=== PATIENT | female | born 1950 | race Caucasian/White ===

== ENCOUNTER 2020-04-25 10:31 | Outpatient (REF) | payer OTHER, SELFPAY ==
--- NOTE | 2020-04-25 10:40 | XR_ITS ---
EXAMINATION: CR X-RAY FOOT AND ANKLE LEFT CLINICAL INFORMATION: Left foot and ankle pain. COMPARISON: None TECHNIQUE: 3 views of the left foot and 3 views of the left ankle were obtained. FINDINGS: There is a hallux valgus deformity with associated hypertrophic changes along the medial margin of the distal first metatarsal head. Mild tarsometatarsal dorsal spurring is seen. The tarsal bones are normally aligned. There is a very small plantar calcaneal spur. The ankle joint and mortise are intact. There is no acute fracture or dislocation. The soft tissues are unremarkable. IMPRESSION: 1. Hallux [place] deformity with associated degenerative changes. 2. Mild degenerative dorsal and plantar calcaneal spurring as detailed above.
== END 2020-04-25 10:32 | disposition home or self-care (01) ==
LOC: HO.HMGCX 10:31
PROVIDERS: Visit Provider Hospitalist
DX: M25.572 Pain in left ankle and joints of left foot (principal)
CPT/HCPCS: 73600; 73620

== ENCOUNTER 2022-01-29 09:14 | Outpatient (REF) | payer OTHER, SELFPAY ==
--- NOTE | ~2022-01-29 | US_ITS ---
EXAMINATION: US VENOUS ULTRASOUND WITH DOPPLER LOWER EXTREMITY, RIGHT CLINICAL INFORMATION: Right leg swelling. COMPARISON: None TECHNIQUE: Ultrasound of the deep veins is performed from the hip to the calf with compression sonography and color and pulse Doppler assessment. Spectral analysis with color-flow imaging is performed. FINDINGS: There is normal venous compression and respiratory variation and augmented flow. The visualized common femoral vein, superficial femoral vein, profunda femoral vein, popliteal vein, and the trifurcation region shows no evidence of deep venous thrombosis. Slight limited visualization of peroneal vein There is a complex fluid collection extending from the popliteal fossa to the proximal medial posterior calf which could represent extension of Jackson's cyst. It measures approximately 5.3 x 0.9 x 2.2 cm. There is a small right groin lymph node measuring 1.8 x 0.6 x 2.0 cm. If the patient's symptoms persist, followup ultrasound in 5 days 7 days might be of value to exclude proximal propagation from a non-visualized calf vein. US/US venous duplex LE RT IMPRESSION: No DVT demonstrated in the right lower extremity. Complex fluid collection extending from popliteal fossa to the proximal medial posterior calf. Right groin lymph node measuring 1.8 cm has benign characteristics.
== END 2022-01-29 09:15 | disposition home or self-care (01) ==
LOC: HO.HMGCX 09:14
PROVIDERS: Visit Provider Internal Medicine
DX: I82.401 Acute embolism and thrombosis of unspecified deep veins of right lower extremity (principal)
CPT/HCPCS: 93971

== ENCOUNTER 2022-05-29 12:24 | Outpatient (REF) | payer OTHER, SELFPAY ==
--- NOTE | ~2022-05-29 | XR_ITS ---
EXAMINATION: XR LUMBOSACRAL SPINE CLINICAL INFORMATION: Radiculopathy. COMPARISON: None TECHNIQUE: Three views of the lumbosacral spine. FINDINGS: Examination demonstrates moderate to severe facet degenerative changes at L3-S1. Mild multilevel disc space narrowing is present, worst at L5-S1. No spondylolysis or spondylolisthesis is seen. There is mild lumbar levocurvature. Vertebral body heights appear maintained. No lytic or sclerotic bony lesion is seen. The paraspinal soft tissues appear unremarkable. The aorta is mildly atherosclerotic. The patient is probably status post cholecystectomy. XR/XR lumbar spine 2-3V IMPRESSION: Degenerative changes.
--- NOTE | ~2022-05-29 | XR_ITS ---
EXAMINATION: XR CERVICAL SPINE CLINICAL INFORMATION: Cervical radiculopathy. COMPARISON: None TECHNIQUE: 3 views of the cervical spine were obtained. FINDINGS: Mild disc space narrowing is present at C5-C6. There is mild reversal of the normal cervical lordosis centered at this level. The remainder of the disc spaces appears maintained. No fracture or subluxation is appreciated. Vertebral body heights appear maintained. No lytic or sclerotic bony lesion is seen. The prevertebral soft tissues appear unremarkable. XR/XR cervical spine 3V IMPRESSION: Mild degenerative changes.
== END 2022-05-29 12:25 | disposition home or self-care (01) ==
LOC: HO.HMGCX 12:24
PROVIDERS: PCP Internal Medicine; Visit Provider Physician Assistant
DX: M54.12 Radiculopathy, cervical region (principal); M54.30 Sciatica, unspecified side
CPT/HCPCS: 72040; 72100

== ENCOUNTER → 2022-11-21 10:59 | Outpatient (BNVA) | payer OTHER, MEDICAID, SELFPAY | PROVIDERS: PCP Internal Medicine; Visit Provider Physician Assistant | DX: M51.36 Other intervertebral disc degeneration, lumbar region (principal); M54.31 Sciatica, right side | CPT/HCPCS: 99202 ==

== ENCOUNTER → 2022-12-19 10:05 | Outpatient (BNVA) | payer OTHER, SELFPAY | PROVIDERS: PCP Internal Medicine; Visit Provider Neurological Surgery | DX: M54.31 Sciatica, right side (principal) | CPT/HCPCS: 99202; Q3014 ==

== ENCOUNTER 2023-01-26 12:09 | Outpatient (REF) | payer OTHER, SELFPAY ==
--- NOTE | ~2023-01-26 | MR_ITS ---
EXAMINATION: MR LUMBAR SPINE WITHOUT CONTRAST CLINICAL INFORMATION: Right-sided sciatica. COMPARISON: Lumbar spine radiographs 05/29/2022. TECHNIQUE: MRI of the lumbar spine was obtained using routine sequences without contrast. FINDINGS: There is subtle grade 1 anterolisthesis of L3 on L4, L4 on L5, and L5 on S1 that appears to be related to advanced facet degenerative changes at each of these 3 levels. Vertebral body heights are preserved. No acute bone marrow signal changes. There is disc desiccation at multiple levels without substantial loss of intervertebral disc height. The tip of the conus medullaris is located at L2. No mass effect on the conus. Visualized distal cord signal intensity is normal. At L1-L2 the annular contour is normal. Bilateral facet degenerative change. No canal stenosis. No mass effect on the traversing or foraminal nerve roots. At L2-L3 the annular contour is normal. Bilateral facet degenerative change. No canal stenosis. No mass effect on the traversing or foraminal nerve roots. At L3-L4 there is a slightly bulging disc. Advanced bilateral facet degenerative change. No canal stenosis. No mass effect on the traversing or foraminal nerve roots. At L4-L5 there is a pseudodisc bulge. Advanced bilateral facet degenerative change. There is a tiny synovial cyst arising from the right L4-L5 articular facet joint causes dorsolateral indentation of the thecal sac. Mild canal stenosis. Subtle abutment of the right traversing L5 nerve roots. No foraminal nerve root compression. At L5-S1 there is a pseudodisc bulge. Advanced bilateral facet degenerative change. No canal stenosis. No mass effect on the traversing or foraminal nerve roots. Limited visualization of the retroperitoneal anatomy reveals no abnormal finding. Psoas and paraspinal muscles are symmetric. MR/MR lumbar spine wo con IMPRESSION: There is multilevel degenerative spondylosis of the lumbar spine with subtle grade 1 anterolisthesis of L3 on L4, L4 on L5, and L5 on S1 related to advanced facet degenerative changes at these 3 levels. Mild canal stenosis at L4-L5. Otherwise no canal compromise. Subtle abutment of the right traversing L5 nerve roots related to degenerative changes at L4-L5. Otherwise no substantial mass effect on the traversing or foraminal nerve roots elsewhere within the lumbar spine.
== END 2023-01-26 12:10 | disposition home or self-care (01) ==
LOC: HO.MRI 12:09
PROVIDERS: Visit Provider Neurological Surgery
DX: M54.31 Sciatica, right side (principal)
CPT/HCPCS: 72148

== ENCOUNTER 2023-02-06 13:18 | Outpatient (AMB) | payer OTHER, SELFPAY ==
--- NOTE | 2023-02-06 14:06 | A.OFFVIS_ITS ---
Intake Intake Visit Reasons: MRI follow up Intake Note: Mrs. Culp here to discuss MRI that was done 01/26/23 @ [facility] [place] Required: No Information Interpreted: non-clinical & clinical Allergies No Known Allergies Allergy (Verified 12/19/22 10:17) Post menopausal: Yes Assessment & Plan Assessment & Plan (1) Synovial cyst of lumbar facet joint: Code(s): M71.38 - Other bursal cyst, other site (2) Sciatica of right side: Code(s): M54.31 - Sciatica, right side Plan Dear colleague, On 02/06/2023 I saw your patient Guerita Culp to review her MRI of the lumbar spine. As you know she suffering from an severe right L5 lumbar radiculopathy with radiating pain down into her leg to her big toe. She takes Tylenol and anti-inflammatory drugs and modified her lifestyle but unfortunately the symptoms remain severe. The MRI confirms compression of the right L5 nerve root from a spinal stenosis and associated synovial cyst. I offered her a decompression and resection of the synovial cyst on 03/14/2023. She will come to your office for preoperative clearance. She needs to stop her anti-inflammatory drugs 5 day prior to surgery. I spent 20 minutes in his consult for review of imaging discussing plan of care. Sonny Viera MD, PhD Spine Fellowship Trained Neurosurgeon Director, [facility] Coding Level of Care Code Est Pt Level 2 (52288) Diagnoses Synovial cyst of lumbar facet joint M71.38 Sciatica of right side M54.31
== END 2023-02-06 14:58 | disposition home or self-care (01) ==
PROVIDERS: PCP Internal Medicine; Visit Provider Neurological Surgery
DX: M71.38 Other bursal cyst, other site (principal); M54.31 Sciatica, right side
CPT/HCPCS: 99212

== ENCOUNTER → 2023-02-06 13:18 | Outpatient (BNVA) | payer OTHER, SELFPAY | PROVIDERS: PCP Internal Medicine; Visit Provider Neurological Surgery | DX: M71.38 Other bursal cyst, other site (principal); M54.31 Sciatica, right side | CPT/HCPCS: 99212 ==

== ENCOUNTER → 2023-03-01 12:47 | Outpatient (BNV) | payer OTHER, SELFPAY | PROVIDERS: Visit Provider Internal Medicine Cardiovascular Disease | DX: R00.1 Bradycardia, unspecified (principal) | CPT/HCPCS: 93010 ==

== ENCOUNTER 2023-03-14 08:55 | Day surgery (SDC) | payer OTHER, SELFPAY ==
--- NOTE | 2023-03-01 | ECG_ITS ---
Test Reason : preop Blood Pressure : / mmHG Vent. Rate : 056 BPM Atrial Rate : 056 BPM P-R Int : 170 ms QRS Dur : 084 ms QT Int : 430 ms P-R-T Axes : 069 -03 047 degrees QTc Int : 414 ms Sinus bradycardia Otherwise normal ECG No previous ECGs available Referred By: Ysabel Barry Electronically Signed By:Felix Norton
[2023-03-01 12:11] VITALS: BP 123/60; PULSE 61; RESP 20; O2SAT 97; BMI 28.1
--- NOTE | 2023-03-01 12:24 | P.CONAN_ITS ---
Documented by User: Ysabel Barry NP 03/13/23 09:24 HPI - Anesthesia Eval Consult details Narrative: 72yo F for Right L4-5 Laminectomy Lumbar Decompression (Foraminotomy) w/ synovial cyst resection, 03/14/23 No recent illness No CP/SOB with minimal activity r/t back and leg pain Hx of DVT ~2 years ago, unprompted. No further anticoag PMFSH Active Problems Active Problems: All Active Problems (Updated 03/01/23 @ 12:04 by Thalia Miller RN) Pain in left ankle and joints of left foot (Acute) Angioedema (Acute) Deep vein thrombosis of right lower extremity (Acute) Degenerative lumbar disc (Acute) Sciatica of right side (Acute) Synovial cyst of lumbar facet joint (Acute) Past Medical History Medical History (Updated 03/01/23 @ 12:04 by Thalia Miller RN) Arthritis Depression DVT (deep venous thrombosis) Heartburn HTN (hypertension) Hypothyroid Lumbar radiculopathy Sciatica Family History Family history of problems with anesthesia: No Surgical History Surgical History (Updated 03/01/23 @ 12:06 by Thalia Miller RN) H/O colonoscopy Hx laparoscopic cholecystectomy Hx of cataract extraction Hx of section Hx of tonsillectomy History of Problems with Anesthesia: No Social History Social History Are you a primary caretaker grounds to a significant other at home: No Do you presently have visiting nurse or other home services: No Patient Tobacco Use Status: Never used Tobacco Use of substances other than those prescribed or required for medical reasons: No Have you been hit, kicked, punched, or otherwise hurt by someone within the past year? If so, by whom?: No Are you DNR?: No Advance Directives: No Advance Directives Information Provided: Yes (brochure given) Advance Directives on File: No Recently lost weight without trying: No Eating poorly because of decreased appetite: No Nutrition Risks: No Nutritional Risk Poor oral hygiene: Yes (no upper teeth, some missing teeth lower) Meds Allergies Allergy/AdvReac Type Severity Reaction Status Date / Time No Known Allergies Allergy Verified 12/19/22 10:17 Home Medications Medication Instructions Recorded Confirmed Last Taken Type amlodipine 10 mg tablet 10 mg PO QAM 04/25/20 03/01/23 Unknown History aripiprazole 5 mg tablet 5 mg PO QAM 05/16/20 03/01/23 Unknown History bupropion HCl 200 mg tablet,12 hr 200 mg PO BID 05/16/20 03/01/23 Unknown History sustained-release cholecalciferol (vitamin D3) 50 50 mcg PO QAM 05/16/20 03/01/23 Unknown History mcg (2,000 unit) tablet fluoxetine 20 mg capsule 60 mg PO QAM 05/16/20 03/01/23 Unknown History gabapentin 100 mg capsule 100 mg PO TID 05/16/20 03/01/23 Unknown History levothyroxine 25 mcg tablet 25 mcg PO QAM 05/16/20 03/01/23 Unknown History quetiapine 25 mg tablet 75 mg PO BEDTIME insomnia 05/16/20 03/01/23 Unknown History trazodone 100 mg tablet 150 mg PO BEDTIME 05/16/20 03/01/23 Unknown History rosuvastatin 40 mg tablet 40 mg PO BEDTIME 03/01/23 03/01/23 Unknown History Exam Exam Date and Time: March 01, 2023 1224 Height,Weight and Vital Signs: Height 5 ft 4 in Weight 74.389 kg Last Vital Signs Pulse 61 03/01/23 12:11 Resp 20 03/01/23 12:11 BP 123/60 03/01/23 12:11 Pulse Ox 97 03/01/23 12:11 O2 Del Method Room Air 03/01/23 12:11 Pertinent Lab Results Pertinent Lab Results: Lab Results 03/01/23 03/01/23 Range/Units 13:02 13:02 WBC 4.5 L (4.8-10.8) X10*3/uL RBC 4.61 (4.20-5.50) X10*6/uL Hgb 13.6 (12.0-16.0) g/dl Hct 41.9 (37.0-47.0) % MCV 90.9 (80.0-98.0) fL MCH 29.5 (27.0-33.0) pg MCHC 32.5 (31.0-35.0) g/dl RDW 14.1 (11.0-16.0) % Plt Count 213 (160-400) X10*3/uL MPV 9.5 (9.4-12.3) fL Absolute Nucleated RBC 0.000 (0.0-0.012) X10*3/uL Nucleated RBC % (auto) 0.0 (0.0-0.2) /100WBC Sodium 142 (135-145) mmol/L Potassium 3.8 (3.3-5.1) mmol/L Chloride 109 H (96-108) mmol/L Carbon Dioxide 25 (22-29) mmol/L Anion Gap 12 (12-20) BUN 13 (9-16) mg/dL Creatinine 1.02 (0.5-1.4) mg/dL Estim Creat Clear Calc 49.2 Estimated GFR 53 Random Glucose 87 (60-115) mg/dL Calcium 9.7 (8.4-10.2) mg/dL Narrative Narrative: EKG 02/2023 Vent. Rate : 056 BPM ? ? Atrial Rate : 056 BPM ?? P-R Int : 170 ms? QRS Dur : 084 ms ? ? QT Int : 430 ms ? ? ? P-R-T Axes : 069 -03 047 degrees ?? QTc Int : 414 ms ? Sinus bradycardia Otherwise normal ECG No previous ECGs available Airway Mallampati Class: III (small mouth opening) TM Dist: >3cm Neck ROM: Full Loose/Missing/Broken Teeth: Yes (No upper teeth, lower molars pulled) Heart: RRR Lungs: CTAB Assessment and Plan Assessment Anesthesia Assessment: Anesthesia Plan Discussed and PAT Visit Final Anesthetic Review Family History of Problems with Anesthesia: No History of Problems with Anesthesia: No Documented by User: Silvestre Cruz MD 03/14/23 08:48 [facility] Past Medical History Medical History (Updated 03/01/23 @ 12:04 by Thalia Miller RN) Arthritis Depression DVT (deep venous thrombosis) Heartburn HTN (hypertension) Hypothyroid Lumbar radiculopathy Sciatica Surgical History Surgical History (Updated 03/01/23 @ 12:06 by Thalia Miller RN) H/O colonoscopy Hx laparoscopic cholecystectomy Hx of cataract extraction Hx of section Hx of tonsillectomy Social History Social History Are you a primary caretaker grounds to a significant other at home: No Do you presently have visiting nurse or other home services: No Patient Tobacco Use Status: Never used Tobacco Use of substances other than those prescribed or required for medical reasons: No Have you been hit, kicked, punched, or otherwise hurt by someone within the past year? If so, by whom?: No Are you DNR?: No Advance Directives: No Advance Directives Information Provided: Yes (brochure given) Advance Directives on File: No Recently lost weight without trying: No Eating poorly because of decreased appetite: No Nutrition Risks: No Nutritional Risk Poor oral hygiene: Yes (no upper teeth, some missing teeth lower) Meds Allergies Allergy/AdvReac Type Severity Reaction Status Date / Time No Known Allergies Allergy Verified 12/19/22 10:17 Home Medications Medication Instructions Recorded Confirmed Last Taken Type amlodipine 10 mg tablet 10 mg PO QAM 04/25/20 03/01/23 Unknown History aripiprazole 5 mg tablet 5 mg PO QAM 05/16/20 03/01/23 Unknown History bupropion HCl 200 mg tablet,12 hr 200 mg PO BID 05/16/20 03/01/23 Unknown History sustained-release cholecalciferol (vitamin D3) 50 50 mcg PO QAM 05/16/20 03/01/23 Unknown History mcg (2,000 unit) tablet fluoxetine 20 mg capsule 60 mg PO QAM 05/16/20 03/01/23 Unknown History gabapentin 100 mg capsule 100 mg PO TID 05/16/20 03/01/23 Unknown History levothyroxine 25 mcg tablet 25 mcg PO QAM 05/16/20 03/01/23 Unknown History quetiapine 25 mg tablet 75 mg PO BEDTIME insomnia 05/16/20 03/01/23 Unknown History trazodone 100 mg tablet 150 mg PO BEDTIME 05/16/20 03/01/23 Unknown History rosuvastatin 40 mg tablet 40 mg PO BEDTIME 03/01/23 03/01/23 Unknown History Assessment and Plan Final Anesthetic Review NPO: Yes ASA Class: II Final Preanesthetic Review: No Changes in Pt Med Stat, Meds/Allgs Chart Reviewed, Consent Obtained/Reviewed and Anes Risks/Benef Reviewed Patient Risk: Intermediate Procedure Risk: Intermediate Anesthetic Plan Anesthetic Plan: GA and Agree w/ Assess. and Plan Disposition: Standard PACU
[2023-03-01 13:23] LABS: Hematocrit 41.9 % (37.0-47.0); Hemoglobin 13.6 g/dl (12.0-16.0); Mean Corpuscular HGB Conc 32.5 g/dl (31.0-35.0); Mean Corpuscular Hemoglobin 29.5 pg (27.0-33.0); Mean Corpuscular Volume 90.9 fL (80.0-98.0); Mean Platelet Volume 9.5 fL (9.4-12.3); Platelet Count 213 X10*3/uL (160-400); Red Blood Count 4.61 X10*6/uL (4.20-5.50); Red Cell Distribution Width 14.1 % (11.0-16.0); White Blood Count 4.5 X10*3/uL (4.8-10.8)
[2023-03-01 14:47] LABS: Anion Gap 12 (12-20); Blood Urea Nitrogen 13 mg/dL (9-16); Calcium 9.7 mg/dL (8.4-10.2); Carbon Dioxide 25 mmol/L (22-29); Chloride 109 mmol/L (96-108); Creatinine Clr Calc Pharmacy 49.2; Estimated Glomerular Filt Rate 53; Glucose Random 87 mg/dL (60-115); Potassium 3.8 mmol/L (3.3-5.1); Sodium 142 mmol/L (135-145)
[2023-03-14] VITALS (8 sets, daily range): BP systolic 136–167; BP diastolic 52–94; PULSE 57–85; RESP 18–20; TEMP 36.4–36.7; O2SAT 6–98
--- NOTE | ~2023-03-14 | FL_ITS ---
EXAMINATION: XR FLUOROSCOPY WITH IMAGES CLINICAL INFORMATION: L4-L5 laminectomy decompression COMPARISON: None available. TECHNIQUE: TOTAL DOSE 4.96 MGY NO DAP TIME 9.6 SEC 1 IMAGE RIGHT SIDE FINDINGS: Single lateral interoperative view demonstrates surgical instruments projecting over the posterior elements posterior to the L4-L5 disc space level. FL/FL guidance in OR IMPRESSION: Fluoroscopy guidance for lumbar spine surgery.
--- NOTE | 2023-03-14 07:05 | MHC.SHP ---
Pre-Procedural Eval Section A Date of Service: 03/14/23 The patient is an INPATIENT: No Changes since office visit: No Cold of Flu in the past 2 weeks, No New Medical Problems, No Changes in Medication and No Patient answered all questions The History & Physical has been completed within 30 days and I have reviewed it.: No Section B Chief Complaint: Sciatica, right side, Other bursal cyst Allergies: Allergies Allergy/AdvReac Type Severity Reaction Status Date / Time No Known Allergies Allergy Verified 12/19/22 10:17 Review of Systems Sugical H&P ROS: Negative: Constitution, Cardiovascular, Respiratory, Neurological, Psychiatric, Hem-Onc, Allergic/Immunologic, Gastrointestinal, Genitourinary, Musculoskeletal, Integumentary, Endocrine and Eyes/Ears/Nose/Throat Exam Surgical H&P Exam: Not Evaluated: HEENT, Not Evaluated: Heart, Not Evaluated: Lungs, Not Evaluated: Extremities, Not Evaluated: Abdomen, Not Evaluated: Skin and Not Evaluated: Neurological Plan I have reviewed the history and physical and performed a pertinent physical examination on my patient. No changes have occurred unless specified. right L4-5 decompression, removal of synovial cyst Time Spent With Patient Time: Total time managing care of this patient today __10__ minutes.
[2023-03-14] MEDS: Lactated Ringers 1,000 ML 100 ML IVCONT (09:10)
[2023-03-14] MEDS: methocarbamoL 750 MG TABLET PO (09:23)
[2023-03-14] MEDS: Gabapentin 300 MG CAPSULE PO (09:23)
--- NOTE | 2023-03-14 11:12 | W.PM.OPN ---
Operative Note Operative Note Date of Service: 03/14/23 Narrative: Preoperative Diagnosis: Extradural benign mass (synovial cyst) compressing the right L5 nerve root Operation: L4-5 Laminotomy for removal of extradural benign mass withh use of microscope Consent Informed Consent was obtained for this operation. I have explained the nature, purpose and benefits of the operation. I have discussed the risks and benefit of the operation including possible complications or adverse events with patient/family. Alternative(s) were discussed with the patient with their relative benefits and risks as well as the consequences of not accepting the operation were included in obtaining consent. Surgeon: JR DING MD, PHD Procedure Assisted By: Theo beasley Description of Procedure This 72-year-old female suffering from a a right L5 lumbar radiculopathy due to a exit dural benign mass compressing the L5 nerve root. The patient was offered a removal of the mass to decompress the nervous structure. The procedure complications were explained. The patient was consented. The patient was brought to the operating room and endotracheally intubated. The patient was turned in prone position on the Nick frame. Prep and drape was done followed by timeout. Physician communication assistant provided access. A mid lumbar incision was made followed by release of the paravertebral muscle on the right side to expose the L4-5 lamina and facet joint. An intraoperative x-ray was obtained to confirm the correct level. The microscope was brought in. I took over the procedure. The high-speed drill was used to do a L4-5 laminotomy. The flavum ligament was opened to expose the underlying thecal sac and start of the L5 nerve root. A large cystic mass was identified and dissected from the L5 nerve root. When the mass was completely relieved from the L5 nerve root and I removed it in toto. Most likely we were dealing with a synovial cyst. A long the nerve root could be easily passed, a sign of adequate decompression of the nerve root . The microscope was removed. Hemostasis was done. Incision was closed in 2 layers. Steri-Strips were used to approximate incision. An OpSite with Tegaderm was used to cover the incision. All sponge needle counts were correct. Patient was extubated and transported in stable is to recovery room. Anesthesia: General Estimated Blood Loss (ml): Minimal Duration of Surgery: Under 60 Minutes Postoperative Plan: Discharge to home
--- NOTE | 2023-03-14 11:42 | PM.DS ---
DS: Providers Provider Date of Service: 03/14/23 Date of discharge: 03/14/23 Primary care physician: Unknown Physician Admitting clinician: Sonny Viera DS: Diagnosis Discharge Diagnosis (1) Sciatica of right side: Status: Acute (2) Synovial cyst of lumbar facet joint: Status: Acute DS: Summary Time Spent with Patient Time attestation: Total time managing care of this patient today ____ minutes. Discharge coordination time: Less than 30 minutes Quality: Safe Use of Opioids Does Pt have an Active Cancer Diagnosis on the Problem List?: No Quality: Stroke Does the patient have a stroke diagnosis?: No Physical Exam Vital Signs: Vital Signs: Last Vital Signs Temp 97.8 F 03/14/23 11:32 Pulse 81 03/14/23 11:37 Resp 20 03/14/23 11:37 BP 161/71 H 03/14/23 11:37 Pulse Ox 6 L 03/14/23 11:37 O2 Del Method Simple Mask 03/14/23 11:37 BMI result Body Mass Index 28.1 Discharge Plan Discharge Patient Disposition: Home, Self-Care Referrals: Physician,Unknown J [Primary Care Provider] - 1 Week Discharge Medications: New oxycodone 5 mg tablet 5 mg PO Q4H Qty: 20 0RF Rx Instructions: Partial Fill upon patient request. docusate sodium [Colace] 100 mg capsule 100 mg PO BID Qty: 20 0RF Continued rosuvastatin 40 mg tablet 40 mg PO BEDTIME amlodipine 10 mg tablet 10 mg PO QAM gabapentin 100 mg capsule 100 mg PO TID levothyroxine 25 mcg tablet 25 mcg PO QAM quetiapine 25 mg tablet 75 mg PO BEDTIME cholecalciferol (vitamin D3) 50 mcg (2,000 unit) tablet 50 mcg PO QAM trazodone 100 mg tablet 150 mg PO BEDTIME bupropion HCl 200 mg tablet sustained-release 12 hr 200 mg PO BID fluoxetine 20 mg capsule 60 mg PO QAM aripiprazole 5 mg tablet 5 mg PO QAM Discharge Orders: Discharge Order (Routine); Ordered 03/14/23 Ordered By: Theo Sawyer Diet: Advance to usual diet Activity on Discharge: As tolerated Activity Restrictions/Additional Instructions: After your spinal surgery we ask you to observe the following restrictions/guidelines: Activity: It is normal to feel some discomfort as you increase your activity, but that will improve with time. We ask you avoid heavy lifting or acitivities that cause pain. As a general rule, 8lbs is a safe limit for lifting right after surgery. Walk as much as you feel comfortable but not to exhaustion. You will feel extra tired the first few days after surgery. Stay well hydrated. It is OK to walk up and down stairs You may return to driving when you are off narcotics (such as vicodin, oxycodone, dilaudid, etc), and you are back to normal functional capacity. If you have any concerns please check with office before driving. Return to work is specific to each patient and each surgery, so please speak with your doctor/PA at first follow up. Please bring paperwork such as FMLA at that time if you need it filled out. Medications: For optimum pain control, it is best to start with a combination of 500 mg of Tylenol every 4 hours with 600 mg of Motrin every 8 hours, and use narcotics as needed in between for breakthrough pain. We will give you a short supply of narcotics after surgery (usually one weeks worth). If you need more please call the office but do not use more than prescribed. You will need to give our office 48 hours notice if you need narcotics refilled and we do not fill narcotics on weekends or evenings. If you are on a narcotic, it is a good idea to take a stool softener such as colace or senna to avoid constipation If you take blood thinner such as aspirin, Plavix, Coumadin, Effient, Eliquis etc for conditions such as Afib, DVT, Pulmonary embolus, coronary disease, stents etc please speak with your surgeon about specific details as to when you can resume these medications. You can resume NSAIDs on post op day 1 (eg: Motrin, Naproxen, etc). Follow up: Please call the office, , after surgery to arrange a 3 week follow up for wound check. Wound Care: You may remove your dressing on the first day after surgery. You may leave open to air. Please do not remove the steri strips underneath. they will fall off on their own in one week. IT IS NORMAL FOR THE WOUND TO OOZE OR BE BLOODY FOR A FEW DAYS AFTER SURGERY. IF THIS HAPPENS JUST PLACE NEW DRESSING OVER IT TO AVOID STAINING CLOTHES. You may shower on post op day # 1 We ask that you do not let the water soak the wound. If it does get wet, just towel dry lightly. Please do not scrub your incision or place any type of chemical/ointment on the wound. No tub baths, pools or jacuzzis for one month. If you have any leaking or redness from your wound, or fevers, please call office
== END 2023-03-14 13:14 | disposition home or self-care (01) ==
PROVIDERS: Nurse Practitioner; Visit Provider Neurological Surgery
PROC: (CPT 63267; principal; 2023-03-14 10:50)
DX: M71.38 Other bursal cyst, other site (principal); M54.16 Radiculopathy, lumbar region; M54.31 Sciatica, right side; M48.061 Spinal stenosis, lumbar region without neurogenic claudication; M79.604 Pain in right leg; Z86.718 Personal history of other venous thrombosis and embolism; M19.90 Unspecified osteoarthritis, unspecified site; I10 Essential (primary) hypertension; E03.9 Hypothyroidism, unspecified; F32.A Depression, unspecified; Z90.49 Acquired absence of other specified parts of digestive tract; Z79.899 Other long term (current) drug therapy
CPT/HCPCS: 63267; 36415; 80048; 85027; 93005; J0131; J0690; J1100; J1170; J1885; J2405

== ENCOUNTER → 2023-03-14 08:55 | Outpatient (BNV) | payer OTHER, SELFPAY | PROVIDERS: Visit Provider Neurological Surgery | DX: M54.31 Sciatica, right side (principal); M71.38 Other bursal cyst, other site | CPT/HCPCS: 63267; 69990 ==

== ENCOUNTER 2023-04-05 14:37 | Outpatient (AMB) | payer OTHER, SELFPAY ==
--- NOTE | 2023-04-05 14:58 | HO.SPINEOV ---
Intake Intake Visit Reasons: 1st post op Intake Note: Ms. Culp is here today for her 1st post-op. Counter Stacker Required: No Allergies No Known Allergies Allergy (Verified 03/14/23 09:26) Assessment & Plan Assessment & Plan (1) S/P spinal surgery: Code(s): Z98.890 - Other specified postprocedural states Plan Guerita is a 72-year-old female comes in today for her 1st postoperative visit. She is s/p L5 laminotomy with synovial cyst removal on 03/14/2023. She states that she is feeling much better than she did pre-operatively. She reports much less right-sided leg pain with very infrequent radicular symptoms. Overall she is very happy with her surgery, and feels that she has already made great progress. She is able to ambulate much better per report but does still have some difficulty going up stairs and getting out of a chair. She reports that she has only been taking ibuprofen for the pain/discomfort and states that it helps alleviate her pain well. She is able to accomplish the majority of her ADLs around her home without difficulty. On exam the patient has no sensory deficits. She is able to ambulate well without the assistance of a cane or walker. She does still have some difficulty rising from a seated position needs to brace herself from the sides of the chair to stand. Her posterior incision site is clean and well healing without signs of erythema, edema or fluctuance. Guerita will be seen again in our office in 6 weeks for her 2nd postoperative visit at which time we will discharge her as a patient if she continues to do well. Total amount of time spent in this visit was 20 minutes in discussion of symptoms, and subsequent plan of care. Winsotn Viera MD,PhD [facility] Coding Level of Care Code Est Pt Level 3 (84041) Diagnoses S/P spinal surgery Z98.890
== END 2023-04-05 15:28 | disposition home or self-care (01) ==
PROVIDERS: Visit Provider Physician Assistant
DX: Z98.890 Other specified postprocedural states (principal)
CPT/HCPCS: 99024

== ENCOUNTER → 2023-04-05 14:37 | Outpatient (BNVA) | payer OTHER, SELFPAY | PROVIDERS: Visit Provider Physician Assistant | DX: Z48.89 Encounter for other specified surgical aftercare (principal) | CPT/HCPCS: 99212 ==

== ENCOUNTER 2023-05-17 14:23 | Outpatient (AMB) | payer OTHER, SELFPAY ==
--- NOTE | 2023-05-17 14:26 | A.OFFVIS_ITS ---
Intake Intake Visit Reasons: 2nd post op with x-rays Intake Note: Pt here for her 2nd post op Lead Customer Service Representative Required: No Allergies No Known Allergies Allergy (Verified 03/14/23 09:26) PFS Medical History Arthritis Heartburn Depression Hypothyroid HTN (hypertension) Lumbar radiculopathy Sciatica DVT (deep venous thrombosis) Surgical History (Updated 04/05/23 @ 15:30 by ANDREW Borjas) H/O colonoscopy Hx laparoscopic cholecystectomy Hx of cataract extraction Hx of tonsillectomy Hx of section Social History Are you a primary career technical supervisor to a significant other at home: No Do you presently have visiting nurse or other home services: No Patient Tobacco Use Status: Never used Tobacco Assessment & Plan Assessment & Plan (1) S/P spinal surgery: Code(s): Z98.890 - Other specified postprocedural states Plan Procedure: L5 laminotomy with synovial cyst removal Guerita comes in today for her 2nd postoperative visit. She reports that she continues to feel satisfied with the surgery that she had. Her right-sided leg pain with radiculopathy and difficulty with ambulation as completely subsided. She states she is essentially back to normal and has no issues or restrictions in her day-to-day living. She did ask questions about some nonspecific cramping type pains that occurs in her left-sided lateral thigh when laying down for bed. She was advised that I do not believe that this is related to her surgery. Overall she feels like she is doing very well postoperatively. Mobility is intact. No neurological deficits. Sensation grossly intact. Patient is able to ambulate well, rises from a seated position without difficulty. Guerita is doing very well, and may be discharged as a patient at this time. She was informed that she may call us if she feels like she needs to follow-up with us. Winston Viera MD,PhD [facility] Coding Level of Care Code New Pt Level 4 (71139) Global (26375) Diagnoses S/P spinal surgery Z98.890
== END 2023-05-17 14:45 | disposition home or self-care (01) ==
PROVIDERS: PCP Internal Medicine; Visit Provider Physician Assistant
DX: Z98.890 Other specified postprocedural states (principal)
CPT/HCPCS: 99024

== ENCOUNTER → 2023-05-17 14:23 | Outpatient (BNVA) | payer OTHER, SELFPAY | PROVIDERS: PCP Internal Medicine; Visit Provider Physician Assistant ==

== ENCOUNTER 2024-01-03 14:02 | Outpatient (AMB) | payer OTHER, SELFPAY ==
--- NOTE | 2024-01-03 14:25 | MHC.OFFVISPS ---
Intake Intake Visit Reasons: depression Doctor Of Veterinary Medicine Required: No Allergies No Known Allergies Allergy (Verified 03/14/23 09:26) Medication List - Last Reconciled 01/03/[address] APRN amlodipine mg PO aripiprazole 5 mg PO QAM bupropion HCl SR 200 mg PO BID cholecalciferol (vitamin D3) 50 mcg PO QAM famotidine 20 mg PO BID fluoxetine 60 mg PO QAM gabapentin 100 mg PO TID levothyroxine 25 mcg PO QAM quetiapine 75 mg PO BEDTIME rosuvastatin 40 mg PO BEDTIME trazodone 150 mg PO BEDTIME HPI- Psychiatric Chief Complaint: depression HPI Narrative: Pt has been off her meds fro months; did not follow up with providers. pt tearful, overwhelmed, sad. Struggling with OCD symptoms; strufgggling to advocate for herself; very little support. pt struggling with housing; struggling with relationship; had surgery for spinal stenosis 6months ago. back pain improved. no therapist. can't do phone therapy. Assessment and Plan Assessment & Plan (1) OCD (obsessive compulsive disorder): Status: Acute Qualifiers: Obsessive-compulsive disorder type: hoarding disorder Qualified Code(s): F42.3 - Hoarding disorder Code(s): F42.9 - Obsessive-compulsive disorder, unspecified (2) Major depressive disorder, recurrent episode with anxious distress: Status: Acute Code(s): F33.9 - Major depressive disorder, recurrent, unspecified Plan restart medications referred to community legal executive assistant for housing help given phone number of Kenisha Michael for therapy - she saw in past and will call her retrun in 2 weeks Medications: New gabapentin 100 mg PO TID 90 caps 0RF bupropion HCl SR (Wellbutrin SR) 100 mg PO QAM 30 tabs 0RF Changed From fluoxetine 60 mg PO QAM To fluoxetine 20 mg PO QAM 30 caps 0RF From quetiapine 75 mg PO BEDTIME insomnia To quetiapine 50 mg (2 x 25 mg) PO BEDTIME 60 tabs 0RF insomnia Counseling and coordination of Care Pt. Self Management counseling: Maintenance-social rhythm, Sleep hygiene, Cognitive restructuring, General coping skills and Problem solving Medication management counseling: Effectiveness, Side effects, Dosing range, Duration, Drug interaction and Adherence Diagnosis and Prognosis Counseling: Accuracy of diagnosis, Prognosis over time, Impact of diagnosis on life functions, Impact of family relationship, Problematic behaviors secondary to diagnosis and Adequacy of current interventions Details: I spent 45 minutes reviewing the record, seeing the patient and documenting in the medical record. Counseling provided to the patient/caregiver as outlined below. Addressed patient/caregiver concerns regarding current medication regime including effective adherence. Addressed patient/caregiver concerns regarding diagnosis and prognosis including accuracy of diagnosis, prognosis over time, impact of diagnosis. Addressed patient/caregiver concerns regarding impact of recent stressors. [facility] Medical History (Updated 01/03/24 @ 15:[address] APRN) Arthritis Heartburn Depression Hypothyroid HTN (hypertension) Lumbar radiculopathy Sciatica DVT (deep venous thrombosis) Surgical History (Updated 04/05/23 @ 15:30 by ANDREW Borjas) H/O colonoscopy Hx laparoscopic cholecystectomy Hx of cataract extraction Hx of tonsillectomy Hx of section Social History Are you a primary client care representative to a significant other at home: No Do you presently have visiting nurse or other home services: No Patient Tobacco Use Status: Never used Tobacco Coding Level of Care Code Est Pt Level 4 (27281) Therapy 30m w/E&M (06027) Diagnoses Hoarding disorder F42.3 Obsessive-compulsive disorder type: hoarding disorder Major depressive disorder, recurrent episode with anxious distress F33.9 Comment CBT and problem solving therapy to reduce distress and increase self advocacy
== END 2024-01-03 15:49 | disposition home or self-care (01) ==
LOC: HO.HOP 14:02
PROVIDERS: PCP Internal Medicine; Visit Provider Clinical Nurse Specialist Psychiatric/Mental Health
DX: F42.3 Hoarding disorder (principal); F33.9 Major depressive disorder, recurrent, unspecified
CPT/HCPCS: 90833; 99214

== ENCOUNTER → 2024-01-03 14:02 | Outpatient (BNVA) | payer OTHER, SELFPAY | PROVIDERS: PCP Internal Medicine; Visit Provider Clinical Nurse Specialist Psychiatric/Mental Health | DX: F42.3 Hoarding disorder (principal); F33.9 Major depressive disorder, recurrent, unspecified; Z79.899 Other long term (current) drug therapy | CPT/HCPCS: 99212 ==

== ENCOUNTER 2024-01-17 10:53 | Outpatient (AMB) | payer OTHER, SELFPAY ==
--- NOTE | 2024-01-17 11:01 | MHC.OFFVISPS ---
Intake Intake Visit Reasons: depression, OCD (obsessive compulsive disorder) Motor Vehicle Licence Examiner Required: No Allergies No Known Allergies Allergy (Verified 03/14/23 09:26) Medication List - Last Reconciled 01/17/[address] APRN amlodipine mg PO aripiprazole 5 mg PO QAM bupropion HCl SR (Wellbutrin SR) 100 mg PO QAM cholecalciferol (vitamin D3) 50 mcg PO QAM famotidine 20 mg PO BID fluoxetine 20 mg PO QAM gabapentin 100 mg PO TID levothyroxine 25 mcg PO QAM quetiapine 50 mg (2 x 25 mg) PO BEDTIME rosuvastatin 40 mg PO BEDTIME trazodone 150 mg PO BEDTIME HPI- Psychiatric Chief Complaint: depression, OCD (obsessive compulsive disorder) HPI Narrative: Guerita reports mood is improving and her mind is racing less since restarting meds; she is less tearful. She is less overwhelmed; she continues out clean out her apartment and found a storage unit for her belongings. Although difficult to let go of some belongings she is slowly doing it jeffery house was overflowing with furniture, clothing, books etc. She is setting limits with her friend more easily. she is sleeping well. no sedation, no dizziness. no medical changes. She did not contact legal word processor yet to help her with landlord harassment Past Psychiatric History: hx of OCD Hoarding type treated outpatient by Dr Sarmiento in past Subjective Subjective Subjective Medication Compliance: Yes Side effects from medications: No Review of Systems Medical Review of Systems: unchanged Mental Status Exam Mental Status Exam Patient Appearance: Well Grooomed and Appropriate Patient Orientation: Person, Place, Time and Situation Level of Consciousness: Awake and Alert Patient Behavior: Appropriate and Anxious Mood Description: Anxious Affect Description: Anxious Patient Cognition Impaired: No Ability to Follow Directions: Good Speech Pattern: Clear and Appropriate Memory Description: Intact Hallucinations: None Thought Process: Intact and Goal Oriented Thought Content: positive for Intact and positive for Goal Oriented Judgement: Good Assessment and Plan Assessment & Plan (1) OCD (obsessive compulsive disorder): Status: Acute Qualifiers: Obsessive-compulsive disorder type: hoarding disorder Qualified Code(s): F42.3 - Hoarding disorder Code(s): F42.9 - Obsessive-compulsive disorder, unspecified Plan increase the prozac back up to 80 mg by adding 20mg daily every 10 days- written instructions given to patient continue wellbutrin SR 100mg qam for now abilify 5 mg daily seroquel 25 mg take 1-3 at bedtime as needed for sleep trazodone 100-150 mg at bedtime as need Medications: New trazodone 150 mg (1.5 x 100 mg) PO BEDTIME 45 tabs 2RF aripiprazole 5 mg PO QAM 30 tabs 2RF Changed From fluoxetine 20 mg PO QAM 30 caps 0RF To fluoxetine 80 mg (4 x 20 mg) PO QAM 120 caps 2RF Refilled bupropion HCl SR (Wellbutrin SR) 100 mg PO QAM 30 tabs 0RF quetiapine 50 mg (2 x 25 mg) PO BEDTIME 60 tabs 0RF insomnia Counseling and coordination of Care Pt. Self Management counseling: Maintenance-social rhythm, Mod caffeine/ETOH intake, Sleep hygiene and General coping skills Medication management counseling: Effectiveness, Side effects, Dosing range, Duration, Drug interaction and Adherence Diagnosis and Prognosis Counseling: Accuracy of diagnosis, Prognosis over time, Impact of diagnosis on life functions, Impact of family relationship, Problematic behaviors secondary to diagnosis and Adequacy of current interventions Details: I spent 45 minutes reviewing the record, seeing the patient and documenting in the medical record. Counseling provided to the patient/caregiver as outlined below. Addressed patient/caregiver concerns regarding current medication regime including effective adherence. Addressed patient/caregiver concerns regarding diagnosis and prognosis including accuracy of diagnosis, prognosis over time, impact of diagnosis. Addressed patient/caregiver concerns regarding impact of recent stressors. [facility] Medical History (Updated 01/03/24 @ 15:[address] APRN) Arthritis Heartburn Depression Hypothyroid HTN (hypertension) Lumbar radiculopathy Sciatica DVT (deep venous thrombosis) Surgical History (Updated 04/05/23 @ 15:30 by ANDREW Borjas) H/O colonoscopy Hx laparoscopic cholecystectomy Hx of cataract extraction Hx of tonsillectomy Hx of section Social History Are you a primary career development engineer to a significant other at home: No Do you presently have visiting nurse or other home services: No Patient Tobacco Use Status: Never used Tobacco Social History: lives alone; has a male friend Substance History: none Trauma History: none known Coding Level of Care Code Est Pt Level 4 (01561) Therapy 30m w/E&M (95521) Diagnoses Hoarding disorder F42.3 Obsessive-compulsive disorder type: hoarding disorder Comment CBT and problem solving therapy to reduce hoarding and advocate for self with landlord
== END 2024-01-17 13:56 | disposition home or self-care (01) ==
LOC: HO.HOP 10:53
PROVIDERS: PCP Internal Medicine; Visit Provider Clinical Nurse Specialist Psychiatric/Mental Health
DX: F42.3 Hoarding disorder (principal)
CPT/HCPCS: 90833; 99214

== ENCOUNTER → 2024-01-17 10:53 | Outpatient (BNVA) | payer OTHER, SELFPAY | PROVIDERS: PCP Internal Medicine; Visit Provider Clinical Nurse Specialist Psychiatric/Mental Health | DX: F42.3 Hoarding disorder (principal) | CPT/HCPCS: 99212 ==

== ENCOUNTER 2024-02-14 10:51 | Outpatient (AMB) | payer OTHER, SELFPAY ==
--- NOTE | 2024-02-14 10:49 | A.OFFPSYCH_ITS ---
Intake Intake Visit Reasons: depression Bonbon Dipper Required: No Allergies No Known Allergies Allergy (Verified 03/14/23 09:26) Medication List - Last Reconciled 02/14/[address] APRN amlodipine mg PO aripiprazole 5 mg PO QAM bupropion HCl SR 100 mg PO QAM cholecalciferol (vitamin D3) 50 mcg PO QAM famotidine 20 mg PO BID fluoxetine 80 mg (4 x 20 mg) PO QAM gabapentin 100 mg PO TID levothyroxine 25 mcg PO QAM quetiapine 50 mg (2 x 25 mg) PO BEDTIME PRN rosuvastatin 40 mg PO BEDTIME trazodone 150 mg (1.5 x 100 mg) PO BEDTIME HPI- Psychiatric Chief Complaint: depression HPI Narrative: much improved mood and anxiety; she is functioning better; better able to advocate fro herself. She is cleaning out her apartmetn where she had hoarded things. It is hard for her to get rid of things so she is getting plastic containers and has rented a storage unit. she is giving away some tings which is progress fro her. no side effects from medications; no SI or HI . pt feels more hopeful about future Past Psychiatric History: hx of OCD Hoarding type treated outpatient by Dr Sarmiento in past Subjective Subjective Subjective Medication Compliance: Yes Side effects from medications: No Review of Systems Medical Review of Systems: unchanged Mental Status Exam Mental Status Exam Patient Appearance: Well Grooomed and Appropriate Patient Orientation: Person, Place, Time and Situation Level of Consciousness: Awake and Appropriate Patient Behavior: Appropriate and Cooperative Mood Description: Happy and Anxious Affect Description: Happy and Anxious Patient Cognition Impaired: No Ability to Follow Directions: Good Speech Pattern: Clear Memory Description: Intact Hallucinations: None Delusions: Not Present Thought Process: Intact Thought Content: positive for Intact Judgement: Good Assessment and Plan Assessment & Plan (1) Major depressive disorder, recurrent episode with anxious distress: Status: Acute Code(s): F33.9 - Major depressive disorder, recurrent, unspecified (2) OCD (obsessive compulsive disorder): Status: Acute Qualifiers: Obsessive-compulsive disorder type: hoarding disorder Qualified Code(s): F42.3 - Hoarding disorder Code(s): F42.9 - Obsessive-compulsive disorder, unspecified Counseling and coordination of Care Pt. Self Management counseling: Maintenance-social rhythm, Mod caffeine/ETOH intake and Behavior activation Medication management counseling: Effectiveness, Side effects, Dosing range, Duration, Drug interaction and Adherence Diagnosis and Prognosis Counseling: Accuracy of diagnosis, Prognosis over time, Impact of diagnosis on life functions and Adequacy of current interventions Details: I spent 48 minutes reviewing the record, seeing the patient and documenting in the medical record. Counseling provided to the patient/caregiver as outlined below. Addressed patient/caregiver concerns regarding current medication regime including effective adherence. Addressed patient/caregiver concerns regarding diagnosis and prognosis including accuracy of diagnosis, prognosis over time, impact of diagnosis. Addressed patient/caregiver concerns regarding impact of recent stressors. [facility] Medical History (Updated 01/03/24 @ 15:[address] APRN) Arthritis Heartburn Depression Hypothyroid HTN (hypertension) Lumbar radiculopathy Sciatica DVT (deep venous thrombosis) Surgical History (Updated 04/05/23 @ 15:30 by ANDREW Borjas) H/O colonoscopy Hx laparoscopic cholecystectomy Hx of cataract extraction Hx of tonsillectomy Hx of section Social History Are you a primary health care legal assistant to a significant other at home: No Do you presently have visiting nurse or other home services: No Patient Tobacco Use Status: Never used Tobacco Social History: lives alone; has a male friend Substance History: none Trauma History: none known Coding Level of Care Code Est Pt Level 4 (70488) Therapy 30m w/E&M (76794) Diagnoses Major depressive disorder, recurrent episode with anxious distress F33.9 Hoarding disorder F42.3 Obsessive-compulsive disorder type: hoarding disorder Comment problem solving therapy re: hoarding and housing issues
== END 2024-02-14 11:22 | disposition home or self-care (01) ==
LOC: HO.HOP 10:51
PROVIDERS: PCP Internal Medicine; Visit Provider Clinical Nurse Specialist Psychiatric/Mental Health
DX: F33.9 Major depressive disorder, recurrent, unspecified (principal); F42.3 Hoarding disorder
CPT/HCPCS: 90833; 99214

== ENCOUNTER → 2024-02-14 10:51 | Outpatient (BNVA) | payer OTHER, SELFPAY | PROVIDERS: PCP Internal Medicine; Visit Provider Clinical Nurse Specialist Psychiatric/Mental Health | DX: F33.9 Major depressive disorder, recurrent, unspecified (principal); F42.3 Hoarding disorder; Z71.89 Other specified counseling; Z60.2 Problems related to living alone | CPT/HCPCS: 99212 ==

== ENCOUNTER 2024-03-27 07:57 | Outpatient (AMB) | payer OTHER, SELFPAY ==
--- NOTE | 2024-03-27 07:59 | MHC.OFFWIV ---
Intake Vital Signs 03/27/24 08:00 Height 5 ft 4 in Weight 178 lb BMI 30.6 BP 154/70 H Blood Pressure Location Rt brachial Position Sitting Pulse 85 Pulse Source Pulse Oximeter Temp 98.6 F Temp Source Oral Pulse Oximetry (%) 98 Oxygen Delivery Method Room Air Intake Visit Reasons: EP RT knee swelling Intake Note: pt c/o RT knee pain and swelling. Started 2 weeks ago Patient Tobacco Use Status: Never used Tobacco Allergies No Known Allergies Allergy (Verified 03/27/24 07:59) Do you need a note to return to daycare/school/sports/work: No HPI HPI Comments History of Present Illness Details Patient is a 73-year-old female complaining of right knee pain and swelling for the last 2 weeks. She denies any trauma or incident that started this pain. She states it is a little worse when she tries to walk upper downstairs but as the day goes along, it gets more and more swollen. She has tried using a knee brace but did not think that helped very much. She has never had this happened before. [facility] Medical History (Updated 03/27/24 @ 08:18 by Liberty Bowie PA-C) Arthritis Heartburn Depression Hypothyroid HTN (hypertension) Lumbar radiculopathy Sciatica DVT (deep venous thrombosis) Surgical History (Updated 04/05/23 @ 15:30 by ANDREW Borjas) H/O colonoscopy Hx laparoscopic cholecystectomy Hx of cataract extraction Hx of tonsillectomy Hx of section Social History Are you a primary manager critical care to a significant other at home: No Do you presently have visiting nurse or other home services: No Patient Tobacco Use Status: Never used Tobacco Review of Systems Const All systems reviewed & are unremarkable except as noted in HPI and below Physical Exam Vital Signs: Last Vital Signs Temp 98.6 F 03/27/24 08:00 Pulse 85 03/27/24 08:00 BP 154/70 H 03/27/24 08:00 Pulse Ox 98 03/27/24 08:00 Oxygen Delivery Method Room Air 03/27/24 08:00 BMI result Body Mass Index 30.6 Const General: cooperative, healthy appearing, comfortable and no acute distress Orientation/consciousness: patient oriented x3 Limitations: no limitations HEENT Head: Yes normal to inspection Resp Effort & Inspection: normal respiratory effort and able to speak in complete sentences Neuro General: patient oriented x3 Extrem Right lower extremity: knee Details: abnormal to inspection (swelling) Details: asymmetryic, tenderness (posterior knee), swelling, normal ROM and knee ligament exam normal; no abrasions, no lacerations, no ecchymosis, no deformity and no unusual warmth Assessment & Plan Assessment & Plan (1) Posterior right knee pain: Code(s): M25.561 - Pain in right knee Plan: Likely a Jackson's cyst. Diego wrapped knee for patient, recommended she wear that around the clock for the next 4-5 days, she can remove when she is showering. Recommended Aleve around the clock for the next 4-5 days. If no improvement with her in her symptoms she should follow up with her PCP for further imaging, question meniscus tear. Plan see above Coding Level of Care Code New Pt Level 3 (04530) Diagnoses Posterior right knee pain M25.561
[2024-03-27 08:00] VITALS: BP 154/70; PULSE 85; TEMP 37; O2SAT 98; BMI 30.6
== END 2024-03-27 08:24 | disposition home or self-care (01) ==
PROVIDERS: PCP Internal Medicine; Visit Provider Physician Assistant
DX: M25.561 Pain in right knee (principal)
CPT/HCPCS: 99203

== ENCOUNTER 2024-03-31 14:36 | Emergency (ER) | payer OTHER, SELFPAY ==
--- NOTE | ~2024-03-31 | US_ITS ---
EXAMINATION: US TRIPLEX LOWER EXTREMITY, RIGHT CLINICAL INFORMATION: Leg pain and swelling COMPARISON: None available. TECHNIQUE: Color-flow triplex imaging with spectral analysis and compression Doppler were performed on the right lower extremity. FINDINGS: Respiratory variation, normal compression and augmented flow are noted throughout the right lower extremity. The visualized common femoral vein, superficial femoral vein, profunda femoral vein, popliteal vein and midcalf peroneal and posterior tibial venous segments show no evidence of deep venous thrombosis. Jackson cyst measures 6.5 x 2.9 x 2.9 cm US/US venous duplex LE RT IMPRESSION: No evidence of deep venous thrombosis involving the right lower extremity. Electronically signed by: Rodrigo Lieberman MD 03/31/2024 04:16 PM EDT
[2024-03-31 14:43] VITALS: BP 154/62; PULSE 70; RESP 16; TEMP 36.7; O2SAT 98; BMI 30.4
--- NOTE | 2024-03-31 14:44 | ED.GENADULT ---
HPI - General Adult General Chief complaint: Extremity Injury, Lower Stated complaint: quest DVT r leg sent in by pcp Time Seen by Provider: 03/31/24 15:15 Related Data Home Medications ?Medication ?Instructions ?Recorded ?Confirmed cholecalciferol (vitamin D3) 50 50 mcg PO QAM 05/16/20 02/14/24 mcg (2,000 unit) tablet levothyroxine 25 mcg tablet 25 mcg PO QAM 05/16/20 02/14/24 rosuvastatin 40 mg tablet 40 mg PO BEDTIME 03/01/23 02/14/24 famotidine 20 mg tablet 20 mg PO BID 01/03/24 02/14/24 amlodipine 5 mg tablet mg PO ONCE 03/27/24 Previous Rx's ?Medication ?Instructions ?Recorded aripiprazole 5 mg tablet 5 mg PO QAM #30 tabs 01/17/24 fluoxetine 20 mg capsule 80 mg (4 x 20 mg) PO QAM #120 caps 01/17/24 trazodone 100 mg tablet 150 mg (1.5 x 100 mg) PO BEDTIME 01/17/24 #45 tabs bupropion HCl 100 mg tablet,12 hr 100 mg PO QAM #30 tabs 02/03/24 sustained-release gabapentin 100 mg capsule 100 mg PO TID #90 caps 02/03/24 quetiapine 25 mg tablet 50 mg (2 x 25 mg) PO BEDTIME PRN 02/03/24 for insomnia #60 tabs Allergies Allergy/AdvReac Type Severity Reaction Status Date / Time No Known Allergies Allergy Verified 03/31/24 14:45 [facility] Past Medical History Medical History (Updated 03/31/24 @ 16:58 by ANDREW Ch) Arthritis Heartburn Depression Hypothyroid HTN (hypertension) Lumbar radiculopathy Sciatica DVT (deep venous thrombosis) Surgical History (Updated 04/05/23 @ 15:30 by ANDREW Borjas) H/O colonoscopy Hx laparoscopic cholecystectomy Hx of cataract extraction Hx of tonsillectomy Hx of section Social History Social History Are you a primary coronary care unit nurse to a significant other at home: No Do you presently have visiting nurse or other home services: No Patient Tobacco Use Status: Never used Tobacco Advance Directives: No Advance Directives Information Provided: Yes Physical Exam ED Vital Signs: Vital Signs - 24 hr 03/31/24 14:43 03/31/24 17:15 Temperature 98.0 F 98.0 F Pulse Rate 70 70 Respiratory Rate 16 16 Blood Pressure 154/62 H 154/62 H Pulse Oximetry 98 98 Oxygen Delivery Method Room Air Room Air BMI result Body Mass Index 30.4 Course Course Course Narrative: This is an RME done by ANDREW Wynn: Additional HPI, ROS, PE not included below will be deferred to primary provider. 73yo F with PMHx of DVTs presents from urgent care with RLE 9/10 pain and swelling. Sent in for r/o DVT not on anticoag. Denies fevers, chills, CP, SOB. Appearance: Alert.? Oriented X3.? No acute cardiopulmonary distress distress.? Head: Normocephalic, atraumatic CVS: Pulses normal.? Respiratory: No respiratory distress.? Skin: ? Normal skin color. Extremities: Edema overlying R knee. Painful ROM affecting R knee Neuro: Oriented X 3.? Medical Decision Making Lab Data 03/31/24 15:09 03/31/24 15:09 Labs: Lab Results 03/31/24 Range/Units 15:09 WBC 4.6 L (4.8-10.8) X10*3/uL RBC 4.43 (4.20-5.50) X10*6/uL Hgb 13.3 (12.0-16.0) g/dl Hct 40.1 (37.0-47.0) % MCV 90.5 (80.0-98.0) fL MCH 30.0 (27.0-33.0) pg MCHC 33.2 (31.0-35.0) g/dl RDW 13.2 (11.0-16.0) % Plt Count 244 (160-400) X10*3/uL MPV 9.0 L (9.4-12.3) fL Immature Gran % (Auto) 0.2 (0.0-0.4) % Neut % (Auto) 52.9 (45-73) % Lymph % (Auto) 35.6 (20-40) % [place] % (Auto) 7.6 (2-11) % Eos % (Auto) 2.8 (0-4) % Baso % (Auto) 0.9 (0-2) % Lymph # (Auto) 1.7 (1.2-4.9) X10*3/uL [place] # (Auto) 0.4 (0.1-1.2) X10*3/uL Eos # (Auto) 0.1 (0.0-0.4) X10*3/uL Baso # (Auto) 0.0 (0.0-0.2) X10*3/uL Abs Immat Gran (auto) 0.01 (0.00-0.03) X10*3/uL Absolute Neuts (auto) 2.5 (2.0-8.3) x10*3/uL Absolute Nucleated RBC 0.000 (0.0-0.012) X10*3/uL Nucleated RBC % (auto) 0.0 (0.0-0.2) /100WBC PT 11.1 (11.1-13.3) SEC INR 0.9 (0.9-1.1) Sodium 143 (135-145) mmol/L Potassium 4.2 (3.3-5.1) mmol/L Chloride 109 H (96-108) mmol/L Carbon Dioxide 27 (22-29) mmol/L Anion Gap 11 L (12-20) BUN 26 H (9-16) mg/dL Creatinine 0.83 (0.5-1.4) mg/dL Estim Creat Clear Calc 61.9 Estimated GFR > 60 Random Glucose 116 H (60-115) mg/dL Calcium 10.3 H D (8.4-10.2) mg/dL Magnesium 2.4 (1.6-2.6) mg/dL Total Bilirubin 0.3 (0.0-1.0) mg/dL AST 15 (5-31) U/L ALT 10 (0-31) U/L Alkaline Phosphatase 87 (39-117) U/L Total Protein 7.5 (6.5-8.0) g/dL Albumin 4.3 (3.5-5.0) g/dL Discharge Plan Discharge Clinical Impression: Jackson cyst Qualifiers: Laterality: right Qualified Code(s): M71.21 - Synovial cyst of popliteal space [Jackson], right knee Patient Disposition: Home, Self-Care Instructions: Bakers Cyst (ED) Additional Instructions: Your ultrasound today did not show any evidence of blood clot. You have a 6-1/2 cm Jackson's cyst which is causing your symptoms. Recommend compression with Diego wrap and elevation when possible. Take Motrin and Tylenol as needed for pain. Follow-up with your doctor. If you develop new or worsening symptoms call 911 or come back to the ER for further evaluation. EXAMINATION: US TRIPLEX LOWER EXTREMITY, RIGHT CLINICAL INFORMATION: Leg pain and swelling COMPARISON: None available. TECHNIQUE: Color-flow triplex imaging with spectral analysis and compression Doppler were performed on the right lower extremity. FINDINGS: Respiratory variation, normal compression and augmented flow are noted throughout the right lower extremity. The visualized common femoral vein, superficial femoral vein, profunda femoral vein, popliteal vein and midcalf peroneal and posterior tibial venous segments show no evidence of deep venous thrombosis. Jackson cyst measures 6.5 x 2.9 x 2.9 cm US/US venous duplex LE RT IMPRESSION: No evidence of deep venous thrombosis involving the right lower extremity. Prescriptions: No Action gabapentin 100 mg capsule 100 mg PO TID Qty: 90 2RF bupropion HCl 100 mg tablet sustained-release 12 hr 100 mg PO QAM Qty: 30 2RF quetiapine 25 mg tablet 50 mg PO BEDTIME PRN (Reason: for insomnia) Qty: 60 2RF rosuvastatin 40 mg tablet 40 mg PO BEDTIME levothyroxine 25 mcg tablet 25 mcg PO QAM cholecalciferol (vitamin D3) 50 mcg (2,000 unit) tablet 50 mcg PO QAM famotidine 20 mg tablet 20 mg PO BID amlodipine 5 mg tablet PO ONCE fluoxetine 20 mg capsule 80 mg PO QAM Qty: 120 2RF aripiprazole 5 mg tablet 5 mg PO QAM Qty: 30 2RF trazodone 100 mg tablet 150 mg PO BEDTIME Qty: 45 2RF Interventions: ED Discharge Assessment Last Done: 03/31/24 17:15 Discharge Date/Time: 03/31/24 17:15 Print Language: Slovak
[2024-03-31 15:12] LABS: MANUAL DIFF FLAG NO
[2024-03-31 15:15] LABS: Basophils Percent Auto 0.9 % (0-2); Eosinophils Absolute Auto 0.1 X10*3/uL (0.0-0.4); Eosinophils Percent Auto 2.8 % (0-4); Hematocrit 40.1 % (37.0-47.0); Hemoglobin 13.3 g/dl (12.0-16.0); Imm Gran Abs Auto 0.01 X10*3/uL (0.00-0.03); Imm Gran Pct Auto 0.2 % (0.0-0.4); Lymphocytes Absolute Auto 1.7 X10*3/uL (1.2-4.9); Lymphocytes Percent Auto 35.6 % (20-40); Mean Corpuscular HGB Conc 33.2 g/dl (31.0-35.0); Mean Corpuscular Volume 90.5 fL (80.0-98.0); Monocytes Absolute Auto 0.4 X10*3/uL (0.1-1.2); Monocytes Percent Auto 7.6 % (2-11); Neutrophils Absolute Auto 2.5 x10*3/uL (2.0-8.3); Neutrophils Percent Auto 52.9 % (45-73); Platelet Count 244 X10*3/uL (160-400); Red Blood Count 4.43 X10*6/uL (4.20-5.50); Red Cell Distribution Width 13.2 % (11.0-16.0); White Blood Count 4.6 X10*3/uL (4.8-10.8)
[2024-03-31 15:20] LABS: INTERNATIONAL NORM RATIO 0.9 (0.9-1.1); Prothrombin Time 11.1 SEC (11.1-13.3)
[2024-03-31 15:32] LABS: Alanine Aminotransferase 10 U/L (0-31); Albumin Level 4.3 g/dL (3.5-5.0); Alkaline Phosphatase 87 U/L (39-117); Anion Gap 11 (12-20); Aspartate Amino Transferase 15 U/L (5-31); Bilirubin Total 0.3 mg/dL (0.0-1.0); Blood Urea Nitrogen 26 mg/dL (9-16); Calcium 10.3 mg/dL (8.4-10.2); Carbon Dioxide 27 mmol/L (22-29); Chloride 109 mmol/L (96-108); Creatinine Clr Calc Pharmacy 61.9; Estimated Glomerular Filt Rate > 60; Glucose Random 116 mg/dL (60-115); Magnesium 2.4 mg/dL (1.6-2.6); Potassium 4.2 mmol/L (3.3-5.1); Sodium 143 mmol/L (135-145); Total Protein 7.5 g/dL (6.5-8.0)
--- NOTE | 2024-03-31 16:24 | ED_ITS ---
HPI - Extremity Injury (Lower) General Chief Complaint: Extremity Injury, Lower Stated Complaint: quest DVT r leg sent in by pcp Time Seen by Provider: 03/31/24 15:15 Source: patient Mode of arrival: ambulatory Limitations: no limitations History of Present Illness ED Provider: Karan Beltran PA-C HPI Narrative: 73 yo female with PMH of HTN, HLD, medication controlled. Presents with RLE pain, swelling, and concerns for clot. States there is slight numbness to right lower side of foot. Reports hx of DVT RLE x 1.5 yrs ago s/p anticoagulation x 6mo (resolved). States was seen at urgent care on 03/27/24 for this RLE pain and swelling, and slight numbness. She reports at urgent care she was told she had a jackson's cyst and given directions to use DIEGO wrap. Reports she needs to have this re-evaluated as she is not assured this is indeed the issue and not a DVT like before. Denies redness or streaking of RLE. MD complaint: knee injury Onset (ago): day(s) Type of Injury: unknown Place: home Severity: moderate Severity scale (1-10): 5 Relieving factors: rest Exacerbating factors: weight bearing, movement and palpation Associated symptoms: ambulatory Other symptoms: none Related Data Home Medications ?Medication ?Instructions ?Recorded ?Confirmed cholecalciferol (vitamin D3) 50 50 mcg PO QAM 05/16/20 02/14/24 mcg (2,000 unit) tablet levothyroxine 25 mcg tablet 25 mcg PO QAM 05/16/20 02/14/24 rosuvastatin 40 mg tablet 40 mg PO BEDTIME 03/01/23 02/14/24 famotidine 20 mg tablet 20 mg PO BID 01/03/24 02/14/24 amlodipine 5 mg tablet mg PO ONCE 03/27/24 Previous Rx's ?Medication ?Instructions ?Recorded aripiprazole 5 mg tablet 5 mg PO QAM #30 tabs 01/17/24 fluoxetine 20 mg capsule 80 mg (4 x 20 mg) PO QAM #120 caps 01/17/24 trazodone 100 mg tablet 150 mg (1.5 x 100 mg) PO BEDTIME 01/17/24 #45 tabs bupropion HCl 100 mg tablet,12 hr 100 mg PO QAM #30 tabs 02/03/24 sustained-release gabapentin 100 mg capsule 100 mg PO TID #90 caps 02/03/24 quetiapine 25 mg tablet 50 mg (2 x 25 mg) PO BEDTIME PRN 02/03/24 for insomnia #60 tabs Allergies Allergy/AdvReac Type Severity Reaction Status Date / Time No Known Allergies Allergy Verified 03/31/24 14:45 Review of Systems 2 Review of Systems: Yes all other systems are reviewed and are negative [facility] Past Medical History Medical History (Updated 03/31/24 @ 16:58 by ANDREW Ch) Arthritis Heartburn Depression Hypothyroid HTN (hypertension) Lumbar radiculopathy Sciatica DVT (deep venous thrombosis) Surgical History (Updated 04/05/23 @ 15:30 by ANDREW Borjas) H/O colonoscopy Hx laparoscopic cholecystectomy Hx of cataract extraction Hx of tonsillectomy Hx of section Social History Social History Are you a primary youth care specialist to a significant other at home: No Do you presently have visiting nurse or other home services: No Patient Tobacco Use Status: Never used Tobacco Advance Directives: No Advance Directives Information Provided: Yes Physical Exam 2 Vital Signs: Vital Signs: Last Vital Signs Temp 98.0 F 03/31/24 17:15 Pulse 70 03/31/24 17:15 Resp 16 03/31/24 17:15 BP 154/62 H 03/31/24 17:15 Pulse Ox 98 03/31/24 17:15 O2 Del Method Room Air 03/31/24 17:15 BMI result Body Mass Index 30.4 Appearance: Alert. Oriented X3. No acute distress. HEENT: normal inspection CVS: Normal heart rate and rhythm. Pulses normal. Respiratory: No respiratory distress. Skin: Skin warm and dry. Normal skin color. Normal skin turgor. No rashes. Extremities: Right lower extremity with moderate generalized swelling of the right knee and lower leg, nonpitting, right knee is warm to palpation. Full range of motion of the knee, fullness of the popliteal space but no palpable mass. Foot is warm and well-perfused, neurovascularly intact distally Neuro: Oriented X 3. No motor deficit. No sensory deficit. Medical Decision Making Medical Decision Making MDM Narrative: 73 yo female with PMH of HTN, HLD, medication controlled. Presents with RLE pain, swelling, and concerns for clot. States there is slight numbness to right lower side of foot. RLE is warm to touch, however negative for redness or streaking. BLE ROM intact and full without difficulty. BLE Strength 5/5. Neuro eval of BLE WNL. On examination she has nonpitting edema of the right lower extremity with warmth to the right knee. No erythema to suggest cellulitis. Lower extremity Doppler was ordered from triage, no evidence of acute DVT but there is a 6.5 cm Jackson's cyst. This can explain her swelling and pain. Patient was placed in Diego wrap for compression and support. Advised to continue Motrin and Tylenol as needed for pain and encourage elevation. She will follow up with her primary care doctor. Stable for discharge home with outpatient follow-up. Differential Diagnosis Differential Diagnoses: The differential diagnosis associated with the presentation includes DVT, cellulitis, jackson's cyst, knee sprain or strain Lab Data MDM Lab Attestation statement: I reviewed the patient's lab results. mild leukopenia 03/31/24 15:09 03/31/24 15:09 Labs: Lab Results 03/31/24 Range/Units 15:09 WBC 4.6 L (4.8-10.8) X10*3/uL RBC 4.43 (4.20-5.50) X10*6/uL Hgb 13.3 (12.0-16.0) g/dl Hct 40.1 (37.0-47.0) % MCV 90.5 (80.0-98.0) fL MCH 30.0 (27.0-33.0) pg MCHC 33.2 (31.0-35.0) g/dl RDW 13.2 (11.0-16.0) % Plt Count 244 (160-400) X10*3/uL MPV 9.0 L (9.4-12.3) fL Immature Gran % (Auto) 0.2 (0.0-0.4) % Neut % (Auto) 52.9 (45-73) % Lymph % (Auto) 35.6 (20-40) % [place] % (Auto) 7.6 (2-11) % Eos % (Auto) 2.8 (0-4) % Baso % (Auto) 0.9 (0-2) % Lymph # (Auto) 1.7 (1.2-4.9) X10*3/uL [place] # (Auto) 0.4 (0.1-1.2) X10*3/uL Eos # (Auto) 0.1 (0.0-0.4) X10*3/uL Baso # (Auto) 0.0 (0.0-0.2) X10*3/uL Abs Immat Gran (auto) 0.01 (0.00-0.03) X10*3/uL Absolute Neuts (auto) 2.5 (2.0-8.3) x10*3/uL Absolute Nucleated RBC 0.000 (0.0-0.012) X10*3/uL Nucleated RBC % (auto) 0.0 (0.0-0.2) /100WBC PT 11.1 (11.1-13.3) SEC INR 0.9 (0.9-1.1) Sodium 143 (135-145) mmol/L Potassium 4.2 (3.3-5.1) mmol/L Chloride 109 H (96-108) mmol/L Carbon Dioxide 27 (22-29) mmol/L Anion Gap 11 L (12-20) BUN 26 H (9-16) mg/dL Creatinine 0.83 (0.5-1.4) mg/dL Estim Creat Clear Calc 61.9 Estimated GFR > 60 Random Glucose 116 H (60-115) mg/dL Calcium 10.3 H D (8.4-10.2) mg/dL Magnesium 2.4 (1.6-2.6) mg/dL Total Bilirubin 0.3 (0.0-1.0) mg/dL AST 15 (5-31) U/L ALT 10 (0-31) U/L Alkaline Phosphatase 87 (39-117) U/L Total Protein 7.5 (6.5-8.0) g/dL Albumin 4.3 (3.5-5.0) g/dL Independent Interpretation I performed an independent interpretation of an: Ultrasound Interpretation: no acute DVT Radiology Impression Discussion of test interpretation with radiology: I have reviewed the radiologist's reading. Independent Historian Clinical information obtained from an independent historian. History obtained from or confirmed by: Spouse External Record Review External record reviewed: Office record, Outpatient record, Prior outpatient labs and Prior outpatient radiology Tests considered The following testing was considered but not selected: arterial studies considered but low suspicion for arterial disease Prescription Management I considered prescription management with: Pain Medication and Other (anticoagulation) Chronic Conditions Patient?s care impacted by: Other (OCD) Procedures Orthopedic Splinting/Casting Injury #1: Side: right Lower Extremity Injury Location: knee Lower Extremity Immobilizer: Diego wrap Critical Care Time Critical Care Time Critical Care Time: No Discharge Plan Discharge Clinical Impression: Jackson cyst Qualifiers: Laterality: right Qualified Code(s): M71.21 - Synovial cyst of popliteal space [Jackson], right knee Patient Disposition: Home, Self-Care Instructions: Bakers Cyst (ED) Additional Instructions: Your ultrasound today did not show any evidence of blood clot. You have a 6-1/2 cm Jakcson's cyst which is causing your symptoms. Recommend compression with Diego wrap and elevation when possible. Take Motrin and Tylenol as needed for pain. Follow-up with your doctor. If you develop new or worsening symptoms call 911 or come back to the ER for further evaluation. EXAMINATION: US TRIPLEX LOWER EXTREMITY, RIGHT CLINICAL INFORMATION: Leg pain and swelling COMPARISON: None available. TECHNIQUE: Color-flow triplex imaging with spectral analysis and compression Doppler were performed on the right lower extremity. FINDINGS: Respiratory variation, normal compression and augmented flow are noted throughout the right lower extremity. The visualized common femoral vein, superficial femoral vein, profunda femoral vein, popliteal vein and midcalf peroneal and posterior tibial venous segments show no evidence of deep venous thrombosis. Jackson cyst measures 6.5 x 2.9 x 2.9 cm US/US venous duplex LE RT IMPRESSION: No evidence of deep venous thrombosis involving the right lower extremity. Prescriptions: No Action gabapentin 100 mg capsule 100 mg PO TID Qty: 90 2RF bupropion HCl 100 mg tablet sustained-release 12 hr 100 mg PO QAM Qty: 30 2RF quetiapine 25 mg tablet 50 mg PO BEDTIME PRN (Reason: for insomnia) Qty: 60 2RF rosuvastatin 40 mg tablet 40 mg PO BEDTIME levothyroxine 25 mcg tablet 25 mcg PO QAM cholecalciferol (vitamin D3) 50 mcg (2,000 unit) tablet 50 mcg PO QAM famotidine 20 mg tablet 20 mg PO BID amlodipine 5 mg tablet PO ONCE fluoxetine 20 mg capsule 80 mg PO QAM Qty: 120 2RF aripiprazole 5 mg tablet 5 mg PO QAM Qty: 30 2RF trazodone 100 mg tablet 150 mg PO BEDTIME Qty: 45 2RF Interventions: ED Discharge Assessment Last Done: 03/31/24 17:15 Discharge Date/Time: 03/31/24 17:15 Print Language: Kazakh
[2024-03-31 17:15] VITALS: BP 154/62; PULSE 70; RESP 16; TEMP 36.7; O2SAT 98
== END 2024-03-31 17:15 | disposition home or self-care (01) ==
PROVIDERS: Physician Assistant; Emergency Provider Emergency Medicine Emergency Medical Services; PCP Internal Medicine
DX: M71.21 Synovial cyst of popliteal space [Baker], right knee (principal); M79.604 Pain in right leg; R60.0 Localized edema; I10 Essential (primary) hypertension; E78.5 Hyperlipidemia, unspecified; Z86.718 Personal history of other venous thrombosis and embolism; Z79.02 Long term (current) use of antithrombotics/antiplatelets
CPT/HCPCS: 36415; 80053; 83735; 85025; 85610; 93971; 99282; 99283; 99284

== ENCOUNTER 2024-04-10 10:32 | Outpatient (AMB) | payer OTHER, SELFPAY ==
--- NOTE | 2024-04-10 10:29 | A.OFFPSYCH_ITS ---
Intake Intake Visit Reasons: depression Networks Computer Consultant Required: No Allergies No Known Allergies Allergy (Verified 03/31/24 14:45) Medication List - Last Reconciled 04/10/[address] APRN amlodipine mg PO ONCE aripiprazole 5 mg PO QAM bupropion HCl SR 100 mg PO QAM cholecalciferol (vitamin D3) 50 mcg PO QAM famotidine 20 mg PO BID fluoxetine 80 mg (4 x 20 mg) PO QAM gabapentin 100 mg PO TID levothyroxine 25 mcg PO QAM quetiapine 50 mg (2 x 25 mg) PO BEDTIME PRN rosuvastatin 40 mg PO BEDTIME trazodone 150 mg (1.5 x 100 mg) PO BEDTIME HPI- Psychiatric Chief Complaint: depression HPI Narrative: symptoms improving; less depressed; more hopeful; less hoarding; willing to talk about getting rid of some things, giving things away, donating things. housing court dismissed her case; she still needs to find a less expensive apartment and one on first floor. she has cyst on back of knee which i causing pain;; she has been seen by ED and walk in clinic; had ultrasound and no DVT. she is more hopeful ; Past Psychiatric History: hx of OCD Hoarding type treated outpatient by Dr Sarmiento in past Subjective Subjective Subjective Medication Compliance: Yes Side effects from medications: No Review of Systems Medical Review of Systems: unchanged Mental Status Exam Mental Status Exam Patient Appearance: Well Grooomed and Appropriate Patient Orientation: Person, Place, Time and Situation Level of Consciousness: Awake and Appropriate Patient Behavior: Appropriate Mood Description: Calm Affect Description: Calm Patient Cognition Impaired: No Ability to Follow Directions: Good Speech Pattern: Clear and Soft-Spoken Memory Description: Intact Hallucinations: None Delusions: Not Present Thought Process: Intact Thought Content: positive for Intact Judgement: Fair Assessment and Plan Assessment & Plan (1) Major depressive disorder, recurrent episode with anxious distress: Status: Acute Code(s): F33.9 - Major depressive disorder, recurrent, unspecified (2) OCD (obsessive compulsive disorder): Status: Acute Qualifiers: Obsessive-compulsive disorder type: hoarding disorder Qualified Code(s): F42.3 - Hoarding disorder Code(s): F42.9 - Obsessive-compulsive disorder, unspecified Plan reduce seroquleand gabapentin as she feels she doesn't need as much as she is less anxious and sleeping better Medications: Changed From quetiapine 50 mg (2 x 25 mg) PO BEDTIME PRN 60 tabs 2RF for insomnia To quetiapine 25 mg PO BEDTIME PRN 30 tabs 2RF for insomnia From gabapentin 100 mg PO TID 90 caps 2RF To gabapentin 100 mg PO BID 60 caps 2RF Refilled bupropion HCl SR 100 mg PO QAM 30 tabs 2RF trazodone 150 mg (1.5 x 100 mg) PO BEDTIME 45 tabs 2RF aripiprazole 5 mg PO QAM 30 tabs 2RF fluoxetine 80 mg (4 x 20 mg) PO QAM 120 caps 2RF Counseling and coordination of Care Pt. Self Management counseling: Maintenance-social rhythm, Mod caffeine/ETOH intake, Sleep hygiene, Behavior activation, Cognitive restructuring and General coping skills Medication management counseling: Effectiveness, Side effects, Dosing range, Duration, Drug interaction and Adherence Diagnosis and Prognosis Counseling: Accuracy of diagnosis, Prognosis over time, Impact of diagnosis on life functions, Problematic behaviors secondary to diagnosis and Adequacy of current interventions Details: I spent 45 minutes reviewing the record, seeing the patient and documenting in the medical record. Counseling provided to the patient/caregiver as outlined below. Addressed patient/caregiver concerns regarding current medication regime including effect mehdi adherence. Addressed patient/caregiver concerns regarding diagnosis and prognosis including accuracy of diagnosis, prognosis over time, impact of diagnosis. Addressed patient/caregiver concerns regarding impact of recent stressors. [facility] Medical History (Updated 04/01/24 @ 00:00 by Zach Boateng) Arthritis Heartburn Depression Hypothyroid HTN (hypertension) Lumbar radiculopathy Sciatica DVT (deep venous thrombosis) Surgical History (Updated 04/05/23 @ 15:30 by ANDREW Borjas) H/O colonoscopy Hx laparoscopic cholecystectomy Hx of cataract extraction Hx of tonsillectomy Hx of section Social History Are you a primary out of school hours care worker to a significant other at home: No Do you presently have visiting nurse or other home services: No Patient Tobacco Use Status: Never used Tobacco Social History: lives alone; has a male friend Substance History: none Trauma History: none known Coding Level of Care Code Est Pt Level 4 (01285) Therapy 30m w/E&M (72447) Diagnoses Major depressive disorder, recurrent episode with anxious distress F33.9 Hoarding disorder F42.3 Obsessive-compulsive disorder type: hoarding disorder
== END 2024-04-10 11:04 | disposition home or self-care (01) ==
LOC: HO.HOP 10:32
PROVIDERS: PCP Internal Medicine; Visit Provider Clinical Nurse Specialist Psychiatric/Mental Health
DX: F33.9 Major depressive disorder, recurrent, unspecified (principal); F42.3 Hoarding disorder
CPT/HCPCS: 90833; 99214

== ENCOUNTER → 2024-04-10 10:32 | Outpatient (BNVA) | payer OTHER, SELFPAY | PROVIDERS: PCP Internal Medicine; Visit Provider Clinical Nurse Specialist Psychiatric/Mental Health | DX: F33.9 Major depressive disorder, recurrent, unspecified (principal); F42.3 Hoarding disorder | CPT/HCPCS: 99212 ==

== ENCOUNTER 2024-06-04 10:51 | Outpatient (AMB) | payer OTHER, SELFPAY ==
--- NOTE | 2024-06-04 11:13 | MHC.OFFVISPS ---
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 Allergies No Known Allergies Allergy (Verified 03/31/24 14:45) Medication List - Last Reconciled 06/04/[address] Berry APRN amlodipine mg PO ONCE aripiprazole 5 mg PO QAM bupropion HCl SR 100 mg PO QAM cholecalciferol (vitamin D3) 50 mcg PO QAM famotidine 20 mg PO BID fluoxetine 80 mg (4 x 20 mg) PO QAM gabapentin 100 mg PO BID levothyroxine 25 mcg PO QAM quetiapine 25 mg PO BEDTIME PRN rosuvastatin 40 mg PO BEDTIME trazodone 150 mg (1.5 x 100 mg) PO BEDTIME HPI- Psychiatric Chief Complaint: depression HPI Narrative: pt struggling with feeling down, more depressed; her friend whom she spends a great deal of time helping has been more neglectful of her needs and often ignores her; she is struggling to set limits; OCD hoarding symptoms are reduced. no SI or HI. Past Psychiatric History: hx of OCD Hoarding type treated outpatient by Dr Sarmiento in past Subjective Subjective Subjective Medication Compliance: Yes Side effects from medications: No Review of Systems Medical Review of Systems: unchanged Mental Status Exam Mental Status Exam Patient Appearance: Well Grooomed and Appropriate Patient Orientation: Person, Place, Time and Situation Level of Consciousness: Awake, Appropriate and Alert Patient Behavior: Appropriate and Good Eye Contact Mood Description: Sad Affect Description: Sad Patient Cognition Impaired: No Ability to Follow Directions: Good Speech Pattern: Clear Memory Description: Intact Hallucinations: None Delusions: Not Present Thought Process: Intact and Rumination Thought Content: positive for Intact and positive for Preoccupation Judgement: Good Assessment and Plan Assessment & Plan (1) Major depressive disorder, recurrent episode with anxious distress: Status: Acute Code(s): F33.9 - Major depressive disorder, recurrent, unspecified (2) OCD (obsessive compulsive disorder): Status: Acute Qualifiers: Obsessive-compulsive disorder type: hoarding disorder Qualified Code(s): F42.3 - Hoarding disorder Code(s): F42.9 - Obsessive-compulsive disorder, unspecified Plan increase wellbutrin to XL 150mg every morning continue gabapentin, abilify, prozac, and trazodone as per below return in 4 weeks Medications: New bupropion HCl XL (Wellbutrin XL) 150 mg PO QAM 30 tabs 2RF multivitamin 1 tab PO QAM 90 tabs 0RF Refilled gabapentin 100 mg PO BID 60 caps 2RF aripiprazole 5 mg PO QAM 30 tabs 2RF fluoxetine 80 mg (4 x 20 mg) PO QAM 120 caps 2RF trazodone 150 mg (1.5 x 100 mg) PO BEDTIME 45 tabs 2RF Discontinued quetiapine Discontinued Reason: Doctor's Order 25 mg PO BEDTIME PRN 30 tabs 2RF for insomnia bupropion HCl SR Discontinued Reason: Doctor's Order 100 mg PO QAM 30 tabs 2RF Counseling and coordination of Care Pt. Self Management counseling: Maintenance-social rhythm, Mod caffeine/ETOH intake, Sleep hygiene, Behavior activation, General coping skills and Problem solving Medication management counseling: Effectiveness, Side effects, Dosing range, Duration, Drug interaction and Adherence Diagnosis and Prognosis Counseling: Accuracy of diagnosis, Prognosis over time, Impact of diagnosis on life functions, Problematic behaviors secondary to diagnosis and Adequacy of current interventions Details: I spent 40 minutes reviewing the record, seeing the patient and documenting in the medical record. Counseling provided to the patient/caregiver as outlined below. Addressed patient/caregiver concerns regarding current medication regime including effective adherence. Addressed patient/caregiver concerns regarding diagnosis and prognosis including accuracy of diagnosis, prognosis over time, impact of diagnosis. Addressed patient/caregiver concerns regarding impact of recent stressors. [facility] Medical History (Updated 04/01/24 @ 00:00 by Zach Boateng) Arthritis Heartburn Depression Hypothyroid HTN (hypertension) Lumbar radiculopathy Sciatica DVT (deep venous thrombosis) Surgical History (Updated 04/05/23 @ 15:30 by ANDREW Borjas) H/O colonoscopy Hx laparoscopic cholecystectomy Hx of cataract extraction Hx of tonsillectomy Hx of section Social History Are you a primary chiropractic care to a significant other at home: No Do you presently have visiting nurse or other home services: No Patient Tobacco Use Status: Never used Tobacco Social History: lives alone; has a male friend Substance History: none Trauma History: none known Coding Level of Care Code Est Pt Level 4 (20899) Therapy 30m w/E&M (76957) Diagnoses Major depressive disorder, recurrent episode with anxious distress F33.9 Hoarding disorder F42.3 Obsessive-compulsive disorder type: hoarding disorder
== END 2024-06-04 11:29 | disposition home or self-care (01) ==
LOC: HO.HOP 10:51
PROVIDERS: PCP Internal Medicine; Visit Provider Clinical Nurse Specialist Psychiatric/Mental Health
DX: F33.9 Major depressive disorder, recurrent, unspecified (principal); F42.3 Hoarding disorder
CPT/HCPCS: 90833; 99214

== ENCOUNTER → 2024-06-04 10:51 | Outpatient (BNVA) | payer OTHER, SELFPAY | PROVIDERS: PCP Internal Medicine; Visit Provider Clinical Nurse Specialist Psychiatric/Mental Health | DX: F42.3 Hoarding disorder (principal); F33.9 Major depressive disorder, recurrent, unspecified; Z71.89 Other specified counseling | CPT/HCPCS: 99212 ==

== ENCOUNTER 2024-07-02 10:54 | Outpatient (AMB) | payer OTHER, SELFPAY ==
--- OUTSIDE RECORDS SUMMARY | 2024-07-02 10:56 | XMS_ITS ---
Author Organization [facility] [place] [address] Care Team Providers Care Gluing Machine Adjuster Name Role Phone Javon Hurt Primary Care Provider Unava ilable Clinical, Operations Unavailable Unavailable REASON FOR VISIT Ht, Wt and BMI VITAL SIGNS Height 64 in 05/13/2023 Weight 161 lbs 05/13/2023 BMI 27.63 kg/m2 05/13/2023 Height-cm 162.56 cm 05/13/2023 Weight-kg 73.03 kg 05/13/2023 Height and weight recorded f gilmar Stokes 03/2023. Encounters Encounter Location Date Provider Diagnosis [facility] [address] [place] [address] 05/13/2023 Operations Clinical PLAN OF TREATMENT No Information
--- OUTSIDE RECORDS SUMMARY | 2024-07-02 10:56 | XMS_ITS | Data Portability ---
Author Organization [employer] [facility] [employer] Address [address] [place] [id number] Care Team Providers Care Network Designer Name Role Phone NEETU ABDULLAHI Primary Care Provider Assessment Encounter Date Assessment Date Assessment LastModified by Organization Details LastModified Time 03/31/2024 03/31/2024 I provided real -time medical direction via phone for this encounter, and was available for additional phone based assistance as needed. I have reviewed and agree with the Assessment and Plan as documented by the Organic Gardening Teacher. We discussed the diagnostic uncertainty of home visits and the risk associated with this. The patient given the opportunity to ask questions. [email or web address] Not available 03/31/2024 14:03:52 Plan of Treatment Reminders Order Date Submit Date Provider Last Modified By Organization Details Last Modified Time Details Appointments None record ed. Lab None record ed. Referral None record ed. Procedures None record ed. Surgeries None record ed. Imaging None record ed. Medication Orders None record ed. Patient TargetsNo targets recorded. Patient InstructionsNo instructions recorded. Reason for Referral None Reported. Medical Equipment None Reported. Medications Name Sig Start Date Stop Date Status Note LastModified by Organization Details LastModified Time quetiapine 25 mg tablet TAKE 2 TABLETS BY MOUTH AT BEDTIME NEEDED active Not Available Not Available No t Available amlodipine 5 mg tablet TAKE 1 AND 1/2 TABLETS DAILY BY MOUTH active Not Available Not Available No t Available bupropion HCl SR 100 mg tablet,12 hr sustained-rele ase TAKE 1 TABLET BY MOUTH EVERY MORNING active Not Available Not Available No t Available levothyroxine 25 mcg tablet TAKE 1 TABLET BY MOUTH EVERY DAY active Not Available Not Available No t Available famotidine 20 mg tablet TAKE 1 TABLET BY MOUTH TWICE A DAY active Not Available Not Available No t Available trazodone 100 mg tablet TAKE 1.5 TABLET BY MOUTH AT BEDTIME active Not Available Not Available No t Available amlodipine 10 mg tablet TAKE 1 TABLET BY MOUTH EVERY DAY active Not Available Not Available No t Available gabapentin 100 mg capsule TAKE 1 CAPSULE BY MOUTH THREE TIMES DAILY active Not Available Not Available No t Available fluoxetine 20 mg capsule TAKE 1 CAPSULE BY MOUTH EVERY MORNING active Not Available Not Available No t Available bupropion HCl SR 200 mg tablet,12 hr sustained-rele ase TAKE 1 TABLET BY MOUTH TWICE A DAY active Not Available Not Available No t Available aripiprazole 5 mg tablet TAKE 1 TABLET BY MOUTH EVERY MORNING active Not Available Not Available No t Available rosuvastatin 40 mg tablet TAKE 1 TABLET BY MOUTH EVERY DAY active Not Available Not Available No t Available Vitamin D3 50 mcg (2,000 unit) tablet TAKE 1 TABLET BY MOUTH EVERY DAY active Not Available Not Available No t Available BinaxNOW COVID-19 Ag Self Test kit TEST DIRECTED TODAY active Not Available Not Available No t Available Vitals Date Recorded Body weight Respiratory rate Heart rate Body height Oxygen saturation Oxygen saturation in Arterial blood by Pulse oximetry Body temperature Systolic blood pressure Diastolic blood pressure Provider Name and Address Organization Details Last Updated DateTime 4 92446.6 4 g 16 /min 82 /min 162.56 cm 98 % 98 % 97.8 [degF] 161 mm[Hg] 72 mm[Hg] Not Available [facility] [employer] 4 13:55:25 Social History None recorded. Functional Status None recorded. Mental Status None recorded. Family History Nothing Reported. Medical History No medical history recorded. Gynecological HistoryNo gynecological history recorded. Obstetrics History GPAL:G 0 P 0 0 0 0 Past Encounters Encounter ID Performer Location Encounter Start Date Encounter Closed Date Diagnosis/Indication Diagnosis SNOMED-CT Code Diagnosis ICD10 Code [id number] Imani Arevalo MD [facility] [address] [place] [id number] 03/31/2024 13:55:15 04/01/2024 14:19:43 Pain in right lower limb 990368479 M79.604 Health Concerns Section Related Observation LastModified by Organization Detai ls LastModified Time None Recorded Concern Status LastModified by Organization Details LastModified Time None Recorded Advance Directives Directive None Recorded Payers Encounter Date Sequence Insurance Name Policy Number Policy Coates Covered Member ID Coates Member ID Guarantor Name 03/31/2024 [facility] - DOS ON OR AFTER 2022 - DUAL ELIGIBLE - LONG-TERM OPTIONS AND ONE CARE (MEDICARE REPLACEMENT/ADV ANTAGE - HMO) Guerita Culp [id number] Guerita Culp Notes Date Note Type Note Provider Name and Address Organization Details Recorded Time 03/31/2024 text/html [facility] Nurse Triage Notes (Bren Larose): Reason For Request: Pt reporting right leg knee swelling for a few weeks>pain from the outside of the leg from the hip to the foot>states her foot is numb most of the time Chief Complaints: Edema PMH: Hypertension, Severe Persistent Mental Illness (SPMI), Other Allergies: No Known Comments: PMH: High Cholesterol Patient reporting right knee swelling with difficulty ambulating. Increased pain and swelling to area with increased difficulty ambulating over the last 2 weeks. Intermittent numbness to lower extremity. Went to walk in clinic on Saturday. Sent home with diana wrap and advised patient to follow up with PCP. No recent falls or acute injuries. No redness or bruising. .................. .................. .................. .................. .................. .................. .................. ............... Organic Gardening Teacher Note From Conor Rosen: Pt reports two weeks of pain in right knee and numbness in her right foot. Pt sts these feelings are the same as when she was told her had a DVT in the right lower leg 1-2 years ago. Pt was started on a blood thinner but is no longer on one. Pt denies CP, SOB, REY, f/n/v/d. Pt went to Saturday, no imaging performed, told she has a cyst and that she should take naproxen. Pt is alert, NAD. VSS. Afebrile. Non focal neuro exam. Lungs CTA. Benign ABD exam. Normal distal pulses, decreased sensation, no erythema or warmth, negative Homen? s sign. Pt advised to go to the ED for imaging. Pt? s friend will drive her to [facility]. .................. .................. .................. .................. .................. .................. .................. ............... Disposition: Fulfilled Imani Arevalo MD [address] [facility] [facility], [place], [phone], OLIVIA MCCARTHY 03/31/2024 23:53:35 OBGyn Episode No OBEpisode recorded.
--- OUTSIDE RECORDS SUMMARY | 2024-07-02 10:56 | XMS_ITS | Patient Health Record ---
Author Organization [facility] [place] [address] Care Team Providers Care Eye Specialist Name Role Phone NargismathewJavon chi Primary Care Provider Unava ilable ALLERGIES No Known Allergies REASON FOR REFERRAL No Information MEDICATIONS Medication SIG (Take, Route, Frequency, Duration) Notes Start Date End Date Status buPROPion HCl ER (SR) 200 MG 1 tablet in the morning Orally BID Active PROzac 20 MG 3 capsules Orally On ce a day Active Abilify 5 MG 1 tablet Orally Once a day Active Levothyroxine Sodium 25 MCG 1 tablet in the morning on an empty stomach Orally Once a day Active amLODIPine Besylate 5 MG 1.5 tablets Ora lly Once a day Active Vitamin D3 50 MCG (1999) 1 capsule Or ally Once a day Active Rosuvastatin Calcium 40 MG 1 tablet Oral ly Once a day Active Gabapentin 100 MG 1 capsule Orally TID Active SEROquel 25 MG 3 tablets at bedtime Orally Once a day Active traZODone HCl 100 MG 1 tablet at bedtime Orally Once a day Active IMMUNIZATIONS Vaccine Route Administration Date Status Comme nts Flu Vac (Fluad) QIV PFS Adjuvanted Unknown 08/17/2021 A dministered Influenza, high dose seasonal Unknown 07/06/2022 Admini stered Influenza, high dose seasonal Unknown 04/12/2023 Admini stered Pfizer-BioNTech COVID-19 Vaccine IM Unknown 10/30/2020 Administered Pfizer-BioNTech COVID-19 Vaccine IM Unknown 11/21/2020 Administered Pfizer-BioNTech COVID-19 Vaccine IM Unknown 08/01/2021 Administered Pfizer-BioNTech COVID-19 Vaccine IM Unknown 08/01/2021 Administered Td Vaccine, 7 Yrs or Older, SDV, IM Unknown 07/01/2018 Administered PROBLEMS Problem Type ICD Code Onset Dates Problem Status W/U Status Risk SNOMED Code Notes Problem Hypertension (I10) Active confirmed Hypertension (48584922) Problem Depression (F32.9) Active confirmed Depression (298508009) Problem Hypothyroid (E03.9) Active confirmed Hypothyroid (81115581) Problem Orthostatic hypotension (I95.1) Active confirmed Orthostatic hypotension (76915031) Problem Hyperlipidemia (E78.5) Active confirmed Hyperlipidemia (00755345) Problem Carpal tunnel syndrome of right wrist (G56.01) Active confirmed Carpal tunnel syndrome of right wrist (820411472299814) Problem Palpitation (R00.2) Active confirmed Palpitations (44770849) Problem Common migraine (G43.009) Active confirmed Common migraine (49855623) PLAN OF TREATMENT No Information Insurance Providers Payer Name Payer Address Payer Phone Subscriber Number Group Number Insured Name Patient Relationship to Insured Coverage Start Date Coverage End Date [facility] [employer] ([id number]) [id number] [facility] [address] [place] [address] [id number] Guerita Culp Self - patient is the insured 4 [phone]
--- NOTE | 2024-07-02 11:26 | A.OFFPSYCH_ITS ---
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 Allergies No Known Allergies Allergy (Verified 03/31/24 14:45) Medication List - Last Reconciled 07/02/[address] Berry APRN amlodipine mg PO ONCE aripiprazole 5 mg PO QAM bupropion HCl XL (Wellbutrin XL) 150 mg PO QAM cholecalciferol (vitamin D3) 50 mcg PO QAM famotidine 20 mg PO BID fluoxetine 80 mg (4 x 20 mg) PO QAM gabapentin 100 mg PO BID levothyroxine 25 mcg PO QAM multivitamin with folic acid 400 mcg (Daily-David (with folic acid)) tabs PO rosuvastatin 40 mg PO BEDTIME trazodone 150 mg (1.5 x 100 mg) PO BEDTIME HPI- Psychiatric Chief Complaint: depression HPI Narrative: pt mood and anxiety improved. she is taking medications as prescribed; no side effects; she is spending time with others; she is focusing on self care. she is less worried about housing and her belongings. she is still looking for an apartment but able t stay where she is for now. PHQ9= 7 GAD7= 5. Pt denies SI or HI Past Psychiatric History: hx of OCD Hoarding type treated outpatient by Dr Sarmiento in past Subjective Subjective Subjective Medication Compliance: Yes Side effects from medications: No Mental Status Exam Mental Status Exam Patient Appearance: Well Grooomed and Appropriate Patient Orientation: Person, Place and Situation Level of Consciousness: Awake and Appropriate Patient Behavior: Appropriate and Cooperative Mood Description: Happy and Anxious Affect Description: Happy and Anxious Patient Cognition Impaired: No Ability to Follow Directions: Good Speech Pattern: Clear and Appropriate Memory Description: Intact Hallucinations: None Delusions: Not Present Thought Process: Intact and Goal Oriented Thought Content: positive for Intact and positive for Goal Oriented Judgement: Good Assessment and Plan Assessment & Plan (1) Major depressive disorder, recurrent episode with anxious distress: Status: Acute Code(s): F33.9 - Major depressive disorder, recurrent, unspecified (2) OCD (obsessive compulsive disorder): Status: Acute Qualifiers: Obsessive-compulsive disorder type: hoarding disorder Qualified Code(s): F42.3 - Hoarding disorder Code(s): F42.9 - Obsessive-compulsive disorder, unspecified Plan continue medications as below return in 2 months Medications: New cholecalciferol (vitamin D3) 50 mcg PO QAM 90 tabs 2RF Refilled fluoxetine 80 mg (4 x 20 mg) PO QAM 120 caps 2RF trazodone 150 mg (1.5 x 100 mg) PO BEDTIME 45 tabs 2RF aripiprazole 5 mg PO QAM 30 tabs 2RF bupropion HCl XL (Wellbutrin XL) 150 mg PO QAM 30 tabs 2RF gabapentin 100 mg PO BID 60 caps 2RF Counseling and coordination of Care Pt. Self Management counseling: Maintenance-social rhythm, Sleep hygiene, Behavior activation, General coping skills and Problem solving Medication management counseling: Effectiveness, Side effects, Dosing range, Duration, Drug interaction and Adherence Diagnosis and Prognosis Counseling: Accuracy of diagnosis, Prognosis over time, Impact of diagnosis on life functions and Adequacy of current interventions Details: I spent 40 minutes reviewing the record, seeing the patient and documenting in the medical record. Counseling provided to the patient/caregiver as outlined below. Addressed patient/caregiver concerns regarding current medication regime including effective adherence. Addressed patient/caregiver concerns regarding diagnosis and prognosis including accuracy of diagnosis, prognosis over time, impact of diagnosis. Addressed patient/caregiver concerns regarding impact of recent stressors. [facility] Medical History (Updated 04/01/24 @ 00:00 by Zach Boateng) Arthritis Heartburn Depression Hypothyroid HTN (hypertension) Lumbar radiculopathy Sciatica DVT (deep venous thrombosis) Surgical History (Updated 04/05/23 @ 15:30 by ANDREW Borjas) H/O colonoscopy Hx laparoscopic cholecystectomy Hx of cataract extraction Hx of tonsillectomy Hx of section Social History Are you a primary progressive care manager to a significant other at home: No Do you presently have visiting nurse or other home services: No Patient Tobacco Use Status: Never used Tobacco Social History: lives alone; has a male friend Substance History: none Trauma History: none known Coding Level of Care Code Est Pt Level 4 (81443) Diagnoses Major depressive disorder, recurrent episode with anxious distress F33.9 Hoarding disorder F42.3 Obsessive-compulsive disorder type: hoarding disorder
== END 2024-07-02 11:39 | disposition home or self-care (01) ==
LOC: HO.HOP 10:54
PROVIDERS: PCP Internal Medicine; Visit Provider Clinical Nurse Specialist Psychiatric/Mental Health
DX: F33.9 Major depressive disorder, recurrent, unspecified (principal); F42.3 Hoarding disorder
CPT/HCPCS: 99214

== ENCOUNTER → 2024-07-02 10:54 | Outpatient (BNVA) | payer OTHER, SELFPAY | PROVIDERS: PCP Internal Medicine; Visit Provider Clinical Nurse Specialist Psychiatric/Mental Health | DX: F33.9 Major depressive disorder, recurrent, unspecified (principal) | CPT/HCPCS: 99212 ==

== ENCOUNTER 2024-10-15 11:11 | Outpatient (AMB) | payer OTHER, SELFPAY ==
--- NOTE | 2024-10-15 11:23 | A.OFFPSYCH_ITS ---
Intake Intake Visit Reasons: depression Job Press Operator Required: No Allergies No Known Allergies Allergy (Verified 03/31/24 14:45) Medication List - Last Reconciled 10/15/[address] Berry APRN amlodipine 10 mg PO DAILY aripiprazole 5 mg PO QAM bupropion HCl SR 100 mg PO QAM cholecalciferol (vitamin D3) 50 mcg PO QAM famotidine 20 mg PO BID fluoxetine 80 mg (4 x 20 mg) PO QAM gabapentin 100 mg PO BID levothyroxine 25 mcg PO QAM multivitamin with folic acid 400 mcg (Daily-David (with folic acid)) tabs PO quetiapine 25 mg PO BEDTIME rosuvastatin 40 mg PO BEDTIME trazodone 150 mg (1.5 x 100 mg) PO BEDTIME HPI- Psychiatric Chief Complaint: depression HPI Narrative: pt struggling after being evicted without notice from apartment; she is now in a nursing home. she is taking meds consistently. PHQ9 = 17 and GAD7= 14. She is working with agencies to get permanent housing; I urged her to contact [facility] [employer] services to see if they can help. Past Psychiatric History: hx of OCD Hoarding type treated outpatient by Dr Sarmiento in past Subjective Subjective Subjective Medication Compliance: Yes Side effects from medications: No Review of Systems Medical Review of Systems: unchanged Mental Status Exam Mental Status Exam Patient Appearance: Well Grooomed and Appropriate Patient Orientation: Person, Place, Time and Situation Level of Consciousness: Awake and Appropriate Patient Behavior: Appropriate Mood Description: Anxious and Sad Affect Description: Anxious and Sad Patient Cognition Impaired: No Ability to Follow Directions: Good Speech Pattern: Clear and Appropriate Memory Description: Intact Hallucinations: None Delusions: Not Present Thought Process: Intact and Distracted Thought Content: positive for Intact Judgement: Good Assessment and Plan Assessment & Plan (1) Major depressive disorder, recurrent episode with anxious distress: Status: Acute Code(s): F33.9 - Major depressive disorder, recurrent, unspecified (2) OCD (obsessive compulsive disorder): Status: Acute Qualifiers: Obsessive-compulsive disorder type: hoarding disorder Qualified Code(s): F42.3 - Hoarding disorder Code(s): F42.9 - Obsessive-compulsive disorder, unspecified Plan take meds as per below return in 4 weeks Medications: New bupropion HCl SR 100 mg PO QAM 30 tabs 2RF quetiapine 25 mg PO BEDTIME 30 tabs 2RF Changed From multivitamin with folic acid 400 mcg PO To multivitamin with folic acid 400 mcg (Daily-David (with folic acid)) 1 tab PO QAM 30 tabs 2RF Refilled cholecalciferol (vitamin D3) 50 mcg PO QAM 90 tabs 2RF gabapentin 100 mg PO BID 60 caps 2RF trazodone 150 mg (1.5 x 100 mg) PO BEDTIME 45 tabs 2RF aripiprazole 5 mg PO QAM 30 tabs 2RF fluoxetine 80 mg (4 x 20 mg) PO QAM 120 caps 2RF Counseling and coordination of Care Pt. Self Management counseling: Maintenance-social rhythm, Mod caffeine/ETOH intake, General coping skills and Problem solving Medication management counseling: Effectiveness, Side effects, Dosing range, Duration, Drug interaction and Adherence Diagnosis and Prognosis Counseling: Accuracy of diagnosis, Prognosis over time, Impact of diagnosis on life functions and Adequacy of current interventions Details: I spent 35 minutes reviewing the record, seeing the patient and documenting in the medical record. Counseling provided to the patient/caregiver as outlined below. Addressed patient/caregiver concerns regarding current medication regime including effective adherence. Addressed patient/caregiver concerns regarding diagnosis and prognosis including accuracy of diagnosis, prognosis over time, impact of diagnosis. Addressed patient/caregiver concerns regarding impact of recent stressors. [facility] Medical History (Updated 04/01/24 @ 00:00 by Zach Boateng) Arthritis Heartburn Depression Hypothyroid HTN (hypertension) Lumbar radiculopathy Sciatica DVT (deep venous thrombosis) Surgical History (Updated 04/05/23 @ 15:30 by ANDREW Borjas) H/O colonoscopy Hx laparoscopic cholecystectomy Hx of cataract extraction Hx of tonsillectomy Hx of section Social History Are you a primary insurance healthcare consultant to a significant other at home: No Do you presently have visiting nurse or other home services: No Patient Tobacco Use Status: Never used Tobacco Social History: lives alone; has a male friend Substance History: none Trauma History: none known Coding Level of Care Code Est Pt Level 4 (00725) Diagnoses Major depressive disorder, recurrent episode with anxious distress F33.9 Hoarding disorder F42.3 Obsessive-compulsive disorder type: hoarding disorder
== END 2024-10-15 11:50 | disposition home or self-care (01) ==
LOC: HO.HOP 11:11
PROVIDERS: PCP Internal Medicine; Visit Provider Clinical Nurse Specialist Psychiatric/Mental Health
DX: F33.9 Major depressive disorder, recurrent, unspecified (principal); F42.3 Hoarding disorder
CPT/HCPCS: 99214

== ENCOUNTER → 2024-10-15 11:11 | Outpatient (BNVA) | payer OTHER, SELFPAY | PROVIDERS: PCP Internal Medicine; Visit Provider Clinical Nurse Specialist Psychiatric/Mental Health | DX: F33.9 Major depressive disorder, recurrent, unspecified (principal); F42.3 Hoarding disorder | CPT/HCPCS: 99212 ==

== ENCOUNTER 2024-12-17 10:09 | Outpatient (AMB) | payer OTHER, SELFPAY ==
--- OUTSIDE RECORDS SUMMARY | 2024-12-17 10:29 | XMS_ITS | Patient Health Record ---
Author Organization [facility] [place] [address] Care Team Providers Care Data Analytics Architect Name Role Phone NargismathewJavon chi Primary Care Provider Unava ilable Allergies No Known Allergies Reason For Referral No Information Medications Medication SIG (Take, Route, Frequency, Duration) Notes [...] at bedtime Orally Once a day Active Immunizations Vaccine Route Administration Date Status Comme nts [...] or Older, SDV, IM Unknown 07/01/2018 Administered Problems Problem Type SNOMED Code ICD Code Onset Dates Problem Status W/U Status Risk Notes Problem Hypertension (77860504) Hypertension (I10) Active confirmed Problem Depression (294412063) Depression (F32.9) Active confirmed Problem Hypothyroid (85264308) Hypothyroid (E03.9) Active confirmed Problem Orthostatic hypotension (88280741) Orthostatic hypotension (I95.1) Active confirmed Problem Hyperlipidemia (58116790) Hyperlipidemia (E78.5) Active confirmed Problem Carpal tunnel syndrome of right wrist (043262988529221) Carpal tunnel syndrome of right wrist (G56.01) Active confirmed Problem Palpitations (80231680) Palpitation (R00.2) Active confirmed Problem Common migraine (68508687) Common migraine (G43.009) Active confirmed Plan Of Treatment No Information Insurance Providers Payer Name Payer Address Payer Phone Subscriber Number Group Number Insured Name Patient Relationship to Insured Coverage Start Date Coverage End Date [facility] ([id number] [facility] [address] [place] [address] [id number] Guerita Culp Self - patient is the insured 4 [phone]
--- NOTE | 2024-12-17 10:44 | A.OFFPSYCH_ITS ---
Intake Intake Visit Reasons: follow up Service Supervisor Required: No Allergies No Known Allergies Allergy (Verified 03/31/24 14:45) Medication List - Last Reconciled 12/17/[address] APRN amlodipine 10 mg PO DAILY aripiprazole 5 mg PO QAM bupropion HCl SR 100 mg PO QAM cholecalciferol (vitamin D3) 50 mcg PO QAM famotidine 20 mg PO BID fluoxetine 80 mg (4 x 20 mg) PO QAM gabapentin 100 mg PO BID levothyroxine 25 mcg PO QAM multivitamin with folic acid 400 mcg (Daily-David (with folic acid)) 1 tab PO QAM quetiapine 25 mg PO BEDTIME rosuvastatin 40 mg PO BEDTIME trazodone 150 mg (1.5 x 100 mg) PO BEDTIME HPI- Psychiatric Chief Complaint: follow up HPI Narrative: pt reports only slight improvement. she had a episode of possible syncope, passing out and was brought to [facility] via [facility]; she says she was in the hospitla for a few days; I don not have those records available today; pt signed releases to obtain records from [facility] and her PCP. She is still in residential and can not find legal help to gether belongings. she never recieeved eviction notice but was told by cafeteria or lunchroom checker that she was evicted and all her belongings put in storage; she spoke to cafeteria or lunchroom checker of storage co and they said they do not have her belongings. she is feeling safer at residential, taking care of her ADLsShe denies SI ro HI. she cotninues to feel depressed and anxious; PHQ9= 13 and GAD7=13 Past Psychiatric History: hx of OCD Hoarding type treated outpatient by Dr Sarmiento in past Subjective Subjective Subjective Medication Compliance: Yes Side effects from medications: No Review of Systems Medical Review of Systems: unchanged Mental Status Exam Mental Status Exam Patient Appearance: Well Grooomed and Appropriate Patient Orientation: Place, Time and Situation Level of Consciousness: Awake and Appropriate Patient Behavior: Appropriate Mood Description: Depressed, Anxious and Sad Affect Description: Constricted, Anxious, Flat and Sad Patient Cognition Impaired: No Ability to Follow Directions: Good Speech Pattern: Clear and Soft-Spoken Memory Description: Intact Hallucinations: None Delusions: Not Present Thought Process: Intact and Goal Oriented Thought Content: positive for Intact and positive for Goal Oriented Judgement: Good Assessment and Plan Assessment & Plan (1) Major depressive disorder, recurrent episode with anxious distress: Status: Acute Code(s): F33.9 - Major depressive disorder, recurrent, unspecified (2) OCD (obsessive compulsive disorder): Status: Acute Qualifiers: Obsessive-compulsive disorder type: hoarding disorder Qualified Code(s): F42.3 - Hoarding disorder Code(s): F42.9 - Obsessive-compulsive disorder, unspecified Medications: Changed From gabapentin 100 mg PO BID 60 caps 2RF To gabapentin 100 mg orally take one in the morning and 3 caps at bedtime; 120 caps 2RF Refilled aripiprazole 5 mg PO QAM 30 tabs 2RF fluoxetine 80 mg (4 x 20 mg) PO QAM 120 caps 2RF cholecalciferol (vitamin D3) 50 mcg PO QAM 90 tabs 2RF multivitamin with folic acid 400 mcg (Daily-David (with folic acid)) 1 tab PO QAM 30 tabs 2RF quetiapine 25 mg PO BEDTIME 30 tabs 2RF trazodone 150 mg (1.5 x 100 mg) PO BEDTIME 45 tabs 2RF Discontinued bupropion HCl SR Discontinued Reason: Doctor's Order 100 mg PO QAM 30 tabs 2RF Counseling and coordination of Care Medication management counseling: Effectiveness, Side effects, Dosing range, Duration, Drug interaction and Adherence Diagnosis and Prognosis Counseling: Accuracy of diagnosis, Prognosis over time, Impact of diagnosis on life functions, Impact of family relationship, Problematic behaviors secondary to diagnosis and Adequacy of current interventions Details: I spent 40 minutes reviewing the record, seeing the patient and documenting in the medical record. Counseling provided to the patient/caregiver as outlined below. Addressed patient/caregiver concerns regarding current medication regime including effective adherence. Addressed patient/caregiver concerns regarding diagnosis and prognosis including accuracy of diagnosis, prognosis over time, impact of diagnosis. Addressed patient/caregiver concerns regarding impact of recent stressors. [facility] Medical History (Updated 04/01/24 @ 00:00 by Zach Boateng) Arthritis Heartburn Depression Hypothyroid HTN (hypertension) Lumbar radiculopathy Sciatica DVT (deep venous thrombosis) Surgical History (Updated 04/05/23 @ 15:30 by ANDREW Borjas) H/O colonoscopy Hx laparoscopic cholecystectomy Hx of cataract extraction Hx of tonsillectomy Hx of section Social History Are you a primary manager home healthcare to a significant other at home: No Do you presently have visiting nurse or other home services: No Patient Tobacco Use Status: Never used Tobacco Social History: lives alone; has a male friend Substance History: none Trauma History: none known Coding Level of Care Code Est Pt Level 4 (60366) Diagnoses Major depressive disorder, recurrent episode with anxious distress F33.9 Hoarding disorder F42.3 Obsessive-compulsive disorder type: hoarding disorder
== END 2024-12-17 10:57 | disposition home or self-care (01) ==
LOC: HO.HOP 10:09
PROVIDERS: PCP Internal Medicine; Visit Provider Clinical Nurse Specialist Psychiatric/Mental Health
DX: F33.9 Major depressive disorder, recurrent, unspecified (principal); F42.3 Hoarding disorder
CPT/HCPCS: 99214

== ENCOUNTER → 2024-12-17 10:09 | Outpatient (BNVA) | payer OTHER, SELFPAY | PROVIDERS: PCP Internal Medicine; Visit Provider Clinical Nurse Specialist Psychiatric/Mental Health | DX: F33.9 Major depressive disorder, recurrent, unspecified (principal); F42.3 Hoarding disorder | CPT/HCPCS: 99212 ==

== ENCOUNTER 2025-01-14 10:18 | Outpatient (AMB) | payer OTHER, SELFPAY ==
--- NOTE | 2025-01-14 10:37 | A.OFFPSYCH_ITS ---
Intake Intake Visit Reasons: follow up Tracer Bullet Section Supervisor Required: No Allergies No Known Allergies Allergy (Verified 03/31/24 14:45) Medication List - Last Reconciled 01/14/[address]Brry APRN amlodipine 10 mg PO DAILY aripiprazole 5 mg PO QAM cholecalciferol (vitamin D3) 50 mcg PO QAM famotidine 20 mg PO BID fluoxetine 80 mg (4 x 20 mg) PO QAM gabapentin 100 mg orally take one in the morning and 3 caps at bedtime; levothyroxine 25 mcg PO QAM multivitamin with folic acid 400 mcg (Daily-David (with folic acid)) 1 tab PO QAM quetiapine 25 mg PO BEDTIME rosuvastatin 40 mg PO BEDTIME trazodone 150 mg (1.5 x 100 mg) PO BEDTIME HPI- Psychiatric Chief Complaint: follow up HPI Narrative: Pt here for follow up re: OCD and Depression. Pt reports improvement; she is sleeping better. Her mood is stable; she is still distressed by not being able to find out where her belongings are from when her landlord evicted her without notice. She was told by the constable that her belongings were at a storage facility but the storage facility said they didn't take anything out of her apartment. She is still staying in a correction. She is starting PT tomorrow for her legs. She has an appt with cardiology and neurolgy after she collapsed in elevator at library, she did not loc . I reviewed notes from her PCP. She had EKG which showed some PACs. she was dehydrated atthe time of the fall. Her lab work sent by PCP was essentially normal with slightly high Blood sugar and slightly high TSH. Pt denies dizziness. Pt denies SI or HI. Pt reports adherence to meds. Past Psychiatric History: hx of OCD Hoarding type treated outpatient by Dr Sarmiento in past Subjective Subjective Subjective Medication Compliance: Yes Side effects from medications: No Review of Systems Medical Review of Systems: unchanged Mental Status Exam Mental Status Exam Patient Appearance: Well Grooomed and Appropriate Patient Orientation: Person, Place, Time and Situation Level of Consciousness: Awake and Appropriate Patient Behavior: Appropriate Mood Description: Calm and Sad Affect Description: Calm, Apathetic and Sad Patient Cognition Impaired: No Ability to Follow Directions: Good Speech Pattern: Clear and Appropriate Memory Description: Intact Hallucinations: None Delusions: Not Present Thought Process: Intact and Goal Oriented Thought Content: positive for Intact and positive for Goal Oriented Judgement: Good Results Reviewed Results Reviewed: review of notes from PCP 11/20/24 Assessment and Plan Assessment & Plan (1) OCD (obsessive compulsive disorder): Status: Acute Qualifiers: Obsessive-compulsive disorder type: hoarding disorder Qualified Code(s): F42.3 - Hoarding disorder Code(s): F42.9 - Obsessive-compulsive disorder, unspecified (2) Major depressive disorder, recurrent episode with anxious distress: Status: Acute Code(s): F33.9 - Major depressive disorder, recurrent, unspecified Medications: Refilled trazodone 150 mg (1.5 x 100 mg) PO BEDTIME 45 tabs 2RF aripiprazole 5 mg PO QAM 30 tabs 2RF fluoxetine 80 mg (4 x 20 mg) PO QAM 120 caps 2RF gabapentin 100 mg orally take one in the morning and 3 caps at bedtime; 120 caps 2RF multivitamin with folic acid 400 mcg (Daily-David (with folic acid)) 1 tab PO QAM 30 tabs 2RF quetiapine 25 mg PO BEDTIME 30 tabs 2RF Counseling and coordination of Care Pt. Self Management counseling: Maintenance-social rhythm, Sleep hygiene, General coping skills and Problem solving Medication management counseling: Effectiveness, Side effects, Dosing range, Duration, Drug interaction and Adherence Diagnosis and Prognosis Counseling: Accuracy of diagnosis, Prognosis over time, Impact of diagnosis on life functions, Impact of family relationship, Problematic behaviors secondary to diagnosis and Adequacy of current interventions Details: I spent 40 minutes reviewing the record, seeing the patient and documenting in the medical record. Counseling provided to the patient/caregiver as outlined below. Addressed patient/caregiver concerns regarding current medication regime including effective adherence. Addressed patient/caregiver concerns regarding diagnosis and prognosis including accuracy of diagnosis, prognosis over time, impact of diagnosis. Addressed patient/caregiver concerns regarding impact of recent stressors. PFSH Medical History (Updated 04/01/24 @ 00:00 by Zach Boateng) Arthritis Heartburn Depression Hypothyroid HTN (hypertension) Lumbar radiculopathy Sciatica DVT (deep venous thrombosis) Surgical History (Updated 04/05/23 @ 15:30 by ANDREW Borjas) H/O colonoscopy Hx laparoscopic cholecystectomy Hx of cataract extraction Hx of tonsillectomy Hx of section Social History Are you a primary rn patient care to a significant other at home: No Do you presently have visiting nurse or other home services: No Patient Tobacco Use Status: Never used Tobacco Social History: lives alone; has a male friend Substance History: none Trauma History: none known Coding Level of Care Code Tele Est Pt Level 4 (81431) Diagnoses Hoarding disorder F42.3 Obsessive-compulsive disorder type: hoarding disorder Major depressive disorder, recurrent episode with anxious distress F33.9
--- OUTSIDE RECORDS SUMMARY | 2025-01-14 11:53 | XMS_ITS | Encounter Summary ---
Author Organization [facility] Address [address] [place] [address] Care Team Providers Care Mycology Teacher Name Role Phone Javon Hurt MD Primary Care Provider [phone] Reason for Visit * Reason Onset Date Comments Results 12/31/2024 Trying reach pat ient . No voice mail is set up. Please transfer call to ext : [phone] thanks. JOE BERNARD Encounter Details Date Type Department Care Team ([facility] Contact Info) Description 12/31/2024 Telephone [facility] [address] [place] [address] Kristine Barber MA Results (Trying reach patient . No voice mail is set up. Please transfer call to ext : [phone] thanks. JOE BERNARD ) Social History Tobacco Use Types Packs/Day Years Used Date Smoking Tobacco: Never Smokeless Tobacco: Never Alcohol Use Standard Drinks/Week Comments No 0 (1 standard drink = 0.6 oz pur e alcohol) Comments No Sex and Gender Information Value Date Recorded Sex Assigned at Not on file Legal Sex Female 10:01 PM EST Gender Identity Not on file Sexual Orientation Not on file documented as of this encounter Plan of Treatment Upcoming Encounters Date Type Department Care Team ([facility] Contact Info) Description 01/15/2025 11:00 AM EDT Evaluation Outpatient Rehabilitation [address] [address] Mendoza Lyles, PT [address] [place] [address] 03/03/2025 1:30 PM EDT Appointment [facility] Endoscopy [address] [place] [phone] Praveen Carson MD [address] [address] 04/22/2025 8:30 AM EDT Office Visit Internal Medicine - [facility] [address] [place] [address] Adore Melendrez NP [address] [place] [address] documented as of this encounter Visit Diagnoses Not on filedocumented in this encounter Additional Health Concerns Assessment Noted Time PHQ-9 Depression Total Score: 0 12/22/19 25 12:00 PM EDT documented as of this encounter Care Teams Mycology Teacher Relationship Specialty Start Date End Date Javon Hurt MD [address] [place] [id number] PCP - General Internal Medicine 05/08/19 documented as of this encounter
== END 2025-01-14 10:55 | disposition home or self-care (01) ==
LOC: HO.HOP 10:18
PROVIDERS: PCP Internal Medicine; Visit Provider Clinical Nurse Specialist Psychiatric/Mental Health
DX: F42.3 Hoarding disorder (principal); F33.9 Major depressive disorder, recurrent, unspecified
CPT/HCPCS: 99214

== ENCOUNTER → 2025-01-14 10:18 | Outpatient (BNVA) | payer OTHER, SELFPAY | PROVIDERS: PCP Internal Medicine; Visit Provider Clinical Nurse Specialist Psychiatric/Mental Health | DX: F42.3 Hoarding disorder (principal); F33.9 Major depressive disorder, recurrent, unspecified | CPT/HCPCS: 99212 ==

== ENCOUNTER 2025-03-18 09:38 | Outpatient (AMB) | payer OTHER, SELFPAY ==
--- OUTSIDE RECORDS SUMMARY | 2025-03-15 10:00 | XMS_ITS | Encounter Summary ---
Author Organization [facility] Address [address] [place] [address] Care Team Providers Care Finishing Area Operator Name Role Phone Javon Hurt MD Primary Care Provider [phone] Reason for Visit * Consultation (Routine) - Authorized Specialty Diagnoses / Procedures Referred By Leona desouza Referred To Contact Physical Therapy Diagnoses Weakness of both legs Adore Melendrez, NIGHT TIME NANNY [address] [place] [address] Phone: tel: fax: Referral ID Status Reason Start Date Expiration Date Visits Requested Visits Authorized [id number] Authorized Specialty Services Required 11/20/2024 11/20/2025 21 21 Encounter Details Date Type Department Care Team ([facility] st Contact Info) Description 03/15/2025 10:00 AM EDT Treatment [address] [address] Pete May PTA Heavy sensation of lower extremity (Primary Dx) Social History Tobacco Use Types Packs/Day Years [...] on file documented as of this encounter Progress Notes * Pete May PTA - 03/15/2025 10:00 AM EDT [facility] - Outpatient PHYSICAL THERAPY DAILY TREATMENT NOTE - OP Date: 03/15/2025 Visit Number: [id number] Patient Name: Guerita Culp DOB: 1950 Age: 74 y.o. Gender: female Diagnosis: No diagnosis found. Date of Onset/Surgery: 11/20/2024 Referring Provider: Adore Melendrez NP Insurance: Payor: [facility] MED[facility] / Plan: [facility] CARE / Product Type: *No Product type* / Patient Identified by: Pete May PTA Language: Sudanese Medications: Current Outpatient Medications on File Prior to Visit Medication Sig Dispense Refill amLODIPine (NORVASC) 10 mg tablet TAKE 1 TABLET(10 MG) BY MOUTH 1 TIME EACH DAY 30 tablet 1 ARIPiprazole (ABILIFY) 5 mg tablet Take 1 Tab by mouth daily for 30 days. bisacodyL (DULCOLAX) 5 mg EC tablet Take 2 tablets by mouth right before beginning bowel prep. See instructions provided by the office 2 tablet 0 buPROPion SR (WELLBUTRIN SR) 200 mg 12 hr tablet Take 1 Tab by mouth 2 times daily. cholecalciferol (VITAMIN D-3) 50 mcg (2,000 unit) tablet Take 1 tablet (2,000 Units total) by mouth1 (one) time each day. 30 tablet 0 ezetimibe (ZETIA) 10 mg tablet Take 1 tablet (10 mg total) by mouth 1 (one) time each day. 90 each 1 famotidine (PEPCID) 20 mg tablet TAKE 1 TABLET(20 MG) BY MOUTH TWICE DAILY 60 tablet 0 FLUoxetine (PROzac) 20 mg capsule Take 3 Caps by mouth daily. gabapentin (NEURONTIN) 100 mg capsule Take 1 Cap by mouth 3 times daily. Take 3 times a day. levothyroxine (SYNTHROID, LEVOTHROID) 25 mcg tablet TAKE 1 TABLET(25 MCG) BY MOUTH 1 TIME EACH DAY 30 tablet 1 magnesium glycinate 100 mg magnesium capsule Take 100 mg (1 capsule total) by mouth 2 (two) times aday. 180 capsule 3 polyethylene glycol (Golytely) 236-22.74-6.74 -5.86 gram solution Take 4L by mouth once for one dose. May substitue any PEG. Starting at 2PM the day before your procedure drink 1 8oz glasses at your own pace until you complete half of the gallon. Finish 2nd half of the gallon at 8PM. 4000 mL 0 QUEtiapine (SEROquel) 25 mg tablet 2-3 qhs rosuvastatin (CRESTOR) 40 mg tablet TAKE 1 TABLET BY MOUTH ONCE DAILY 30 tablet 1 traZODone (DESYREL) 100 mg tablet Take 1 Tab by mouth at bedtime. No current facility-administered medications on file prior to visit. Allergies: has No Known Allergies. Precautions: prediabetic Fall risk: No SUBJECTIVE Subjective Report: pt reports she is still feeling pretty good this monring Chart Reviewed: Yes Pain (R) hip 4/10 OBJECTIVE TREATMENT INTERVENTION: Nu step x 5 min Lateral step up and over 6 in step 2x 10 (B) Shuttle squats 5 cords 3 x 10 Shuttle squats unilateral 4 cords 3 x 10 (B) Up/Down 1 flight stairs done recirically anf with UE support for balance done x 3 Lateral carioca x 3 each direction 10 feet with HOME CARE AND HOME HEALTH AIDES TEACHER (R) Long axis distraction traction with feet on tball 8 min HEP hamstring, hip flexor, hook lying hip add, standing hip abd, ext with band 03/01 bridging and Hip IR added to HEP ASSESSMENT/Response to Treatment Good HOME CARE AND HOME HEALTH AIDES TEACHER with carioca Patient Education: Education provided: Yes Education Provided To: Patient utilizing Explanation mode(s) of education Response to Education: Verbal Understanding PLAN POC Development/Review: No Change in the Plan of Care; Participants: Patient Total Treatment Time: 30 Modalities: Therapeutic procedures: Documentation completed by Pete May PTA documented in this encounter Plan of Treatment Upcoming Encounters Date Type Department Care Team (Late st Contact Info) Description 03/19/2025 10:00 AM EDT Treatment Outpatient Rehabilitation - [address] [phone] Mendoza Lyles, PT [address] [place] [address] 04/22/2025 8:30 AM EDT Office Visit Internal Medicine - [address] [address] Adore Melendrez, NIGHT TIME NANNY [address] [place] [id number] documented as of this encounter Goals Goal Patient Goal Type Associated Problems Recent Progress Patient-Stated? Author feel better General Yes Mendoza Lyles, PT PT STG 8 visits from eval on 01/15/25 General No Mendoza Lyles, PT Note: [x] = goal MET [] = goal NOT met [x] Pt will be able to perform one rep sit to stand without UE support from standard height chair. [] Pt will be able to perform full standard bridge to aid in bed mobility [] Pt will wake <3 x/wk due to Sx [x] pt will improve hip IR strength to 4/5 PT LTG x 16 visits from eval on 01/15/25 General Improving(07/2024 10:56 AM EDT) No Mendoza Lyles PT Note: [x] = goal MET [] = goal NOT MET [] Pt will be able to perform 5 rep sit to stand within 8 sec [] Pt will wake <3 x/wk due to Sx [] Pt will be able to negotiate 1 flight of stairs reciprocally with UE support for balance not and not assist documented as of this encounter Visit Diagnoses Diagnosis Heavy sensation of lower extremity- Primary documented in this encounter Additional Health Concerns Assessment Noted Time PHQ-9 Depression Total Score: 0 12/22/19 25 12:00 PM EDT documented as of this encounter Care Teams Finishing Area Operator Relationship Specialty Start Date End Date Javon Hurt MD [address] [place] [id number] PCP - General Internal Medicine 05/08/19 documented as of this encounter
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
--- OUTSIDE RECORDS SUMMARY | 2025-03-18 10:44 | XMS_ITS | Encounter Summary ---
Author Organization [facility] Address [id number] [place] [id number] Care Team Providers Care Claim Analyst Name Role Phone Javon Hurt MD Primary Care Provider [phone] Reason for Visit * Reason Onset Date Comments Medicare Annual Wellness Visit Subsequent 2024 AWV DUE after 12/30/2024 Encounter Details Date Type Department Care Team (Late st Contact Info) Description 03/17/2025 Telephone Internal Medicine - [facility] [address] [facility] [place] [id number] Didi Carvalho MA Social History Tobacco Use Types Packs/Day Years [...] as of this encounter Progress Notes * Didi Carvalho MA - 03/17/2025 8:59 AM EDT Unable to reach patient in reference to scheduling an Annual Wellness Visit appt w/Amber, Wellness Nurse after 12/30/2024 VM is full. Called Valentino Olsen, friend. Phone number is not in service. Transfer to Didi Carvalho @ [phone]. PT is on the February/2025 report. documented in this encounter Plan of Treatment Upcoming Encounters Date Type Department Care Team (Late Contact Info) Description 03/19/2025 10:00 AM EDT Treatment Outpatient Rehabilitation [address] [phone] Mendoza Lyles, PT [address] [place] [address] 04/22/2025 8:30 AM EDT Office Visit Internal Medicine - [facility] [address] [place], [place] [phone] Adore Melendrez, [employer] [address] [place] [address] documented as of this encounter Goals Goal Patient Goal Type Associated Problems Recent Progress Patient-Stated? Author feel better General Yes Mendoza Lyles, PT PT STG 8 visits from [facility] on 01/15/25 General No Mendoza Lyles PT Note: [x] = [...] 4/5 PT LTG x 16 visits from [facility] on 01/15/25 General Improving(07/2024 10:56 AM EDT) [...] documented as of this encounter Care Teams Claim Analyst Relationship Specialty Start Date End Date Javon Hurt MD [address] [place] [id number] PCP - General Internal Medicine 05/08/19 documented as of this encounter
--- OUTSIDE RECORDS SUMMARY | 2025-03-18 10:44 | XMS_ITS | Clinical Summary ---
Author Organization [place] [address] [address] [facility] Building Address [address] [place] [address] Phone Care Team Providers Care Cloth Printer Name Role Phone Javon Hurt MD Primary Care Provider [phone] Allergies No known active allergies Medications QUEtiapine (SEROquel) 25 mg tablet 2-3 qhs 9 Active traZODone (DESYREL) 100 mg tablet Take 1 Tab by mouth at bedtime. 9 Active buPROPion SR (WELLBUTRIN SR) 200 mg 12 hr tablet Take 1 Tab by mouth 2 times daily. 9 Active FLUoxetine (PROzac) 20 mg capsule Take 3 Caps by mouth daily. 9 Active ARIPiprazole (ABILIFY) 5 mg tablet Take 1 Tab by mouth daily for 30 days. 9 Active gabapentin (NEURONTIN) 100 mg capsule Take 1 Cap by mouth 3 times daily. Take 3 times a day. 9 Active cholecalciferol (VITAMIN D-3) 50 mcg (2,000 unit) tablet Take 1 tablet (2,000 Units total) by mouth 1 (one) time each day. 30 tablet 5 Active amLODIPine (NORVASC) 10 mg tablet TAKE 1 TABLET(10 MG) BY MOUTH 1 TIME EACH DAY 30 tablet 1 5 Active rosuvastatin (CRESTOR) 40 mg tablet TAKE 1 TABLET BY MOUTH ONCE DAILY 30 tablet 1 5 Active levothyroxine (SYNTHROID, LEVOTHROID) 25 mcg tablet TAKE 1 TABLET(25 MCG) BY MOUTH 1 TIME EACH DAY 30 tablet 1 5 Active famotidine (PEPCID) 20 mg tablet TAKE 1 TABLET(20 MG) BY MOUTH TWICE DAILY 60 tablet 5 Active magnesium glycinate 100 mg magnesium capsule Take 100 mg (1 capsule total) by mouth 2 (two) times a day. 180 capsule 3 5 Active ezetimibe (ZETIA) 10 mg tablet Take 1 tablet (10 mg total) by mouth 1 (one) time each day. 90 each 1 5 06/15/20 26 Active polyethylene glycol (Golytely) 236-22.74-6.74 -5.86 gram solution Take 4L by mouth once for one dose. May substitue any PEG. Starting at 2PM the day before your procedure drink 1 8oz glasses at your own pace until you complete half of the gallon. Finish 2nd half of the gallon at 8PM. 4000 mL 5 Active bisacodyL (DULCOLAX) 5 mg EC tablet Take 2 tablets by mouth right before beginning bowel prep. See instructions provided by the office 2 tablet 5 Active Active Problems Problem Noted Date Diagnosed Date Obesity, morbid (CMS/HCC V24, CMS/HCC V28) 12/21 Prediabetes 11/20/2024 Carpal tunnel syndrome on right 09/07/2015 Overview (05/27/2024): [facility] Depression 11/17/2009 Overview (05/27/2024): Dr. Dean Nelson; [address], [place] Hypothyroid 06/24/2008 Orthostatic hypotension 02/24/2007 Migraine without aura 10/19/2005 Overview (05/27/2024): IMO update Hyperlipidemia 10/19/2005 Hypertension 10/19/2005 Overview (05/27/2024): 24 hr monitor - confirms elevated (not white coat) - amlodipine increased to 7.[address] Kamara (end April) Palpitations 10/19/2005 Syncope and collapse 10/19/2005 Encounters Date Type Department Care Team Description 03/17/2025 Telephone Internal Medicine - [address] [phone] Didi Carvalho [place] 03/15/2025 10:00 AM EDT Treatment Outpatient Rehabilitation - [address] [phone] Pete May, DRYWALL SANDER Heavy sensation of lower extremity (Primary Dx) 03/12/2025 11:30 AM EDT Treatment Outpatient Rehabilitation - [address] [phone] Pete May, DRYWALL SANDER Heavy sensation of lower extremity (Primary Dx) 03/01/2025 10:30 AM EDT Treatment Outpatient Rehabilitation - [address] [phone] Pete May, DRYWALL SANDER Heavy sensation of lower extremity (Primary Dx) 02/26/2025 11:00 AM EDT Treatment Outpatient Rehabilitation - [address] [phone] Pete May, DRYWALL SANDER Heavy sensation of lower extremity (Primary Dx) 02/26/2025 Telephone Internal Medicine - [address] [phone] Amber Landry RN 02/22/2025 10:45 AM EDT Treatment Outpatient Rehabilitation - [address] [phone] Pete May, DRYWALL SANDER Heavy sensation of lower extremity (Primary Dx) 02/19/2025 10:00 AM EDT Treatment Outpatient Rehabilitation - [address] [phone] Mendoza Lyles, PT Heavy sensation of lower extremity (Primary Dx) 02/15/2025 10:00 AM EDT Treatment Outpatient Rehabilitation - [address] [phone] Pete May, DRYWALL SANDER Heavy sensation of lower extremity (Primary Dx) 02/12/2025 10:00 AM EDT Treatment Outpatient Rehabilitation - [address] [phone] Mendoza Lyles, PT Heavy sensation of lower extremity (Primary Dx) 02/08/2025 10:00 AM EDT Treatment Outpatient Rehabilitation - [address] [phone] Pete May, DRYWALL SANDER Heavy sensation of lower extremity (Primary Dx) 02/05/2025 10:00 AM EDT Treatment Outpatient Rehabilitation - [address] [phone] Pete May, DRYWALL SANDER Heavy sensation of lower extremity (Primary Dx) 02/01/2025 10:00 AM EDT Treatment Outpatient Rehabilitation - [address] [phone] Pete May, DRYWALL SANDER Heavy sensation of lower extremity (Primary Dx) 01/29/2025 10:00 AM EDT Treatment Outpatient Rehabilitation - [address] [phone] Pete May, DRYWALL SANDER Heavy sensation of lower extremity (Primary Dx) 01/25/2025 10:00 AM EDT Treatment Outpatient Rehabilitation - [address] [phone] Pete May, DRYWALL SANDER Heavy sensation of lower extremity (Primary Dx) 01/15/2025 11:00 AM EDT Evaluation Outpatient Rehabilitation - [address] [phone] Mendoza Lyles, PT Heavy sensation of lower extremity (Primary Dx) 12/31/2024 Telephone Internal Medicine - [address] [phone] Kristine Barber [place] 12/30/2024 9:00 AM EDT - 12/30/2024 11:59 PM EDT Hospital Encounter CT Scan - [address] [place] [address] Syncope and collapse Discharge Disposition: Home or Self Care 12/28/2024 Telephone Gastroenterology - [address] [place] [address] Jaun Estrada MD 12/21/2024 11:35 AM EDT Lab Draw Station - [address] Screening for metabolic disorder; Mixed hyperlipidemia; Primary hypertension; Hypothyroidism, unspecified type 12/21/2024 11:15 AM EDT Office Visit Internal Medicine - [address] [phone] Adore Melendrez NP Obesity, morbid (CMS/HCC V24, CMS/HCC V28) (Primary Dx); Screening for metabolic disorder; Syncope and collapse; Primary hypertension; Orthostatic hypotension; Palpitations; Mixed hyperlipidemia; Hypothyroidism, unspecified type; Prediabetes; Depression, unspecified depression type; 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; Colon cancer screening; Osteoporosis screening; Encounter for screening mammogram for malignant neoplasm of breast 12/21/2024 Telephone Internal Medicine - [address] [phone] Javon Hurt MD from Last 3 Months Immunizations Name Administration Dates Next Due Influenza trivalent, 0.5mL ( Fluad) 65yo and older 04/12/2023,07/06/2022,06/03/2019,04/30 Influenza trivalent, 0.5mL, preservative free (Fluarix; FluLaval; Fluzone) ages 6mo and older (Afluria) 3 years and older 05/28/2016,06/18/2012,06/23/2008 Influenza, Unspecified 03/21/2020 Pneumococcal conjugate 13 va lent (Prevnar 13, PCV13) 2mo and older 11/07/2015 Pneumococcal polysaccharide 23 valent (Pneumovax 23) 2yo and older 04/30/2017 Td Tetanus diptheria (Tdvax) 7yo and older 07/01/2018 Tdap Tetanus diptheria acell ular pertussis (Boostrix; Adacel) 7yo and older 06/23/2008 Surgical History Surgery Date Site/Laterality Comments CHOLECYSTECTOMY 04/23 PROCEDURE: HISTORICAL CHOLECYSTECTOMY; COMMENT: Leo simmons SECTION PROCEDURE: HISTORICAL DELIVERY COLONOSCOPY 04/23 PROCEDURE: HISTORICAL COLONOSCOPY; COMMENT: Jonathan; troy OTHER SURGICAL HISTORY 08/06/13 PROCEDURE: COLON CA SCRN NOT HI RSK IND; COMMENT: normal; repeat in ten yrs Medical History Medical History Date Comments Essential hypertension, benign 10/19/2005 D X:Essential hypertension, benign Syncope and collapse 10/19/2005 DX:Syncope and collapse Other and unspecified hyperlipidemia 10/19/2005 DX:Other and unspecified hyperlipidemia Migraine without aura, witho ut mention of intractable migraine without mention of status migrainosus 10/19/2005 DX:Migraine with out aura, without mention of intractable migraine without mention of status migrainosus Palpitations 10/19/2005 DX:Palpitations Hypothyroid 06/24/2008 DX:Hypothyroid Depression 11/17/2009 DX:Depression Polyneuropathy DX:Polyneuropath y Family History Medical History Relation Name Comments No Known Problems Brother No Known Problems Daughter Hypertension Father alzheimers Lung cancer Mother No Known Problems Sister No Known Problems Son Coronary artery disease Uncle Breast cancer Neg Hx Colon cancer Neg Hx Ovarian cancer Neg Hx Relation Name Status Comments Brother Daughter Alive Father Mother Sister Son Alive Uncle Social History Tobacco Use Types Packs/Day Years Used Date Smoking Tobacco: Never Smokeless Tobacco: Never Tobacco Cessation:Counseling Given: Not Answered Alcohol Use Standard Drinks/Week Comments No 0 (1 standard drink = 0.6 oz pur e alcohol) Comments No Sex and Gender Information Value Date Recorded Sex Assigned at Not on file Legal Sex Female 10:01 PM EST Gender Identity Not on file Sexual Orientation Not on file Obstetrics History Last Filed Vital Signs Vital Sign Reading Time Taken Comments Blood Pressure 123/64 12/21/2024 10:56 AM EDT Pulse 70 12/21/2024 10:56 AM EDT auto cuff Temperature 36.6 C (97.8 F) 12/21/2024 10:56 AM EDT Respiratory Rate - - Oxygen Saturation - - Inhaled Oxygen Concentration - - Weight 80.2 kg (176 lb 14.4 oz) 025 10:56 AM EDT Height 162.6 cm (5' 4 ) 10/23/2023 1:12 PM EDT Body Mass Index 30.36 10/23/2023 1:12 PM EDT Plan of Treatment Upcoming Encounters Date Type Department Care Team (Late st Contact Info) Description 03/19/2025 10:00 AM EDT Treatment Outpatient Rehabilitation - [place] [address] [place], [place] [phone] Mendoza Lyles, PT [address] [place] [address] 04/22/2025 8:30 AM EDT Office Visit Internal Medicine - [facility] [address] [place], [place] [phone] Adore Melendrez, CHIEF PSYCHOLOGIST [address] [place] [address] Health Maintenance Due Date Last Done Comments Zoster Vaccines (1 of 2) 1969 Cervical Cancer Screening: Pap Smear 09/17/2018 09/17/2017, 09/17/2017, 09/17/2017, Additional history exists Colorectal Cancer Screening: Colonoscopy 06/30/2022 Medicare Annual Wellness Visit 06/30/2022 Social Influencers of Health Screening 06/30/2022 COVID-19 Vaccine ( season) 2024 08/01/2021, 11/21/2020, 10/30/2020 Breast Cancer Screening 10/30/2024 10/31/19 23, 08/17/2020, 08/11/2019, Additional history exists Influenza Vaccine (#1) 2025 3, 07/06/2022, 08/17/2021, Additional history exists RSV Immunization Adult Patients (1 - 1-dose 75+ series) 2025 Falls Risk Assessment 12/21/2025 12/21/2024 Hypertension/CHF/CAD Annual BMP Blood Test 12/21/2025 12/21/2024, 11/20/2024, 10/23/2023 DTaP,Tdap,and Td Vaccines (3 - Td or Tdap) 07/01/2028 07/01/2018, 06/23/2008 Cholesterol Screening (Lipid Panel) 12/21/2029 12/21/2024, 04/12/2023 Osteoporosis Screening (Bone Density Screening) 10/30/2032 10/30/2022 Hepatitis C Screening Completed 09/01/2012 Pneumococcal Vaccine: 50+ Years Completed 04/30/2017, 11/07/2015 Depression Screening Completed 12/21/2024, 12/31/19 24 HIB Vaccines Aged Out No longer eligi ble based on patient's age to complete this topic HPV Vaccines Aged Out No longer eligi ble based on patient's age to complete this topic Hepatitis A Vaccines Aged Out No long er eligible based on patient's age to complete this topic Hepatitis B Vaccines Aged Out No long er eligible based on patient's age to complete this topic IPV Vaccines Aged Out No longer eligi ble based on patient's age to complete this topic MMR Vaccines Aged Out No longer eligi ble based on patient's age to complete this topic Meningococcal ACWY Vaccine Aged Out N o longer eligible based on patient's age to complete this topic Meningococcal B Vaccine Aged Out No l onger eligible based on patient's age to complete this topic RSV Immunization Patients Under 20 months Aged Out No longer eligible based on patient's age to complete this topic Varicella Vaccines Aged Out No longer eligible based on patient's age to complete this topic Goals Goal Patient Goal Type Associated Problems Recent Progress Patient-Stated? Author feel better General Yes Mendoza Lyles, PT PT STG 8 visits from [facility] on 01/15/25 General No Mendoza Lyles, PT [...] 4/5 PT LTG x 16 visits from [facility] on 01/15/25 General Improving(07/2024 10:56 AM EDT) No Mendoza Lyles, PT Note: [x] = goal MET [] = goal NOT MET [] Pt will be able to perform 5 rep sit to stand within 8 sec [] Pt will wake <3 x/wk due to Sx [] Pt will be able to negotiate 1 flight of stairs reciprocally with UE support for balance not and not assist Procedures Procedure Name Priority Date/Time Associated Diagnosis Comments CT HEAD WO CONTRAST Routine 12/30/2024 9 :31 AM EDT Syncope and collapse THYROID STIMULATING HORMONE WITH REFLEX TO FREE T4 AND FREE T3 Routine 12/21/2024 11:51 AM EDT Hypothyroidism, unspecified type FOLATE Routine 12/21/2024 11:51 AM EDT Screening for metabolic disorder COMPREHENSIVE METABOLIC PANEL Routine 12/21/2024 11:51 AM EDT Screening for metabolic disorder MICROALBUMIN CREATININE URINE RATIO Routine 12/21/2024 11:51 AM EDT Screening for metabolic disorder Primary hypertension LIPID PANEL WITH REFLEX TO DIRECT LDL Routine 12/21/2024 11:51 AM EDT Screening for metabolic disorder Mixed hyperlipidemia DEPRESSION SCREENING Routine 12/31/2023 SCREENING MAMMOGRAPHY BI 2-VIEW BREAST INC CAD Routine 10/30/2022 3:31 PM EDT Encounter for screening mammogram for malignant neoplasm of breast DXA BONE DENSITY STUDY 1+ SITS AXIAL SKEL Routine 10/30/2022 3:11 PM EDT Encounter for screening for osteoporosis PAP SMEAR Routine 09/17/2017 HEPATITIS C SCREENING Routine 09/01/2012 from Last 3 Months or Most Recently Relevant to Health Maintenance Results * CT Head wo Contrast (12/30/2024 9:31 AM EDT) Anatomical Region Laterality Modality Head and Neck Computed Tomogra phy 12/30/2024 10:3 7 AM EDT Impressions 12/30/2024 10:43 AM EDT 1. No acute intracranial abnormality. 2. Diffuse cortical volume loss and nonspecific white matter disease, commonly associated with chronic microangiopathy. 3. Atherosclerosis. 4. Empty sella. -------- FINAL REPORT -------- Dictated By: Cece Shaver Dictated Date: 12/30/2024 10:37 ET Assigned Physician: Cece Shaver Reviewed and Electronically Signed By: Cece Shaver Signed Date: 12/30/2024 10:43 ET Workstation ID: [id number] Transcribed By: Self Edit Transcribed Date: 12/30/2024 10:37 ET Narrative 12/30/2024 10:[address] HEAD WO CONTRAST History: Recurrent syncope. Technique: Contiguous axial images were obtained from the skull base to the vertex without the administration of intravenous contrast. Prior studies: None. FINDINGS: There is no acute intracranial hemorrhage. The carpio/white matter differentiation is preserved. There is diffuse cortical volume loss. There are patchy and confluent areas of hypodensity in the periventricular, deep, and subcortical white matter. The ventricles and sulci are symmetric. The basal cisterns are patent. There is no mass effect or midline shift. There are no intra or extra-axial fluid collections identified. Atherosclerotic calcifications are seen in the intracranial arteries. No skull fractures are seen. The visualized paranasal sinuses and mastoid air cells are clear. There is no abnormality at the foramen magnum. There is empty sella. Procedure Note Cece Shaver MD - 12/30/2024 CT HEAD WO CONTRAST History: Recurrent syncope. Technique: Contiguous axial images were obtained from the skull base tothe vertex without the administration of intravenous contrast. Prior studies: None. FINDINGS: There is no acute intracranial hemorrhage. The carpio/white matterdifferentiation is preserved. There is diffuse cortical volume loss. Thereare patchy and confluent areas of hypodensity in the periventricular,deep, and subcortical white matter. The ventricles and sulci aresymmetric. The basal cisterns are patent. There is no mass effect ormidline shift. There are no intra or extra-axial fluid collectionsidentified. Atherosclerotic calcifications are seen in the intracranialarteries. No skull fractures are seen. The visualized paranasal sinuses and mastoidair cells are clear. There is no abnormality at the foramen magnum. There is empty sella. IMPRESSION: 1. No acute intracranial abnormality. 2. Diffuse cortical volume loss and nonspecific white matter disease,commonly associated with chronic microangiopathy. 3. Atherosclerosis. 4. Empty sella. -------- FINAL REPORT -------- Dictated By: Cece Shaver Dictated Date: 12/30/2024 10:37 ET Assigned Physician: Cece Shaver Reviewed and Electronically Signed By: Cece Shaver Signed Date: 12/30/2024 10:43 ET Workstation ID: [id number] Transcribed By: Self Edit Transcribed Date: 12/30/2024 10:37 ET us Adore Juárez CHIEF PSYCHOLOGIST IMG CT PROCEDURES Final Resu lt * Thyroid stimulating hormone with reflex to free t4 and free t3 (12/21/2024 11:51 AM EDT) TSH 2.36 0.40 - 4.00 mcIU/mL LAB CHEMISTRY METHOD 12/21/2024 4:51 PM EDT [facility] Blood Venous blood specimen / Unknown Venipuncture / Unknown 12/21/2024 11:51 AM EDT 12/21/2024 11:51 AM EDT us Adore Juárez CHIEF PSYCHOLOGIST LAB BLOOD ORDERABLES Final R esult [facility] [address] [place] [address], * (ABNORMAL) Lipid panel with reflex to direct LDL (12/21/2024 11:51 AM EDT) Cholesterol 223(H) 0 - 200 mg/dL LAB CHEMISTRY METHOD 12/21/2024 4:49 PM EDT [facility] Triglycerides 141 0 - 150 mg/dL LAB CHEMISTRY METHOD 12/21/2024 4:49 PM EDT [facility] HDL 58 >=40 mg/dL LAB CHEMISTRY METHOD 12/21/2024 4:49 PM EDT [facility] LDL Calculated 137(H) 0 - 100 mg/dL LAB CHEMISTRY METHOD 12/21/2024 4:49 PM EDT [facility] VLDL Cholesterol Flaco 28.2 mg/dL LAB CHEMISTRY METHOD 12/21/2024 4:49 PM EDT [facility] Non HDL Chol. (LDL+VLDL) 165(H) <145 mg/dL LAB CHEMISTRY METHOD 12/21/2024 4:49 PM EDT [facility] Chol/HDL Ratio 3.8 0.0 - 4.4 LAB CHEMISTRY METHOD 12/21/2024 4:49 PM EDT [facility] Blood Venous blood specimen / Unknown Venipuncture / Unknown 12/21/2024 11:51 AM EDT 12/21/2024 11:51 AM EDT us Adore Juárez CHIEF PSYCHOLOGIST LAB BLOOD ORDERABLES Final R esult [facility] [address] [place] [address], * Microalbumin creatinine urine ratio (12/21/2024 11:51 AM EDT) Creatinine, Urine 228.0 mg/dL LAB CHEMISTRY METHOD 12/21/2024 5:17 PM EDT [facility] Microalb, Ur 14.6 0.0 - 29.0 mg/L LAB CHEMISTRY METHOD 12/21/2024 5:17 PM EDT [facility] Microalb/Creat Ratio 6 <30 mg/g creat LAB CHEMISTRY METHOD 12/21/2024 5:17 PM T [facility] Urine Urine specimen obtained by clean catch procedure / Unknown Non-blood Collection / Unknown 12/21/2024 11:51 AM EDT 12/21/2024 11:51 AM EDT Adore Juárez CHIEF PSYCHOLOGIST LAB URINE ORDERABLES Final R esult Performing Organization Address City/[facility]/ZIP Co de Phone Number [facility] [address] [place] [address], [place] [phone] * (ABNORMAL) Folate (12/21/2024 11:51 AM EDT) Pathologist [facility] Folate 17.7(H) 2.8 - 17.0 ng/ml LAB CHEMISTRY METHOD 12/21/2024 4:49 PM EDT [facility] Blood Venous blood specimen / Unknown Venipuncture / Unknown 12/21/2024 11:51 AM EDT 12/21/2024 11:51 AM EDT Adore Juárez CHIEF PSYCHOLOGIST LAB BLOOD ORDERABLES Final R esult Performing Organization Address [facility] Co de Phone Number [facility] [address] [place] [address], [place] [phone] * (ABNORMAL) Comprehensive metabolic panel (12/21/2024 11:51 AM EDT) [facility] Sodium 142 133 - 145 mmol/L LAB CHEMISTRY METHOD 12/21/2024 4:49 PM EDT [facility] Potassium 4.7 3.5 - 5.5 mmol/L LAB CHEMISTRY METHOD 12/21/2024 4:49 PM EDT [facility] Comment:Hemolysis present Chloride 108 96 - 110 mmol/L LAB CHEMISTRY METHOD 12/21/2024 4:49 PM EDT [facility] CO2 28 21 - 32 mmol/L LAB CHEMISTRY METHOD 12/21/2024 4:49 PM EDT [facility] Anion Gap 6 3 - 11 LAB CHEMISTRY METHOD 12/21/2024 4:49 PM EDT [facility] Glucose 100 70 - 100 mg/dL LAB CHEMISTRY METHOD 12/21/2024 4:49 PM EDT [facility] BUN 20 5 - 25 mg/dL LAB CHEMISTRY METHOD 12/21/2024 4:49 PM [facility] Creatinine 1.09 0.50 - 1.10 mg/dL LAB CHEMISTRY METHOD 12/21/2024 4:49 PM [facility] eGFR 53(L) >=60 mL/min/1. 73m2 LAB CHEMISTRY METHOD 12/21/2024 4:49 PM [facility] Comment:Calculation based on the Chronic Kidney Disease Epidemiology Collaboration (CKD-EPI) equation refit without adjustment for race. BUN/Creatinine Ratio 18.3 LAB CHEMISTRY METHOD 12/21/2024 4:49 PM [facility] Calcium 8.8 8.5 - 10.5 mg/dL LAB CHEMISTRY METHOD 12/21/2024 4:49 PM [facility] AST (SGOT) 30 10 - 42 unit/L LAB CHEMISTRY METHOD 12/21/2024 4:49 PM [facility] ALT (SGPT) 24 10 - 60 unit/L LAB CHEMISTRY METHOD 12/21/2024 4:49 PM [facility] Alkaline Phosphatase 95 42 - 121 unit/L LAB CHEMISTRY METHOD 12/21/2024 4:49 PM [facility] Total Protein 6.7 6.0 - 8.0 g/dL LAB CHEMISTRY METHOD 12/21/2024 4:49 PM [facility] Albumin 3.5 3.2 - 5.0 g/dL LAB CHEMISTRY METHOD 12/21/2024 4:49 PM [facility] Total Bilirubin 0.5 0.0 - 1.4 mg/dL LAB CHEMISTRY METHOD 12/21/2024 4:49 PM [facility] Blood Venous blood specimen / Unknown Venipuncture / Unknown 12/21/2024 11:51 AM EDT 12/21/2024 11:51 AM EDT us Adore Juárez CHIEF PSYCHOLOGIST LAB BLOOD ORDERABLES Final R esult [facility] [address] [place] [address], [place] [phone] * Depression Screening (12/31/2023) Depression Screening abstracted Historical Provider HEALTH MAINTENANCE Final Result * SCREENING MAMMOGRAPHY BI 2-VIEW BREAST INC CAD (10/30/2022 3:31 PM EDT) Anatomical Region Laterality Modality Radiographic Falguni ging 07/06/2022 9:10 AM EST Narrative 10/31/2022 9:13 AM EDT This is a summary report. The complete report is available in the patient's medical record. If you cannot access the medical record, please contact the sending organization for a detailed fax or copy. Exam: Screening mammogram Findings: Digital bilateral full-field screening mammography is performed with tomosynthesis and interpreted with the aid of computer-aided detection. Comparison is made with 08/17/2020 and as far back as 06/16/2018. Breast parenchyma is composed of scattered fibroglandular densities. No new suspicious mass, architectural distortion, or suspicious calcifications. Impression: No mammographic evidence of malignancy. BI-RADS 1 - negative Procedure Note Pia Enriquez MD - 08/27/2023 This is a summary report. The complete report is available in thepatient's medical record. If you cannot access the medical record, pleasecontact the sending organization for a detailed fax or copy. Exam: Screening mammogram Findings: Digital bilateral full-field screening mammography is performedwith tomosynthesis and interpreted with the aid of computer-aideddetection. Comparison is made with 08/17/2020 and as far back as108/16/2017. Breast parenchyma is composed of scattered fibroglandular densities. Nonew suspicious mass, architectural distortion, or suspiciouscalcifications. Impression: No mammographic evidence of malignancy. BI-RADS 1 - negative Javon Hurt MD IMG XR PROCEDURES Final R esult * DXA BONE DENSITY STUDY 1+ KINGSLEY AXIAL SKEL (10/30/2022 3:11 PM EDT) Anatomical Region Laterality Modality Bone Densitometr y 07/06/2022 9:10 AM EST Narrative 10/30/2022 5:28 PM EDT BONE DENSITY Lumbar Spine T-score is +0.1 (SD relative to 20-29 y/o adult) Z-score is +2.3 (SD relative to age matched peers) This is normal by criteria defined by the WHO. Left Hip T-score is -0.8 Z-score is +1.1 This is normal by criteria defined by the WHO. Impression: Based on the World Health Organization criteria, Guerita Culp should be classified as having normal bone density. The [facility] Department of Internal Medicine recommends using National Osteoporosis Foundation (NOF) guidelines in treatment decisions related to osteoporosis. NOF guidelines suggest considering treatment for postmenopausal women and men aged 50 or older presenting with the following: History of hip or vertebral fracture. T-score less than or equal to -2.5 (DXA) at the femoral neck, total hip, or spine, after appropriate evaluation to exclude secondary causes. Low bone mass (T-score between -1.0 and -2.5 at the femoral neck or spine) AND a 10-year probability of a hip fracture greater than or equal to 3% OR a 10-year probability of a major osteoporosis-related fracture greater than or equal to 20% based on the [place]-adapted WHO algorithm Please note that all treatment decisions require clinical judgment and consideration of individual patient factors, including patient preferences, co-morbidities, previous drug use, risk factors not captured in the FRAX model (e.g., frailty, falls, vitamin D deficiency, increased bone turnover, interval significant decline in bone density) and possible under- or over-estimation of fracture risk by FRAX. Procedure Note Maria Teresa Francis MD - 08/27/2023 BONE DENSITY Lumbar Spine T-score is +0.1 (SD relative to 20-29 y/o adult) Z-score is +2.3 (SD relative to age matched peers) This is normal by criteria defined by the WHO. Left Hip T-score is -0.8 Z-score is +1.1 This is normal by criteria defined by the WHO. Impression: Based on the World Health Organization criteria, Guerita Culp should beclassified as having normal bone density. The [facility] Department of Internal Medicine recommendsusing National Osteoporosis Foundation (NOF) guidelines in treatmentdecisions related to osteoporosis. NOF guidelines suggest consideringtreatment for postmenopausal women and men aged 50 or older presentingwith the following: History of hip or vertebral fracture. T-score less than or equal to -2.5 (DXA) at the femoral neck, total hip,or spine, after appropriate evaluation to exclude secondary causes. Low bone mass (T-score between -1.0 and -2.5 at the femoral neck or spine)AND a 10-year probability of a hip fracture greater than or equal to 3% ORa 10-year probability of a major osteoporosis-related fracture greaterthan or equal to 20% based on the US-adapted WHO algorithm Please note that all treatment decisions require clinical judgment andconsideration of individual patient factors, including patientpreferences, co-morbidities, previous drug use, risk factors not capturedin the FRAX model (e.g., frailty, falls, vitamin D deficiency, increasedbone turnover, interval significant decline in bone density) and possibleunder- or over-estimation of fracture risk by FRAX. Javon Hurt MD IM DXA PROCEDURES Final Result * Pap smear (09/17/2017) 09/17/2017 Narrative HISTORICAL TESTING LAB RESULTING AGENCY - 09/19/2017 1:40 PM EST [id number] THINPREP PAP, IMAGED: NEGATIVE FOR SQUAMOUS INTRAEPITHELIAL LESION AND MALIGNANCY . ATROPHY. RESULT OF APTIMA HIGH RISK HPV ASSAY: NEGATIVE (SEROTYPES 16,18,31,33,35,39,45,51,52,56,58,59,66,68) MARIEL WOOD(ASCP) (CASE ELECTRONICALLY SIGNED 09 19 2017) ADEQUACY: SATISFACTORY. ENDOCERVICAL/TRANSFORMATION ZONE COMPONENT PRESENT. SOURCE: THINPREP PAP HPV ANY DX: REFLEX 16 AND 18, CERVICAL, IMAGED: CLINICAL INFORMATION: HPV ANY DIAGNOSIS. Z12.4, PAP HX: POSITIVE HAS HAD HPV IN THE PAST, LAST PAP IN 2014 NORMAL WITH NEG HPV us Lety Parr DO LAB CYTOLOGY ORDERABLES Final Result HISTORICAL TESTING LAB RESULTING AGENCY * Hepatitis C Screening (09/01/2012) Hepatitis C Screening abstracted us Historical Provider MD HEALTH MAINTENANCE Final Result from Last 3 Months or Most Recently Relevant to Health Maintenance Insurance [facility] MEDICARE Member Subscriber Plan / Payer (Ef fective 2023-Present) Name:Robbi Guerita Relation to Subscriber:Self Name:Guerita Culp Payer ID:[id number] Group ID:[id number] Type:Not on file Address: [address] [place] [address] Care Teams Cloth Printer Relationship Specialty Start Date End Date Javon Hurt MD [address] [place] [address] [place] [id number] PCP - General Internal Medicine 05/08/19
--- OUTSIDE RECORDS SUMMARY | 2025-03-18 10:44 | XMS_ITS | Patient Health Record ---
Author Organization [facility] [place] [address] Care Team Providers Care Fudge Candy Maker Name Role Phone NargismathewJavon chi Primary Care [...] Status W/U Status Risk Notes Problem Hypertension (14873631) Hypertension (I10) Active confirmed Problem Depression (672289687) Depression (F32.9) Active confirmed Problem Hypothyroid (56274564) Hypothyroid (E03.9) Active confirmed Problem Orthostatic hypotension (76035711) Orthostatic hypotension (I95.1) Active confirmed Problem Hyperlipidemia (44758756) Hyperlipidemia (E78.5) Active confirmed Problem Carpal tunnel syndrome of right wrist (030986512753810) Carpal tunnel syndrome of right wrist (G56.01) Active confirmed Problem Palpitations (68211065) Palpitation (R00.2) Active confirmed Problem Common migraine (46915405) Common migraine (G43.009) Active confirmed Plan Of Treatment No Information Insurance Providers Payer Name Payer Address Payer Phone Subscriber Number Group Number Insured Name Patient Relationship to Insured Coverage Start Date Coverage End Date [facility] SCO ([id number]) [address] [facility] [address] [place] [address] [id number] Guerita Culp Self - patient is the insured 4 [phone]
== END 2025-03-18 11:00 | disposition home or self-care (01) ==
LOC: HO.HOP 09:38
PROVIDERS: PCP Internal Medicine; Visit Provider Clinical Nurse Specialist Psychiatric/Mental Health
DX: F42.3 Hoarding disorder (principal); F33.9 Major depressive disorder, recurrent, unspecified
CPT/HCPCS: 99214

== ENCOUNTER → 2025-03-18 09:38 | Outpatient (BNVA) | payer OTHER, SELFPAY | PROVIDERS: PCP Internal Medicine; Visit Provider Clinical Nurse Specialist Psychiatric/Mental Health | DX: F42.3 Hoarding disorder (principal); F33.9 Major depressive disorder, recurrent, unspecified | CPT/HCPCS: 99212 ==

== ENCOUNTER 2025-04-19 09:11 | Outpatient (AMB) | payer OTHER, SELFPAY ==
--- OUTSIDE RECORDS SUMMARY | 2025-04-19 09:50 | XMS_ITS | Clinical Summary ---
Author Organization [place] [address] [address] [facility] Building Address [address] [place] [address] Phone Care Team Providers Care Housing Assistant Name Role Phone Javon Hurt MD Primary Care Provider Un available Allergies No known active allergies Medications QUEtiapine [...] 11/17/2009 Overview (05/27/2024): Dr. Dean Nelson; [address] [place], [place] Hypothyroid 06/24/2008 Orthostatic hypotension 02/24/2007 Migraine without aura 10/19/2005 Overview (05/27/2024): IMO update Hyperlipidemia 10/19/2005 Hypertension 10/19/2005 Overview (05/27/2024): 24 hr monitor - confirms elevated (not white coat) - amlodipine increased to 7.[address] Kamara (end April) Palpitations 10/19/2005 Syncope and collapse 10/19/2005 Encounters Date Type Department Care Team Description 04/05/2025 Telephone Internal Medicine - [address] [phone] Javon Hurt MD 03/31/2025 2:53 PM EDT - 03/31/2025 11:59 PM EDT Hospital Encounter Bone Density - [address] [phone] Osteoporosis screening Discharge Disposition: Home or Self Care 03/19/2025 10:00 AM EDT Treatment Outpatient Rehabilitation - [address] [phone] Mendoza Lyles, PT Heavy sensation of lower extremity (Primary Dx) 03/18/2025 [place] [facility] - [address] [phone] Javon Hurt MD 03/17/2025 [facility] [address] [phone] Didi Carvalho MA 03/15/2025 10:00 AM EDT Treatment Outpatient Rehabilitation - [address] [phone] Pete May, MAIL ROOM CLERK Heavy sensation of lower extremity (Primary Dx) 03/12/2025 11:30 AM EDT Treatment Outpatient Rehabilitation - [address] [phone] Pete May, MAIL ROOM CLERK Heavy sensation of lower extremity (Primary Dx) 03/01/2025 10:30 AM EDT Treatment Outpatient Rehabilitation - [address] [phone] Pete May, MAIL ROOM CLERK Heavy sensation of lower extremity (Primary Dx) 02/26/2025 11:00 AM EDT Treatment Outpatient Rehabilitation - [address] [phone] Pete May, MAIL ROOM CLERK Heavy sensation of lower extremity (Primary Dx) 02/26/2025 Telephone Internal Medicine - [address] [phone] Amber Landry RN 02/22/2025 10:45 AM EDT Treatment Outpatient [address] [phone] Pete May, MAIL ROOM CLERK Heavy sensation of lower extremity (Primary Dx) 02/19/2025 10:00 AM EDT Treatment Outpatient [facility] - [address] [phone] RafalMendoza keith M, PT Heavy sensation of lower extremity (Primary Dx) 02/15/2025 10:00 AM EDT Treatment Outpatient [address] [phone] Pete May, MAIL ROOM CLERK Heavy sensation of lower extremity (Primary Dx) 02/12/2025 10:00 AM EDT Treatment Outpatient [facility] - [address] [phone] RafalMendoza keith M, PT Heavy sensation of lower extremity (Primary Dx) 02/08/2025 10:00 AM EDT Treatment Outpatient [address] [phone] Pete May, MAIL ROOM CLERK Heavy sensation of lower extremity (Primary Dx) 02/05/2025 10:00 AM EDT Treatment Outpatient [facility] - [address] [phone] Pete May, MAIL ROOM CLERK Heavy sensation of lower extremity (Primary Dx) 02/01/2025 10:00 AM EDT Treatment Outpatient [facility] - [address] [phone] Pete May, MAIL ROOM CLERK Heavy sensation of lower extremity (Primary Dx) 01/29/2025 10:00 AM EDT Treatment Outpatient [facility] - [address] [phone] Pete May, MAIL ROOM CLERK Heavy sensation of lower extremity (Primary Dx) 01/25/2025 10:00 AM EDT [address] [phone] Pete May, MAIL ROOM CLERK Heavy sensation of lower extremity (Primary Dx) from Last 3 Months Immunizations Immunization Administration Dates Next Due Influenza trivalent, 0.5mL [...] Comments CHOLECYSTECTOMY 04/23 PROCEDURE: HISTORICAL CHOLECYSTECTOMY; COMMENT: Jonathan; troy SECTION PROCEDURE: HISTORICAL DELIVERY COLONOSCOPY 04/23 PROCEDURE: HISTORICAL COLONOSCOPY; COMMENT: Jonathan; neg OTHER SURGICAL HISTORY 08/06/13 PROCEDURE: COLON CA [...] Care Team (Late st Contact Info) Description 04/22/2025 8:30 AM EDT Office Visit Internal Medicine - [address] [phone] Adore Melendrez, DEONTE [address] [place] [phone] Health Maintenance Due Date Last Done Comments Colorectal Cancer Screening: Colonoscopy 1950 Zoster Vaccines (1 of 2) 1969 Cervical Cancer Screening: Pap Smear 09/17/2018 09/17/2017, 09/17/2017, 09/17/2017, Additional history exists Medicare Annual Wellness Visit 06/30/2022 Social Influencers of Health Screening 06/30/2022 COVID-19 Vaccine ( season) 2025 08/01/2021, 11/21/2020, 10/30/2020 Influenza Vaccine (#1) 2025 3, 07/06/2022, 08/17/2021, Additional history exists RSV Immunization Adult Patients (1 - 1-dose 75+ series) 2025 Falls Risk Assessment 12/21/2025 12/21/2024 Hypertension/CHF/CAD Annual BMP Blood Test 12/21/2025 12/21/2024, 11/20/2024, 10/23/2023 DTaP,Tdap,and Td Vaccines (3 - Td or Tdap) 07/01/2028 07/01/2018, 06/23/2008 Cholesterol Screening (Lipid Panel) 12/21/2029 12/21/2024, 04/12/2023 Osteoporosis Screening (Bone Density Screening) 03/31/2035 03/31/2025, 10/30/2022 Hepatitis C Screening Completed 09/01/2012 Pneumococcal Vaccine: 50+ Years Completed 04/30/2017, 11/07/2015 Breast Cancer Screening Discontinued 10/31/19 23, 08/17/2020, 08/11/2019, Additional history exists Depression Screening Completed 12/21/2024, 12/31/19 HIB Vaccines Aged Out No longer eligi [...] on patient's age to complete this topic Procedures Procedure Name Priority Date/Time Associated Diagnosis Comments BD BONE DENSITY DXA AXIAL SKELETON Routine 03/31/2025 3:31 PM EDT Osteoporosis screening COMPREHENSIVE METABOLIC PANEL Routine 12/21/2024 11:51 AM EDT Screening for metabolic disorder LIPID PANEL WITH REFLEX TO DIRECT LDL Routine 12/21/2024 11:51 AM EDT Screening for metabolic disorder Mixed hyperlipidemia HM DEPRESSION SCREENING Routine 12/31/2023 SCREENING MAMMOGRAPHY BI 2-VIEW BREAST INC CAD Routine 10/30/2022 3:31 PM EDT Encounter for screening mammogram for malignant neoplasm of breast PAP SMEAR Routine 09/17/2017 HEPATITIS C SCREENING Routine 09/01/2012 from Last 3 Months or Most Recently Relevant to Health Maintenance Results * BD Bone Density DXA Axial Skeleton (03/31/2025 3:31 PM EDT) Anatomical Region Laterality Modality Wrist, Hip, L-spine Bone Densito metry 04/06/2025 2:40 PM EDT Impressions 04/06/2025 2:42 PM EDT Normal bone mineral density by WHO criteria. The [facility] Department of Internal Medicine recommends using National Osteoporosis Foundation (NOF) guidelines in treatment decisions related to osteoporosis. NOF guidelines suggest considering treatment for postmenopausal women and men aged 50 or older presenting with the following: History of hip or vertebral fracture. T-score = -2.5 (DXA) at the femoral neck, total hip, or spine, after appropriate evaluation to exclude secondary causes. Low bone mass (T-score between -1.0 and -2.5 at the femoral neck or spine) AND a 10-year probability of a hip fracture = 3% OR a 10-year probability of a major osteoporosis-related fracture = 20% based on the [place]-adapted WHO algorithm Please note that all treatment decisions require clinical judgment and consideration of individual patient factors, including patient preferences, co-morbidities, previous drug use, risk factors not captured in the FRAX model (e.g., frailty, falls, vitamin D deficiency, increased bone turnover, interval significant decline in bone density) and possible under- or over-estimation of fracture risk by FRAX. Optional alternative screening schedule based on javid Wiley., [facility] August 09, 2011 for patients with osteopenia (based on hip BMD T-score) is as follows: * advanced osteopenia (T scores -2.00 to -2.49), BMD testing every year * moderate osteopenia (T scores -1.50 to -1.99), BMD testing every 5 years mild osteopenia or normal BMD (T scores -1.50 and higher), BMD testing every 15 years -------- FINAL REPORT -------- Dictated By: Pia Enriquez Dictated Date: 04/06/2025 14:40 ET Assigned Physician: Pia Enriquez Reviewed and Electronically Signed By: Pia Enriquez Signed Date: 04/06/2025 14:42 ET Workstation ID: [id number] Transcribed By: Self Edit Transcribed Date: 04/06/2025 14:40 ET Narrative 04/06/2025 2:42 PM EDT BONE DENSITY SCAN (DEXA) FINDINGS: Lumbar Spine T-score is 0.4. (SD relative to 20-29 y/o adult) Z-score is 2.8. (SD relative to age matched peers) This is considered normal by WHO criteria. Left Hip T-score is -1.0. Z-score is 1.1. This is considered normal by WHO criteria. Comparison: 10/30/2022. Unable to assess change in bone mineral density due to technical factors. Procedure Note Pia Enriquez MD - 04/06/2025 BONE DENSITY SCAN (DEXA) FINDINGS: Lumbar Spine T-score is 0.4. (SD relative to 20-29 y/o adult) Z-score is 2.8. (SD relative to age matched peers) This is considered normal by WHO criteria. Left Hip T-score is -1.0. Z-score is 1.1. This is considered normal by WHO criteria. Comparison: 10/30/2022. Unable to assess change in bone mineral densitydue to technical factors. IMPRESSION: Normal bone mineral density by WHO criteria. The [facility] Department of Internal Medicine recommendsusing National Osteoporosis Foundation (NOF) guidelines in treatmentdecisions related to osteoporosis. NOF guidelines suggest consideringtreatment for postmenopausal women and men aged 50 or older presentingwith the following: History of hip or vertebral fracture. T-score = -2.5 (DXA) at the femoral neck, total hip, or spine, afterappropriate evaluation to exclude secondary causes. Low bone mass (T-score between -1.0 and -2.5 at the femoral neck or spine)AND a 10-year probability of a hip fracture = 3% OR a 10-year probabilityof a major osteoporosis-related fracture = 20% based on the [place]-adapted WHOalgorithm Please note that all treatment decisions require clinical judgment andconsideration of individual patient factors, including patientpreferences, co-morbidities, previous drug use, risk factors not capturedin the FRAX model (e.g., frailty, falls, vitamin D deficiency, increasedbone turnover, interval significant decline in bone density) and possibleunder- or over-estimation of fracture risk by FRAX. Optional alternative screening schedule based on javid Wiley., [facility] for patients with osteopenia (based on hip BMD T-score)is as follows: * advanced osteopenia (T scores -2.00 to -2.49), BMD testing every year * moderate osteopenia (T scores -1.50 to -1.99), BMD testing every 5years mild osteopenia or normal BMD (T scores -1.50 and higher), BMD testingevery 15 years -------- FINAL REPORT -------- Dictated By: Pia Enriquez Dictated Date: 04/06/2025 14:40 ET Assigned Physician: Pia Enriquez Reviewed and Electronically Signed By: Pia Enriquez Signed Date: 04/06/2025 14:42 ET Workstation ID: [id number] Transcribed By: Self Edit Transcribed Date: 04/06/2025 14:40 ET Adore Juárez NP IM DXA PROCEDURES Final Res ult * (ABNORMAL) Lipid panel with reflex to direct LDL (12/21/2024 11:51 AM EDT) [facility] Cholesterol 223(H) 0 - 200 mg/dL LAB CHEMISTRY METHOD 12/21/2024 4:49 PM EDT [facility] Triglycerides 141 0 - 150 mg/dL LAB CHEMISTRY METHOD 12/21/2024 4:49 PM EDT [facility] HDL 58 >=40 mg/dL LAB CHEMISTRY METHOD 12/21/2024 4:49 PM EDT [facility] LDL Calculated 137(H) 0 - 100 mg/dL LAB CHEMISTRY METHOD 12/21/2024 4:49 PM EDT [facility] VLDL Cholesterol Flaco 28.2 mg/dL LAB CHEMISTRY METHOD [facility] Non HDL Chol. (LDL+VLDL) 165(H) <145 mg/dL LAB CHEMISTRY METHOD [facility]24 [facility] Chol/HDL Ratio 3.8 0.0 - 4.4 LAB CHEMISTRY METHOD 12/21/2024 4:49 PM T [facility] Blood Venous blood specimen / Unknown Venipuncture / Unknown 12/21/2024 11:51 AM EDT 12/21/2024 11:51 AM EDT us Adore Juárez ENVIRONMENTAL HEALTH SAFETY ENGINEER LAB BLOOD ORDERABLES Final R esult [facility] [address] [place] [address], * (ABNORMAL) Comprehensive metabolic panel (12/21/2024 11:51 AM EDT) Sodium 142 133 - 145 mmol/L LAB CHEMISTRY METHOD 12/21/2024 4:49 PM [facility] Potassium 4.7 3.5 - 5.5 mmol/L LAB CHEMISTRY METHOD 12/21/2024 4:49 PM T [facility] Comment:Hemolysis present Chloride 108 96 - 110 mmol/L LAB CHEMISTRY METHOD 12/21[facility]2024 4:[facility] CO2 28 21 - 32 mmol/L LAB CHEMISTRY METHOD 12/21/2024 4:49 PM [facility] Anion Gap 6 3 - 11 LAB CHEMISTRY METHOD 12/21/2024 4:49 PM [facility] Glucose 100 70 - 100 mg/dL LAB CHEMISTRY METHOD 12/21/2024 4:49 PM [facility] BUN 20 5 - 25 mg/dL LAB CHEMISTRY METHOD 12/21/2024 4:49 PM [facility] Creatinine 1.09 0.50 - 1.10 mg/dL LAB CHEMISTRY METHOD 12/21/2024 4:49 PM [facility] eGFR 53(L) >=60 mL/min/1. 73m2 LAB CHEMISTRY METHOD 12/21/2024 4:49 PM [facility] Comment:Calculation based on the Chronic Kidney Disease Epidemiology Collaboration (CKD-EPI) equation refit without adjustment for race. BUN/Creatinine Ratio 18.3 LAB CHEMISTRY METHOD 12/21/2024 4:49 PM [facility] Calcium 8.8 8.5 - 10.5 mg/dL LAB CHEMISTRY METHOD 12/21/2024 4:49 PM [facility] AST (SGOT) 30 10 - 42 unit/L LAB CHEMISTRY METHOD 12/21/2024 4:49 PM [facility] ALT (SGPT) 24 10 - 60 unit/L LAB CHEMISTRY METHOD 12/21/2024 4:49 PM [facility] Alkaline Phosphatase 95 42 - 121 unit/L LAB CHEMISTRY METHOD 12/21/2024 4:49 PM [facility] Total Protein 6.7 6.0 - 8.0 g/dL LAB CHEMISTRY METHOD 12/21/2024 4:49 PM [facility] Albumin 3.5 3.2 - 5.0 g/dL LAB CHEMISTRY METHOD 12/21/2024 4:49 PM EDT [facility] Total Bilirubin 0.5 0.0 - 1.4 mg/dL LAB CHEMISTRY METHOD 12/21/2024 4:49 PM EDT [facility] Blood Venous blood specimen / Unknown Venipuncture / Unknown 12/21/2024 11:51 AM EDT 12/21/2024 11:51 AM EDT us Adore Juárez ENVIRONMENTAL HEALTH SAFETY ENGINEER LAB BLOOD ORDERABLES Final R esult [facility] [address] [place] [address], [place] [phone] * Depression Screening (12/31/2023) Depression Screening abstracted [...] evidence of malignancy. BI-RADS 1 - negative us Javon Hurt MD IMG XR PROCEDURES Final R esult * Pap smear (09/17/2017) 09/17/2017 Narrative HISTORICAL TESTING LAB RESULTING AGENCY - 09/19/2017 1:40 PM EST [id number] THINPREP PAP, IMAGED: NEGATIVE FOR SQUAMOUS INTRAEPITHELIAL [...] PAP IN 2014 NORMAL WITH NEG HPV Lety Parr DO LAB CYTOLOGY ORDERABLES Final Result HISTORICAL TESTING LAB RESULTING AGENCY * Hepatitis C Screening (09/01/2012) Hepatitis C Screening abstracted Historical Provider HEALTH MAINTENANCE Final Result from Last 3 Months or Most Recently Relevant to Health Maintenance Insurance [facility] MEDICARE Member Subscriber Plan / Payer (Ef fective 2023-Present) Name:Guerita Culp Relation to Subscriber:Self Name:Guerita Culp Payer ID:[id number] Group ID:[id number] Type:Not on file Address: [facility] [address] [place] [address] Care Teams Housing Assistant Relationship Specialty Start Date End Date Javon Hurt MD PCP - General Internal Medicine 05/08/19
--- OUTSIDE RECORDS SUMMARY | 2025-04-19 09:50 | XMS_ITS | Encounter Summary ---
Author Organization [facility] Address [address] [place] [address] Care Team Providers Care Network Control Operators Supervisor Name Role Phone Javon Hurt MD Primary Care Provider Un available Reason for Visit * Reason Onset Date Comments pre-op 04/05/2025 Encounter Details Date Type Department Care Team (Late st Contact Info) Description 04/05/2025 Telephone Internal Medicine - [facility] [address] [place] [phone] Javon Hurt MD needs address update Social History Tobacco Use Types Packs/Day Years [...] as of this encounter Progress Notes * Estella Crook - 04/05/2025 9:24 AM EDT Pt needs to reschedule todays' pre-op apt with Dr Bush, had car trouble unable to come in. Statethis is not for pre-op. She has no surgery schedule. There are no notes in the appt. Please advise what this apt was for? documented in this encounter Plan of Treatment Upcoming Encounters Date Type Department Care Team (Late Contact Info) Description 04/22/2025 8:30 AM EDT Office Visit Internal Medicine - [facility] [address] [place] [phone] Adore Melendrez, MEDICINE TECHNOLOGIST [address] [place] [address] documented as of this encounter Visit Diagnoses Not on filedocumented in this encounter Additional Health Concerns Assessment Noted Time PHQ-9 Depression Total Score: 0 12/22/19 25 12:00 PM EDT documented as of this encounter Care Teams Network Control Operators Supervisor Relationship Specialty Start Date End Date Javon Hurt MD PCP - General Internal Medicine 05/08/19 documented as of this encounter
--- OUTSIDE RECORDS SUMMARY | 2025-04-19 09:50 | XMS_ITS | Patient Health Record ---
Author Organization [facility] [place] [address] Care Team Providers Care Patient Access Director Name Role Phone ConcettaJavon chi Primary Care Provider Unava ilable Allergies [...] Status W/U Status Risk Notes Problem Hypertension (60672337) Hypertension (I10) Active confirmed Problem Depression (820813738) Depression (F32.9) Active confirmed Problem Hypothyroid (04945703) Hypothyroid (E03.9) Active confirmed Problem Orthostatic hypotension (36608671) Orthostatic hypotension (I95.1) Active confirmed Problem Hyperlipidemia (33144756) Hyperlipidemia (E78.5) Active confirmed Problem Carpal tunnel syndrome of right wrist ([id number]) Carpal tunnel syndrome of right wrist (G56.01) Active confirmed Problem Palpitations (22792899) Palpitation (R00.2) Active confirmed Problem Common migraine (58147153) Common migraine (G43.009) Active confirmed Plan Of Treatment No Information Insurance Providers Payer Name Payer Address Payer Phone Subscriber Number Group Number Insured Name Patient Relationship to Insured Coverage Start Date Coverage End Date [facility] SCO ([id number]) [address] [facility] [address] [place] [address] [id number] Guerita Culp Self - patient is the insured 4 9
--- OUTSIDE RECORDS SUMMARY | 2025-04-19 09:50 | XMS_ITS | Encounter Summary ---
Author Organization [facility] Address [address] [place] [address] Care Team Providers Care Senior Accountant Name Role Phone Javon Hurt MD Primary Care Provider Un available Reason for Visit * Reason Onset Date Comments Forms/questionnaires 03/18/2025 Encounter Details Date Type Department Care Team (Late st Contact Info) Description 03/18/2025 Telephone Internal Medicine - [address] [place] [id number] Javon Hurt MD needs address update Social [...] as of this encounter Progress Notes * Ca Bartlett - 03/26/2025 2:50 PM EDT Pt called today to ask if this can be expedited, she stated that the dental office has sent this request originating back in november. Please contact pt once this is completed so that she can schedule herprocedure. Thank you * Capri Lakhani - 03/18/2025 12:31 PM EDT Dental clearance paperwork placed in forms bin for review. Please fax back when complete. Thank you documented in this encounter Plan of Treatment Upcoming Encounters Date Type Department Care Team (Late st Contact Info) Description 04/22/2025 8:30 AM EDT Office Visit Internal Medicine - [address] [id number] Adore Melendrez, [address] [place] [address] documented as of this encounter Visit Diagnoses Not on filedocumented in this encounter Additional Health Concerns Assessment Noted Time PHQ-9 Depression Total Score: 0 12/22/19 25 12:00 PM EDT documented as of this encounter Care Teams Senior Accountant Relationship Specialty Start Date End Date Javon Hurt MD PCP - General Internal Medicine 05/08/19 documented as of this encounter
--- NOTE | 2025-04-19 09:57 | MHC.OFFVISPS ---
Intake Intake Visit Reasons: depression Fractionating Still Operator Required: No Allergies No Known Allergies Allergy (Verified 03/31/24 14:45) Medication List - Last Reconciled 04/19/[address] APRN amlodipine 10 mg PO DAILY aripiprazole 5 mg PO QAM cholecalciferol (vitamin D3) 50 mcg PO QAM famotidine 20 mg PO BID fluoxetine 80 mg (4 x 20 mg) PO QAM gabapentin 100 mg orally take one in the morning and 3 caps at bedtime; levothyroxine 25 mcg PO QAM multivitamin with folic acid 400 mcg (Daily-David (with folic acid)) 1 tab PO QAM quetiapine 25 mg PO BEDTIME rosuvastatin 40 mg PO BEDTIME trazodone 150 mg (1.5 x 100 mg) PO BEDTIME HPI- Psychiatric Chief Complaint: depression HPI Narrative: Pt here for follow up re: OCD and Depression. Pt reports continued difficulty and stress in her life; she is still living in a skilled nursing(9 months now) she has been filling out applications for housing; she reports the skilled nursing life is very hard; she has to be out of the skilled nursing for most of the day and spends a lot of time at the library; they no longer provide any meals and also wont allow her to have any food stored in the skilled nursing so she is finding it very expensive to by one serving meals. She also has trouble with transportation now that [employer] van will only take her to doctor appts: she has to learn how to take buses from [place] to [place]; she needs to take one bus to [employer] in [place] and then another to [place] to get her mail, meds etc. she doesn't want to change those things because she is hoping to move soon. she has made a female friend at skilled nursing and they do laundry together and take meals together, her male friend has relapsed on cocain and etoh and has been verbally abusive and asking her for money; she is sleeping better. Her mood is stable; She denies medical changes. Her PHQ9=4 and her GAD7=2. No other episodes of fainting or collapse. Pt denies dizziness. Pt denies SI or HI. Pt reports adherence to meds. Past Psychiatric History: hx of OCD Hoarding type treated outpatient by Dr Sarmiento in past Subjective Subjective Subjective Medication Compliance: Yes Side effects from medications: No Review of Systems Medical Review of Systems: unchanged Mental Status Exam Mental Status Exam Patient Appearance: Well Grooomed and Appropriate Patient Orientation: Person, Place, Time and Situation Level of Consciousness: Awake and Appropriate Patient Behavior: Appropriate Mood Description: Calm and Sad Affect Description: Calm, Apathetic and Sad Patient Cognition Impaired: No Ability to Follow Directions: Good Speech Pattern: Clear and Appropriate Memory Description: Intact Hallucinations: None Delusions: Not Present Thought Process: Intact and Goal Oriented Thought Content: positive for Intact and positive for Goal Oriented Judgement: Good Assessment and Plan Assessment & Plan (1) OCD (obsessive compulsive disorder): Status: Acute Qualifiers: Obsessive-compulsive disorder type: hoarding disorder Qualified Code(s): F42.3 - Hoarding disorder Code(s): F42.9 - Obsessive-compulsive disorder, unspecified (2) Major depressive disorder, recurrent episode with anxious distress: Status: Acute Code(s): F33.9 - Major depressive disorder, recurrent, unspecified Medications: Refilled fluoxetine 80 mg (4 x 20 mg) PO QAM 120 caps 2RF multivitamin with folic acid 400 mcg (Daily-David (with folic acid)) 1 tab PO QAM 30 tabs 2RF aripiprazole 5 mg PO QAM 30 tabs 2RF gabapentin 100 mg orally take one in the morning and 3 caps at bedtime; 120 caps 2RF quetiapine 25 mg PO BEDTIME 30 tabs 2RF trazodone 150 mg (1.5 x 100 mg) PO BEDTIME 45 tabs 2RF Counseling and coordination of Care Pt. Self Management counseling: Maintenance-social rhythm, Sleep hygiene, General coping skills and Problem solving Medication management counseling: Effectiveness, Side effects, Dosing range, Duration, Drug interaction and Adherence Diagnosis and Prognosis Counseling: Accuracy of diagnosis, Prognosis over time, Impact of diagnosis on life functions, Impact of family relationship, Problematic behaviors secondary to diagnosis and Adequacy of current interventions Details: I spent 35 minutes reviewing the record, seeing the patient and documenting in the medical record. Counseling provided to the patient/caregiver as outlined below. Addressed patient/caregiver concerns regarding current medication regime including effective adherence. Addressed patient/caregiver concerns regarding diagnosis and prognosis including accuracy of diagnosis, prognosis over time, impact of diagnosis. Addressed patient/caregiver concerns regarding impact of recent stressors. [facility] Medical History (Updated 04/01/24 @ 00:00 by Background Daemon) Arthritis Heartburn Depression Hypothyroid HTN (hypertension) Lumbar radiculopathy Sciatica DVT (deep venous thrombosis) Surgical History (Updated 04/05/23 @ 15:30 by ANDREW Borjas) H/O colonoscopy Hx laparoscopic cholecystectomy Hx of cataract extraction Hx of tonsillectomy Hx of section Social History Are you a primary healthcare social worker to a significant other at home: No Do you presently have visiting nurse or other home services: No Patient Tobacco Use Status: Never used Tobacco Social History: lives alone; has a male friend Substance History: none Trauma History: none known Coding Level of Care Code Est Pt Level 4 (52201) Diagnoses Hoarding disorder F42.3 Obsessive-compulsive disorder type: hoarding disorder Major depressive disorder, recurrent episode with anxious distress F33.9
== END 2025-04-19 10:42 | disposition home or self-care (01) ==
LOC: HO.HOP 09:11
PROVIDERS: PCP Internal Medicine; Visit Provider Clinical Nurse Specialist Psychiatric/Mental Health
DX: F42.3 Hoarding disorder (principal); F33.9 Major depressive disorder, recurrent, unspecified
CPT/HCPCS: 99214

== ENCOUNTER → 2025-04-19 09:11 | Outpatient (BNVA) | payer OTHER, SELFPAY | PROVIDERS: PCP Internal Medicine; Visit Provider Clinical Nurse Specialist Psychiatric/Mental Health | DX: F42.3 Hoarding disorder (principal); F33.9 Major depressive disorder, recurrent, unspecified | CPT/HCPCS: 99212 ==

== ENCOUNTER 2025-06-14 09:42 | Outpatient (AMB) | payer OTHER, SELFPAY ==
--- NOTE | 2025-06-14 10:09 | A.OFFPSYCH_ITS ---
Intake Intake Visit Reasons: depression Open Claims Representative Required: No Allergies No Known Allergies Allergy (Verified 03/31/24 14:45) Medication List - Last Reconciled 06/14/[address] Berry APRN amlodipine 10 mg PO DAILY aripiprazole 5 mg PO QAM cholecalciferol (vitamin D3) 50 mcg PO QAM famotidine 20 mg PO BID fluoxetine 80 mg (4 x 20 mg) PO QAM gabapentin 100 mg orally take one in the morning and 3 caps at bedtime; levothyroxine 25 mcg PO QAM multivitamin with folic acid 400 mcg (Daily-David (with folic acid)) 1 tab PO QAM quetiapine 25 mg PO BEDTIME rosuvastatin 40 mg PO BEDTIME trazodone 150 mg (1.5 x 100 mg) PO BEDTIME HPI- Psychiatric Chief Complaint: depression HPI Narrative: Pt here for follow up re: OCD and Depression. Pt reports continued difficulty and stress in her life; she is still living in a nursing home. she continues to fill out applications for housing; she reports the nursing home life is very hard; she can spend time in the nursing home during the day becauseof the cold but can not access her bed, belongings, soft chairs, or tv until 430pm. She can not eat in the nursing home or bring any food in. She also has trouble with transportation now that [employer] van will only take her to doctor appts; she is spending time with a female friend at nursing home and they do laundry together and take meals together, her male friend is sober again and she will spend Thanksgiving with him and a friend. she is sleeping better. Her mood is more depressed and worried. She denies medical changes. Her PHQ9=9 and her GAD7=9. No other episodes of fainting or collapse. Pt denies dizziness. Pt denies SI or HI. Pt reports adherence to med s. Past Psychiatric History: hx of OCD Hoarding type treated outpatient by Dr Sarmiento in past Subjective Subjective Medication Compliance: Yes Side effects from medications: No Review of Systems Medical Review of Systems: unchanged Mental Status Exam Mental Status Exam Patient Appearance: Well Grooomed and Appropriate Patient Orientation: Person, Place, Time and Situation Level of Consciousness: Awake and Appropriate Patient Behavior: Appropriate Mood Description: Calm and Sad Affect Description: Calm, Apathetic and Sad Patient Cognition Impaired: No Ability to Follow Directions: Good Speech Pattern: Clear and Appropriate Memory Description: Intact Hallucinations: None Delusions: Not Present Thought Process: Intact and Goal Oriented Thought Content: positive for Intact and positive for Goal Oriented Judgement: Good Assessment and Plan Assessment & Plan (1) OCD (obsessive compulsive disorder): Status: Acute Qualifiers: Obsessive-compulsive disorder type: hoarding disorder Qualified Code(s): F42.3 - Hoarding disorder Code(s): F42.9 - Obsessive-compulsive disorder, unspecified (2) Major depressive disorder, recurrent episode with anxious distress: Status: Acute Code(s): F33.9 - Major depressive disorder, recurrent, unspecified Plan continue meds below return in 2 months Medications: Refilled quetiapine 25 mg PO BEDTIME 30 tabs 2RF trazodone 150 mg (1.5 x 100 mg) PO BEDTIME 45 tabs 2RF aripiprazole 5 mg PO QAM 30 tabs 2RF cholecalciferol (vitamin D3) 50 mcg PO QAM 90 tabs 2RF fluoxetine 80 mg (4 x 20 mg) PO QAM 120 caps 2RF gabapentin 100 mg orally take one in the morning and 3 caps at bedtime; 120 caps 2RF multivitamin with folic acid 400 mcg (Daily-David (with folic acid)) 1 tab PO QAM 30 tabs 2RF Counseling and coordination of Care Pt. Self Management counseling: Maintenance-social rhythm, Sleep hygiene, General coping skills and Problem solving Medication management counseling: Effectiveness, Side effects, Dosing range, Duration, Drug interaction and Adherence Diagnosis and Prognosis Counseling: Accuracy of diagnosis, Prognosis over time, Impact of diagnosis on life functions, Impact of family relationship, Problematic behaviors secondary to diagnosis and Adequacy of current interventions Details: I spent 35 minutes reviewing the record, seeing the patient and documenting in the medical record. Counseling provided to the patient/caregiver as outlined below. Addressed patien t/caregiver concerns regarding current medication regime including effective adherence. Addressed patient/caregiver concerns regarding diagnosis and prognosis including accuracy of diagnosis, prognosis over time, impact of diagnosis. Addressed patient/caregiver concerns regarding impact of recent stressors. [facility] Medical History (Updated 04/01/24 @ 00:00 by Zach Boateng) Arthritis Heartburn Depression Hypothyroid HTN (hypertension) Lumbar radiculopathy Sciatica DVT (deep venous thrombosis) Surgical History (Updated 04/05/23 @ 15:30 by ANDREW Borjas) H/O colonoscopy Hx laparoscopic cholecystectomy Hx of cataract extraction Hx of tonsillectomy Hx of section Social History Are you a primary care consultant to a significant other at home: No Do you presently have visiting nurse or other home services: No Patient Tobacco Use Status: Never used Tobacco Social History: lives alone; has a male friend Substance History: none Trauma History: none known Coding Level of Care Code Est Pt Level 4 (98375) Diagnoses Hoarding disorder F42.3 Obsessive-compulsive disorder type: hoarding disorder Major depressive disorder, recurrent episode with anxious distress F33.9
--- OUTSIDE RECORDS SUMMARY | 2025-06-14 11:21 | XMS_ITS | Clinical Summary ---
Author Organization [place] [address] [facility] Address [address] [place] [address] Phone Care Team Providers Care Rivet Machine Operator Name Role Phone Regina Burton MD Primary Care Provider [phone] Allergies No known active allergies Medications QUEtiapine [...] Take 3 times a day. 9 Active cholecalcifero l (VITAMIN D-3) 50 mcg (2,000 unit) tablet Take 1 tablet (2,000 Units total) by mouth 1 (one) time each day. 30 tablet 5 Active amLODIPine (NORVASC) 10 mg tablet TAKE 1 TABLET(10 MG) BY MOUTH 1 TIME EACH DAY 30 tablet 1 5 Active rosuvastatin (CRESTOR) 40 mg tablet TAKE 1 TABLET BY MOUTH ONCE DAILY 30 tablet 1 5 Active famotidine (PEPCID) [...] time each day. 90 each 1 5 026 Active polyethylene glycol (Golytely) 236-22.74-6.74 -5.86 gram [...] by the office 2 tablet 5 Active Daily-David, with folic acid, 400 mcg tablet Take 1 tablet by mouth 1 (one) time each day in the morning. 5 Active COVID-19 antigen test (BinaxNOW COVID-19 Ag Self Test) kit TEST DIRECTED TODAY Active levothyroxine (SYNTHROID, LEVOTHROID) 50 mcg tablet Take 1 tablet (50 mcg total) by mouth 1 (one) time each day. 90 tablet 1 5 Active levothyroxine (SYNTHROID, LEVOTHROID) 25 mcg tablet TAKE 1 TABLET(25 MCG) BY MOUTH 1 TIME EACH DAY 30 tablet 1 5 025 Discontin ued(Reord er) Active Problems Problem Noted Date Diagnosed Date Obesity, morbid ([facility] V24, [facility] V28) 12/21 Prediabetes 11/20/2024 Carpal tunnel syndrome on right 09/07/2015 Overview (05/27/2024): NEOS Moderately severe major depr ession ([facility] V24, [facility] V28) 11/17/2009 Overview (05/27/2025): >>OVERVIEW FOR DEPRESSION WRITTEN ON 05/27/2024 2:20 PM BY ZAYDA Nelson; [address], [place] Hypothyroid 06/24/2008 Orthostatic hypotension 02/24/2007 Migraine without aura 10/19/2005 Overview (05/27/2024): IMO update Hyperlipidemia 10/19/2005 Hypertension 10/19/2005 Overview (05/27/2024): 24 hr monitor - confirms elevated (not white coat) - amlodipine increased to 7.[address] 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; Hypothyroidism, unspecified type; Primary hypertension; Mixed hyperlipidemia 05/27/2025 9:15 AM EST Office Visit Internal Medicine - [address] [place] [phone] Adore Melendrez, DEONTE Moderately severe major depression (CMS/HCC V24, CMS/HCC V28) (Primary Dx); Primary hypertension; Palpitations; Mixed hyperlipidemia; Hypothyroidism, unspecified type; Syncope and collapse; Migraine without aura and without status migrainosus, not intractable; Carpal tunnel syndrome on right; 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 05/27/2025 Results Follow-Up Internal Medicine - [address] [place] [phone] Adore Melendrez NP 05/25/2025 Telephone Internal Medicine - [address] [place] [phone] Amber Landry RN 04/05/2025 Telephone Internal Medicine - [address] [place] [phone] Javon Hurt MD 03/31/2025 2:53 PM EDT - 03/31/2025 11:59 PM EDT Hospital Encounter Bone Density - [address] [phone] Osteoporosis screening Discharge Disposition: Home or Self Care 03/19/2025 10:00 AM EDT Treatment Outpatient Rehabilitation - [address] [phone] Mendoza Lyles, PT Heavy sensation of lower extremity (Primary Dx) 03/18/2025 Telephone Internal Medicine - [address] [phone] Javon Hurt MD 03/17/2025 Telephone Internal Medicine - [address] [phone] Didi Carvalho [place] 03/15/2025 10:00 AM EDT Treatment Outpatient Rehabilitation - [address] [phone] Pete May, EQUITIES ANALYST Heavy sensation of lower extremity (Primary Dx) [...] CHOLECYSTECTOMY 04/23 PROCEDURE: HISTORICAL CHOLECYSTECTOMY; COMMENT: Jonathan; neg SECTION PROCEDURE: HISTORICAL DELIVERY COLONOSCOPY 04/23 PROCEDURE: [...] Sign Reading Time Taken Comments Blood Pressure 112/82 05/27/2025 9:42 AM EST Pulse 57 05/27/2025 9:17 AM EST auto cuff Temperature 36.9 C (98.4 F) 05/27/2025 9:17 AM EST Respiratory Rate - - Oxygen Saturation - - Inhaled Oxygen Concentration - - Weight 78 kg (171 lb 14.4 oz) 05/27/2025 9:17 AM EST Height 162.6 cm (5' 4 ) 10/23/2023 1:12 PM EDT Body Mass Index 29.51 10/23/2023 1:12 PM EDT Plan of Treatment Upcoming Encounters Date Type Department Care Team (Late st Contact Info) Description 12/16/2025 10:00 AM EDT Office Visit Internal Medicine - [address] [place] [phone] Regina Burton [facility] [address] [facility] [place] Health Maintenance Due Date Last Done Comments Colorectal Cancer Screening: Colonoscopy 1950 Zoster Vaccines (1 of 2) 1969 Cervical Cancer Screening: Pap Smear 09/17/2018 09/17/2017, 09/17/2017, 09/17/2017, Additional history exists Medicare Annual Wellness Visit 06/30/2022 Social Influencers of Health Screening 06/30/2022 COVID-19 Vaccine ( season) 2025 08/01/2021, 11/21/2020, 10/30/2020 Influenza Vaccine (#1) 2025 , 07/06/2022, 08/17/2021, Additional history exists RSV Immunization Adult Patients (1 - 1-dose 75+ series) 2025 Falls Risk Assessment 12/21/2025 12/21/2024 Hypertension/CHF/CAD Annual BMP Blood Test 05/27/2026 05/27/2025, 12/21/2024, 11/20/2024, Additional history exists DTaP,Tdap,and Td Vaccines (3 - Td or Tdap) 07/01/2028 07/01/2018, 06/23/2008 Cholesterol Screening (Lipid Panel) 05/27/2030 05/27/2025, 12/21/2024, 04/12/2023 Osteoporosis Screening (Bone Density Screening) 03/31/2035 03/31/2025, 10/30/2022 Hepatitis C Screening Completed 09/01/2012 Pneumococcal Vaccine: 50+ Years Completed 04/30/2017, 11/07/2015 Breast Cancer Screening Discontinued 10/31/19 23, 08/17/2020, 08/11/2019, Additional history exists Depression Screening Completed 05/27/2025, 12/31/19 24 HIB Vaccines Aged Out No [...] Procedure Name Priority Date/Time Associated Diagnosis Comments TRIIODOTHYRONINE FREE Routine 05/27/2025 9:52 AM EST Hypothyroidism, unspecified type FREE THYROXINE WITH REFLEX TO FREE TRIIODOTHYRONINE Routine 05/27/2025 9:52 AM EST Hypothyroidism, unspecified type LIPID PANEL WITH REFLEX TO DIRECT LDL Routine 05/27/2025 9:52 AM EST Mixed hyperlipidemia COMPREHENSIVE METABOLIC PANEL Routine 05/27/2025 9:52 AM EST Primary hypertension Mixed hyperlipidemia THYROID STIMULATING HORMONE WITH REFLEX TO FREE T4 AND FREE T3 Routine 05/27/2025 9:52 AM EST Hypothyroidism, unspecified type FOLATE Routine 05/27/2025 9:52 AM EST 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 BD BONE DENSITY DXA AXIAL SKELETON Routine 03/31/2025 3:31 PM EDT Osteoporosis screening DEPRESSION SCREENING Routine 12/31/2023 SCREENING MAMMOGRAPHY BI 2-VIEW BREAST INC CAD Routine 10/30/2022 3:31 PM EDT Encounter for screening mammogram for malignant neoplasm of breast PAP SMEAR Routine 09/17/2017 HM HEPATITIS C SCREENING Routine 09/01/2012 from Last 3 Months or Most Recently Relevant to Health Maintenance Results * (ABNORMAL) Thyroid stimulating hormone with reflex to free t4 and free t3 (05/27/2025 9:52 AM EST) TSH 4.95(H) 0.40 - 4.00 mcIU/mL LAB CHEMISTRY METHOD 05/27/2025 2:41 PM EST [facility] Blood Venous blood specimen / Unknown Venipuncture / Unknown 05/27/2025 9:52 AM EST 05/27/2025 9:52 AM EST Adore Juárez VINYL DIPPER LAB BLOOD ORDERABLES Final R esult Performing Organization Address [facility]/ZIP Co de Phone Number [facility] [address] [place] [address], * Free thyroxine with reflex to free triiodothyronine (05/27/2025 9:52 AM EST) Free T4 1.13 0.70 - 1.80 ng/dL LAB CHEMISTRY METHOD 05/27/2025 3:07 PM EST [facility] Blood Venous blood specimen / Unknown Venipuncture / Unknown 05/27/2025 9:52 AM EST 05/27/2025 9:52 AM EST us Adore Juárez VINYL DIPPER LAB BLOOD ORDERABLES Final R esult [facility] [address] [place] [address], [place] [phone] * (ABNORMAL) Lipid panel with reflex to direct LDL (05/27/2025 9:52 AM EST) Cholesterol 259(H) 0 - 200 mg/dL LAB CHEMISTRY METHOD 05/27/2025 1:47 PM EST [facility] Triglycerides 108 0 - 150 mg/dL LAB CHEMISTRY METHOD 05/27/2025 1:47 PM [facility] HDL 66 >=40 mg/dL LAB CHEMISTRY METHOD 05/27/2025 1:47 PM [facility] LDL Calculated 171(H) 0 - 100 mg/dL LAB CHEMISTRY METHOD 05/27/2025 1:47 PM [facility] Comment:Estimated LDL Calcul ated using equation: Total cholesterol - HDL cholesterol - (Triglycerides/5) VLDL Cholesterol Flaco 21.6 mg/dL LAB CHEMISTRY METHOD 05/27/2025 1:47 PM [facility] Non HDL Chol. (LDL+VLDL) 193(H) <145 mg/dL LAB CHEMISTRY METHOD 05/27/2025 1:47 PM [facility] Chol/HDL Ratio 3.9 0.0 - 4.4 LAB CHEMISTRY METHOD 05/27/2025 1:47 PM [facility] Blood Venous blood specimen / Unknown Venipuncture / Unknown 05/27/2025 9:52 AM EST 05/27/2025 9:52 AM EST us Adore Juárez VINYL DIPPER LAB BLOOD ORDERABLES Final R esult Performing Organization Address City/[facility]/ZIP Co de Phone Number [facility] [address] [place] [address], * Triiodothyronine free (05/27/2025 9:52 AM EST) T3, Free 299 230 - 420 pcg/dL LAB CHEMISTRY METHOD 05/27/2025 4:41 PM [facility] Blood Venous blood specimen / Unknown Venipuncture / Unknown 05/27/2025 9:52 AM EST 05/27/2025 9:52 AM EST us Adore Juárez VINYL DIPPER LAB BLOOD ORDERABLES Final R esult [facility] [address] [place] [address], [place] [phone] * (ABNORMAL) Folate (05/27/2025 9:52 AM EST) [facility] Folate >20.0(H) 2.8 - 17.0 ng/ml LAB CHEMISTRY METHOD 05/27/2025 1:47 PM [facility] Blood Venous blood specimen / Unknown Venipuncture / Unknown 05/27/2025 9:52 AM EST 05/27/2025 9:52 AM EST Adore Juárez NP LAB BLOOD ORDERABLES Final R esult [facility] [address] [place] [address], [place] [phone] * (ABNORMAL) Comprehensive metabolic panel (05/27/2025 9:52 AM EST) [facility] Sodium 139 133 - 145 mmol/L LAB CHEMISTRY METHOD 05/27/2025 1:47 PM [facility] Potassium 4.2 3.5 - 5.5 mmol/L LAB CHEMISTRY METHOD 05/27/2025 1:47 PM [facility] Chloride 105 96 - 110 mmol/L LAB CHEMISTRY METHOD 05/27/2025 1:47 PM [facility] CO2 30 21 - 32 mmol/L LAB CHEMISTRY METHOD 05/27/2025 1:47 PM [facility] Anion Gap 4 3 - 11 LAB CHEMISTRY METHOD 05/27/2025 1:47 PM [facility] Glucose 68(L) 70 - 100 mg/dL LAB CHEMISTRY METHOD 05/27/2025 1:47 PM [facility] BUN 16 5 - 25 mg/dL LAB CHEMISTRY METHOD 05/27/2025 1:47 PM [facility] Creatinine 0.77 0.50 - 1.10 mg/dL LAB CHEMISTRY METHOD 05/27/2025 1:47 PM [facility] eGFR 81 >=60 mL/min/1. 73m2 LAB CHEMISTRY METHOD 05/27/2025 1:47 PM [facility] Comment:Calculation based on the Chronic Kidney Disease Epidemiology Collaboration (CKD-EPI) equation refit without adjustment for race. BUN/Creatinine Ratio 20.8 LAB CHEMISTRY METHOD 05/27/2025 1:47 PM [facility] Calcium 9.1 8.5 - 10.5 mg/dL LAB CHEMISTRY METHOD 05/27/2025 1:47 PM [facility] AST (SGOT) 18 10 - 42 unit/L LAB CHEMISTRY METHOD 05/27/2025 1:47 PM [facility] ALT (SGPT) 27 10 - 60 unit/L LAB CHEMISTRY METHOD 05/27/2025 1:47 PM [facility] Alkaline Phosphatase 102 42 - 121 unit/L LAB CHEMISTRY METHOD 05/27/2025 1:47 PM [facility] Total Protein 7.3 6.0 - 8.0 g/dL LAB CHEMISTRY METHOD 05/27/2025 1:47 PM [facility] Albumin 4.0 3.2 - 5.0 g/dL LAB CHEMISTRY METHOD 05/27/2025 1:47 PM [facility] Total Bilirubin 0.6 0.0 - 1.4 mg/dL LAB CHEMISTRY METHOD 05/27/2025 1:47 PM [facility] Blood Venous blood specimen / Unknown Venipuncture / Unknown 05/27/2025 9:52 AM EST 05/27/2025 9:52 AM EST us Adore Juárez NP LAB BLOOD ORDERABLES Final R esult [facility] [address] [place], [place] [address] [phone] * BD Bone Density DXA Axial Skeleton (03/31/2025 3:31 PM EDT) Anatomical Region Laterality Modality Wrist, Hip, L-spine Bone Densito metry 04/06/2025 2:40 PM EDT Impressions 04/06/2025 2:42 PM EDT Normal bone mineral density by WHO criteria. [facility] Department of Internal Medicine recommends using National [...] alternative screening schedule based on javid Wiley., [facility] August 09, 2011 for patients with osteopenia [...] Signed Date: 04/06/2025 14:42 ET Workstation ID: [id number] Transcribed By: Self Edit Transcribed Date: 04/06/2025 [...] bone mineral density by WHO criteria. [facility] Department of Internal Medicine recommendsusing National Osteoporosis [...] alternative screening schedule based on javid Wiley., NEJMJanuary 2011 for patients with osteopenia (based on [...] Signed Date: 04/06/2025 14:42 ET Workstation ID: [id number] Transcribed By: Self Edit Transcribed Date: 04/06/2025 14:40 ET Adore Juárez VINYL DIPPER IMG DXA PROCEDURES Final Res ult * Depression Screening (12/31/2023) Depression Screening abstracted [...] RESULTING AGENCY - 09/19/2017 1:40 PM EST [id number] THINPREP PAP, IMAGED: NEGATIVE FOR SQUAMOUS INTRAEPITHELIAL [...] ID:[id number] Group ID:[id number] Type:Not on file Address: [address] [place] [address] Care Teams Rivet Machine Operator Relationship Specialty Start Date End Date Regina Burton MD [address] [facility] [place] [address] PCP - General Internal Medicine 05/27/25
--- OUTSIDE RECORDS SUMMARY | 2025-06-14 11:21 | XMS_ITS | Encounter Summary ---
Author Organization [facility] Address [id number] [place] [phone] Care Team Providers Care Oil Tanker Captain Name Role Phone Regina Burton MD Primary Care Provider [phone] Reason for Visit * Reason Onset Date Comments Results 05/27/2025 Encounter Details Date Type Department Care Team (Late st Contact Info) Description 05/27/2025 Results Follow-Up Internal Medicine - [address] [phone] Adore Melendrez NP [address] [place] [address] Social History Tobacco Use Types Packs/Day Years [...] as of this encounter Progress Notes * Obdulia Remy [place] - 05/31/2025 8:58 AM EST Attempted to contact pt / no answer. VM is full,letter mailed. ----- Message from Karthik Juárez NP sent at 05/27/2025 5:35 PM EST ----- Thyroid level is elevated which is abnormal. I will increase your dosage of the thyroid medication.Your folate level continues to be elevated. If you are taking a folic acid supplement please take it every other day. Your total cholesterol has increased as well as your bad cholesterol. Please continue to make better choices with food and try to work on weight management by increasing exercising, walking after meals for at least 10 minutes. We can recheck the cholesterol panel in the future but if there is no improvement, I we will send you to a wage and salary specialist for an evaluation. ----- Message ----- From: Lab, Background User Sent: 05/27/2025 1:47 PM EST To: Adore Juárez NP documented in this encounter Plan of Treatment Upcoming Encounters Date Type Department Care Team (Late st Contact Info) Description 12/16/2025 10:00 AM EDT [facility] [place] [address] Regina Burton MD [address] [place], [place] documented as of this encounter Visit Diagnoses Not on filedocumented in this encounter Additional Health Concerns Assessment Noted Time PHQ-9 Depression Total Score: 15 025 9:13 AM EST documented as of this encounter Care Teams Oil Tanker Captain Relationship Specialty Start Date End Date Regina Burton MD [address] [facility] [place] [address] PCP - General Internal Medicine 05/27/25 documented as of this encounter
--- OUTSIDE RECORDS SUMMARY | 2025-06-14 11:21 | XMS_ITS | Patient Health Record ---
Author Organization [facility] [place] [address] Care Team Providers Care Casino Runner Name Role Phone NargismathewJavon chi Primary Care [...] Status W/U Status Risk Notes Problem Hypertension (24902140) Hypertension (I10) Active confirmed Problem Depression (215814927) Depression (F32.9) Active confirmed Problem Hypothyroid (50717991) Hypothyroid (E03.9) Active confirmed Problem Orthostatic hypotension (84288168) Orthostatic hypotension (I95.1) Active confirmed Problem Hyperlipidemia (01109622) Hyperlipidemia (E78.5) Active confirmed Problem Carpal tunnel syndrome of right wrist (100464253424085) Carpal tunnel syndrome of right wrist (G56.01) Active confirmed Problem Palpitations (87972580) Palpitation (R00.2) Active confirmed Problem Common migraine (42599803) Common migraine (G43.009) Active confirmed Plan Of Treatment No Information Insurance Providers Payer Name Payer Address Payer Phone Subscriber Number Group Number Insured Name Patient Relationship to Insured Coverage Start Date Coverage End Date [facility] [employer] ([id number]) [id number] [facility] [address] [place] [address] [id number] Guerita Culp Self - patient is the insured 4 [id number]
== END 2025-06-14 10:28 | disposition home or self-care (01) ==
LOC: HO.HOP 09:42
PROVIDERS: PCP Internal Medicine; Visit Provider Clinical Nurse Specialist Psychiatric/Mental Health
DX: F42.3 Hoarding disorder (principal); F33.9 Major depressive disorder, recurrent, unspecified
CPT/HCPCS: 99214

== ENCOUNTER → 2025-06-14 09:42 | Outpatient (BNVA) | payer OTHER, SELFPAY | PROVIDERS: PCP Internal Medicine; Visit Provider Clinical Nurse Specialist Psychiatric/Mental Health | DX: F42.3 Hoarding disorder (principal); F42.9 Obsessive-compulsive disorder, unspecified; F33.9 Major depressive disorder, recurrent, unspecified | CPT/HCPCS: 99212 ==